=== PATIENT | male | born 1955 | race African-American/Black ===

== ENCOUNTER 2016-10-19 12:26 | Emergency (ER) | payer MEDICARE ==
[2016-10-19] MEDS ORDERED: NORMAL SALINE 1000 ML 1,000 ML IV ONE (12:53)
--- NOTE | 2016-10-19 12:54 | ER Document Report ---
ED Medical Screen (RME) - General Stated Complaint: PASSING OUT Mode of Arrival: Wheelchair Information source: Patient Notes: Patient complains of nausea and vomiting for the past 3 days with abdominal pain. Patient reports black coffee-ground emesis. Patient does report syncopal episode 3 today. Patient does complain of dizziness. hx: Hypertension, diabetes I have greeted and performed a rapid initial assessment of this patient. A comprehensive ED assessment and evaluation of the patient, analysis of test results and completion of the medical decision making process will be conducted by additional ED providers. TRAVEL OUTSIDE OF THE [place] IN LAST 30 DAYS: No - Related Data Allergies/Adverse Reactions: lisinopril [Lisinopril] Allergy (Intermediate, Verified 10/19/16 12:50) Unknown reaction Past Medical History - Past Medical History Cardiac Medical History: Reports: Hx Hypercholesterolemia, Hx Hypertension Pulmonary Medical History: Denies: Hx Tuberculosis Endocrine Medical History: Reports: Hx Diabetes Mellitus Type 2 Musculoskeltal Medical History: Reports Hx Arthritis, Reports Hx Musculoskeletal Deformity, Reports Hx Musculoskeletal Trauma Psychiatric Medical History: Reports: Hx Bipolar Disorder, Hx Depression Past Surgical History: Reports: Hx Orthopedic Surgery - left knee - Immunizations Immunizations up to date: Yes Hx Diphtheria, Pertussis, Tetanus Vaccination: Yes Physical Exam - Abdominal Tenderness: Tender - Right side of abdomen
[2016-10-19 13:49] LABS: ABSOLUTE LYMPHOCYTES (AUTO) 1.6 10^3/uL (0.5-4.7); ABSOLUTE MONOCYTES (AUTO) 0.8 10^3/uL (0.1-1.4); ABSOLUTE NEUT (AUTO) 11.7 10^3/uL (1.7-8.2); BASOPHILS % (AUTO) 0.2 % (0-2); EOSINOPHILS % (AUTO) 0.1 % (0-6); HEMATOCRIT 24.4 % (37.9-51.0); HEMOGLOBIN 8.1 g/dL (13.5-17.0); HGB HCT DIFFERENCE -0.1; LYMPHOCYTES % (AUTO) 11.3 % (13-45); MEAN CORPUSCULAR HEMOGLOBIN 29.1 pg (27.0-33.4); MEAN CORPUSCULAR HGB CONC 33.2 g/dL (32.0-36.0); MEAN CORPUSCULAR VOLUME 88 fl (80-97); MONOCYTES % (AUTO) 5.3 % (3-13); RED BLOOD COUNT 2.78 10^6/uL (4.35-5.55); RED CELL DISTRIBUTION WIDTH 12.8 % (11.5-14.0); SEGMENTED NEUTROPHILS % (AUTO) 83.1 % (42-78); WHITE BLOOD COUNT 14.1 10^3/uL (4.0-10.5)
[2016-10-19] MEDS ORDERED: NORMAL SALINE 250 ML IV PRN (14:01)
[2016-10-19] MEDS ORDERED: PANTOPRAZOLE SODIUM 40 MG VIAL IV ONE ×2 (14:03→15:31)
[2016-10-19 14:08] LABS: ALANINE AMINOTRANSFERASE 25 U/L (21-72); ALBUMIN 3.7 g/dL (3.5-5.0); ALKALINE PHOSPHATASE 53 U/L (38-126); ANION GAP 18 (5-19); ASPARTATE AMINO TRANSFERASE 25 U/L (17-59); BILIRUBIN,TOTAL 0.5 mg/dL (0.2-1.3); BLOOD UREA NITROGEN 76 mg/dL (7-20); CALCIUM 8.3 mg/dL (8.4-10.2); CARBON DIOXIDE 24 mmol/L (22-30); CHLORIDE 93 mmol/L (98-107); CREATINE KINASE 670 U/L (55-170); CREATININE RESULT 5.28 mg/dL (0.52-1.25); LIPASE 291.3 U/L (23-300); POTASSIUM 4.6 mmol/L (3.6-5.0); SODIUM 135.3 mmol/L (137-145); TOTAL PROTEIN 6.7 g/dL (6.3-8.2)
--- NOTE | 2016-10-19 14:10 | ER Document Report ---
ED General - General Chief Complaint: Syncope Stated Complaint: PASSING OUT Mode of Arrival: Wheelchair Information source: Patient Notes: This is a very pleasant 60-year-old woman who presents to the ER with symptoms of passing out. He states that he has passed out 5-6 times since which was 4 days ago. He also states that for each of those 4 days he has had several episodes of coffee-ground emesis. He also endorses upper abdominal discomfort for the past month. He has a prior history of alcohol abuse but states he has been sober for 9 months and just picked up his nine-month chip. He has no known history of alcoholic liver disease or esophageal varices. He has never had GI bleeding in the past however he does state that he takes occasional Goody[employer] powders most recently earlier today. He denies any gross blood in his stool or melena. His syncopal episodes appear to be orthostatic in nature. He denies any chest pain at this time or recently. TRAVEL OUTSIDE OF THE [place] IN LAST 30 DAYS: No - Related Data Allergies/Adverse Reactions: lisinopril [Lisinopril] Allergy (Intermediate, Verified 10/19/16 12:50) Unknown reaction Past Medical History - General Information source: Patient - Social History Smoking Status: Unknown if Ever Smoked Chew tobacco use (# tins/day): No Frequency of alcohol use: sober 9 months Drug Abuse: None Family History: Reviewed & Not Pertinent, Arthritis, DM, Hypertension Patient has suicidal ideation: No Patient has homicidal ideation: No - Past Medical History Cardiac Medical History: Reports: Hx Hypercholesterolemia, Hx Hypertension Pulmonary Medical History: Denies: Hx Tuberculosis Endocrine Medical History: Reports: Hx Diabetes Mellitus Type 2 Renal/ Medical History: Denies: Hx Peritoneal Dialysis Musculoskeltal Medical History: Reports Hx Arthritis, Reports Hx Musculoskeletal Deformity, Reports Hx Musculoskeletal Trauma Psychiatric Medical History: Reports: Hx Bipolar Disorder, Hx Depression Past Surgical History: Reports: Hx Orthopedic Surgery - left knee - Immunizations Immunizations up to date: Yes Hx Diphtheria, Pertussis, Tetanus Vaccination: Yes Hx Pneumococcal Vaccination: 11/13/11 Review of Systems - Review of Systems Notes: REVIEW OF SYSTEMS: CONSTITUTIONAL : Denies fever, chills, or sweats. Denies recent illness. EENT: Denies eye, ear, throat, or mouth pain or symptoms. Denies nasal or sinus congestion. CARDIOVASCULAR: Denies chest pain. RESPIRATORY: Denies cough, cold, or chest congestion. Denies shortness of breath, difficulty breathing, or wheezing. GASTROINTESTINAL: As per history of present illness GENITOURINARY: Denies difficulty urinating, painful urination, burning, frequency, or blood in urine. MUSCULOSKELETAL: Denies neck or back pain or joint pain or swelling. SKIN: Denies rash or skin lesions. HEMATOLOGIC : Denies easy bruising or bleeding. LYMPHATIC: Denies swollen, enlarged glands. NEUROLOGICAL: Denies altered mental status. Denies headache. Denies weakness or paralysis or loss of use of either side. Denies problems with gait or speech. Denies sensory or motor loss. Syncope as per history of present illness PSYCHIATRIC: Denies anxiety or stress or depression. ALL OTHER SYSTEMS REVIEWED AND NEGATIVE. Physical Exam - Vital signs Vitals: Temp Pulse BP Pulse Ox 98.9 F 105 H 86/59 L 94 10/19/16 12:48 10/19/16 12:48 10/19/16 12:48 10/19/16 12:48 PHYSICAL EXAMINATION: GENERAL: Well-appearing, well-nourished and in no acute distress. BP during my exam 113/74. He is smiling, alert, conversant and pleasant HEAD: Atraumatic, normocephalic. EYES: Pupils equal round and reactive to light, extraocular movements intact, sclera anicteric, conjunctiva are pale ENT: nares patent, oropharynx clear without exudates. Moist mucous membranes. NECK: Normal range of motion, supple without lymphadenopathy LUNGS: Breath sounds clear to auscultation bilaterally and equal. No wheezes rales or rhonchi. HEART: Regular rhythm, tachycardic rate at 110, without murmurs ABDOMEN: Soft, mild epigastric TTP, normoactive bowel sounds. No guarding, no rebound. No masses appreciated. EXTREMITIES: Normal range of motion, no pitting or edema. NEUROLOGICAL: Cranial nerves grossly intact. Normal speech Normal sensory, motor, and reflex exams. PSYCH: Normal mood, normal affect. SKIN: Warm, Dry, normal turgor, no rashes or lesions noted. Course - Re-evaluation Re-evalutation: 10/19/16 14:46 Patient was reassessed. He is still alert and conversant and pleasant. We discussed his laboratory evaluation including his new anemia as well of his as well as his acute renal failure. He has been typed and crossed for 2 units of packed red blood cells. At this time because we do not have gastroenterology coverage, [facility] will [facility]. He will need EGD. He denies any known history of GI bleed, gastric ulcers or peptic ulcer disease, or esophageal varices. 10/19/16 15:42 Discussed with GI at [facility] Dr. Saeed at 1520. She is agreeable with the consult in transfer. She does recommend a bolus of 80 mg Protonix followed by drip. She is also agreeable with the transfusion of packed RBCs. The accepting physician at [facility] will be . Patient and his family are agreeable with the transfer and they are understanding of the plan. All questions were answered. - Vital Signs Vital signs: Temp Pulse Resp BP Pulse Ox 98.9 F 105 H 14 113/75 100 10/19/16 12:48 10/19/16 12:48 10/19/16 13:44 10/19/16 13:44 10/19/16 13:44 - Laboratory Result Diagrams: 10/19/16 13:21 10/19/16 13:21 Laboratory results interpreted by me: 10/19/16 10/19/16 10/19/16 13:14 13:21 13:21 WBC 14.1 H RBC 2.78 L Hgb 8.1 L Hct 24.4 L Seg Neutrophils % 83.1 H Lymphocytes % 11.3 L Absolute Neutrophils 11.7 H Sodium 135.3 L Chloride 93 L BUN 76 H Creatinine 5.28 H Est GFR ( Amer) 13 L Est GFR (Non-Af Amer) 11 L Glucose 403 H* POC Glucose 396 H Calcium 8.3 L Creatine Kinase 670 H CK-MB (CK-2) Crossmatch 10/19/16 10/19/16 13:21 14:12 WBC RBC Hgb Hct Seg Neutrophils % Lymphocytes % Absolute Neutrophils Sodium Chloride BUN Creatinine Est GFR ( Amer) Est GFR (Non-Af Amer) Glucose POC Glucose Calcium Creatine Kinase CK-MB (CK-2) 4.65 H Crossmatch See Detail - EKG Interpretation by Me Additional EKG results interpreted by me: 10/19/16 14:47 EKG at 1351 demonstrates normal sinus rhythm with a rate of 97 he does demonstrate some mild T-wave abnormalities including flattening inferiorly. There is no ST elevation or depression. Critical Care Note - Critical Care Note Total time excluding time spent on procedures (mins): 35 Comments: Critical care time spent obtaining history from patient or surrogate, discussions with consultants, development of treatment plan with patient or surrogate, evaluation of patient's response to treatment, examination of patient , ordering and performing treatments and interventions, ordering and review of laboratory studies, re-evaluation of patient's condition, ordering and review of radiographic studies and review of old charts Discharge - Discharge Clinical Impression: Upper GI bleed, Symptomatic anemia Hyperglycemia due to type 2 diabetes mellitus Qualifiers: Diabetes mellitus termite renewal inspector insulin use: without detention use Qualified Code(s ): E11.65 - Type 2 diabetes mellitus with hyperglycemia Acute renal failure (ARF) Qualifiers: Acute renal failure type: unspecified Qualified Code(s): N17.9 - Acute kidney failure, unspecified Condition: Stable Disposition: [facility], [facility]
[2016-10-19 14:15] LABS: GLUCOSE 403 mg/dL (75-110)
[2016-10-19 14:20] LABS: CREATINE KINASE MB 4.65 ng/mL (<4.55); TROPONIN I < 0.012 ng/mL
[2016-10-19] MEDS ORDERED: INSULIN REG, HUMAN 100 UNIT/ML 3 ML VIAL (PYX) SUBCUT ONE (14:32)
[2016-10-19] MEDS ORDERED: ONDANSETRON HCL INJ/PF 4 MG/2 ML SDV IV ONE (14:45)
[2016-10-19] MEDS ORDERED: MORPHINE SULFATE 10 MG/ML INJ IV ONE (14:45)
[2016-10-19 15:09] LABS: PROTHROMBIN TIME 15.2 SEC (11.4-15.4)
[2016-10-19 15:10] LABS: PARTIAL THROMBOPLASTIN TIME 30.8 SEC (23.5-35.8)
[2016-10-19] MEDS ORDERED: PANTOPRAZOLE SODIUM 40 MG VIAL IV PRN (15:35)
[2016-10-19 17:08] VITALS: BP 136/81
--- NOTE | 2016-10-19 17:09 | ER Document Report ---
Doctor's Note Notes: 10/19/16 17:08 Patient reevaluation at time of transfer to 5 minutes. He is alert and oriented and has remained hemodynamically stable. He will be transferred to [facility] for gastroenterology consultation and EGD. He and his are comfortable with this plan.
--- NOTE | 2016-10-19 19:24 | EKG REPORT ---
SEVERITY:- BORDERLINE ECG - SINUS RHYTHM BORDERLINE T WAVE ABNORMALITIES : Confirmed by: Andie Peterson 19-Oct-2016 19:23:34
== END 2016-10-19 17:17 | disposition short-term general hospital (02) ==
LOC: ER 12:26
DX: K92.2 Gastrointestinal hemorrhage, unspecified (principal); D50.0 Iron deficiency anemia secondary to blood loss (chronic); E11.65 Type 2 diabetes mellitus with hyperglycemia; N17.9 Acute kidney failure, unspecified; R55 Syncope and collapse; R11.2 Nausea with vomiting, unspecified; E78.00 Pure hypercholesterolemia, unspecified; I10 Essential (primary) hypertension
CPT/HCPCS: 93005; 96376; 99291; 96361; 96374; 96375; 86900; 86901; 36415; 82553; 36430; 86850; 82962; 82550; 83690; 85025; 85610; 85730; 82272; 80053; 84484; 86920; 71010; 93010; P9016; J2270; C9113; A9270; J2405; J7030; J1815; S0164

== ENCOUNTER 2017-01-24 21:45 | Inpatient (IN) | payer MEDICARE ==
[2017-01-24 23:02] LABS: HEMATOCRIT 30.7 % (37.9-51.0); HEMOGLOBIN 10.3 g/dL (13.5-17.0); HGB HCT DIFFERENCE 0.2; MEAN CORPUSCULAR HGB CONC 33.6 g/dL (32.0-36.0); MEAN CORPUSCULAR VOLUME 86 fl (80-97); RED BLOOD COUNT 3.56 10^6/uL (4.35-5.55); RED CELL DISTRIBUTION WIDTH 14.6 % (11.5-14.0); WHITE BLOOD COUNT 14.7 10^3/uL (4.0-10.5)
[2017-01-24] MEDS ORDERED: NALOXONE HCL INJ 2 MG/2 ML DISP.SYRIN ONE ×2 (23:11→23:28)
[2017-01-24 23:12] LABS: ALANINE AMINOTRANSFERASE 20 U/L (21-72); ALBUMIN 4.4 g/dL (3.5-5.0); ALKALINE PHOSPHATASE 68 U/L (38-126); ANION GAP 18 (5-19); ASPARTATE AMINO TRANSFERASE 16 U/L (17-59); BILIRUBIN,DIRECT 0.6 mg/dL (0.0-0.4); BILIRUBIN,TOTAL 0.6 mg/dL (0.2-1.3); BLOOD UREA NITROGEN 47 mg/dL (7-20); CALCIUM 8.4 mg/dL (8.4-10.2); CARBON DIOXIDE 16 mmol/L (22-30); CHLORIDE 105 mmol/L (98-107); CREATININE RESULT 5.08 mg/dL (0.52-1.25); GLUCOSE 187 mg/dL (75-110); POTASSIUM 5.9 mmol/L (3.6-5.0); SODIUM 138.7 mmol/L (137-145); TOTAL PROTEIN 8.1 g/dL (6.3-8.2)
[2017-01-24 23:14] LABS: ALCOHOL < 10 mg/dL (NONE DETECTED)
[2017-01-24] MEDS ORDERED: NORMAL SALINE 500 ML with NALOXONE HCL 2 MG IV PRN ×2 (23:16)
[2017-01-24] MEDS ORDERED: NORMAL SALINE 1000 ML 1,000 ML IV ONE (23:19)
--- NOTE | 2017-01-24 23:21 | ER Document Report ---
ED General - General Stated Complaint: POSSIBLE ACCIDENTAL OVERDOSE Time Seen by Provider: 01/24/17 22:51 Cannot obtain history due to: Intoxicated, Altered mental status Notes: Patient is a 61-year-old male with past mental history of chronic kidney disease , chronic neuropathy for which she apparently takes oxycodone who presents today by EMS after his noticed that increasingly he appeared obtunded, with sonorous respirations. She states when he became unresponsive tonight and appeared totally breathing several times a minute she called EMS. EMS gave patient a total of 2 mg of IV naloxone with normalization of his mental status. At time of my initial assessment, patient is somewhat lethargic but is able to wake up with noxious stimuli. He does not provide additional meaningful history secondary to his intoxicated status. Of note, he picked up a oxycodone 10 mg prescription last night and 13 pills are already missing. TRAVEL OUTSIDE OF THE [place] IN LAST 30 DAYS: No - Related Data Allergies/Adverse Reactions: lisinopril [Lisinopril] Allergy (Intermediate, Verified 10/19/16 12:50) Unknown reaction Past Medical History - General Information source: Relative, Emergency Med Personnel Cannot obtain history due to: Altered mental status - Social History Smoking Status: Unknown if Ever Smoked Frequency of alcohol use: None Drug Abuse: Prescription drugs Lives with: Spouse/Significant other Family History: Reviewed & Not Pertinent, Arthritis, DM, Hypertension - Past Medical History Cardiac Medical History: Reports: Hx Hypercholesterolemia, Hx Hypertension Pulmonary Medical History: Denies: Hx Tuberculosis Endocrine Medical History: Reports: Hx Diabetes Mellitus Type 2 Renal/ Medical History: Denies: Hx Peritoneal Dialysis Musculoskeltal Medical History: Reports Hx Arthritis, Reports Hx Musculoskeletal Deformity, Reports Hx Musculoskeletal Trauma Psychiatric Medical History: Reports: Hx Bipolar Disorder, Hx Depression Past Surgical History: Reports: Hx Orthopedic Surgery - left knee - Immunizations Immunizations up to date: Yes Hx Diphtheria, Pertussis, Tetanus Vaccination: Yes Hx Pneumococcal Vaccination: 11/13/11 Review of Systems - Review of Systems -: Yes ROS unobtainable due to patient's medical condition Physical Exam - Vital signs Vitals: Pulse Ox 98 01/24/17 21:57 Interpretation: Hypotensive Notes: PHYSICAL EXAMINATION: GENERAL: Somewhat lethargic but does respond to noxious stimuli HEAD: Atraumatic, normocephalic. EYES: Pupils are pinpoint, reactive to light extraocular movements intact, sclera anicteric, conjunctiva are normal. ENT: nares patent, oropharynx clear without exudates. Dry mucous membranes. NECK: Normal range of motion, supple without lymphadenopathy LUNGS: Breath sounds clear to auscultation bilaterally and equal. No wheezes rales or rhonchi. HEART: Regular rate and rhythm without murmurs ABDOMEN: Soft, nontender, normoactive bowel sounds. No guarding, no rebound. No masses appreciated. EXTREMITIES: Normal range of motion, no pitting or edema. No cyanosis. NEUROLOGICAL: No focal neurological deficits. Moves all extremities spontaneously and on command. PSYCH: Somewhat confused, slow to respond. Easily response to noxious stimuli. SKIN: Warm, Dry, normal turgor, no rashes or lesions noted. Course - Re-evaluation Re-evalutation: 01/24/17 23:00 Patient presents after receiving 2 mg of IV naloxone for presumed narcotic overdose now more responsive. He was initially with agonal respirations, completely unresponsive. After an IV was established and he received naloxone he did have improvement of his respiratory and mental status. At the time of my initial assessment patient is somewhat somnolent but is maintaining his airway and responsive after noxious stimuli. 2320-patient is now again completely unresponsive. His pupils are again pinpoint and his blood pressure has rapidly deteriorated from low 100s systolic down to 82 systolic. I immediately came to the bedside and pushed 0.2 mg of naloxone over approximately 30 seconds and patient did have improvement of his mental status to the point where he is now speaking in coherent sentences, his respirations normalized and his blood pressure normalized. At this point that is a total of 2.2 mg of naloxone in less than 1.5 hours in order to ensure the patient does not received apnea. Therefore patient will be placed on a naloxone drip. He will require admission to the hospital. 01/24/17 23:34 Patient's laboratories do demonstrate his baseline chronic kidney disease and a mild anemia both of which are simple from the last time he was seen in this emergency department. I discussed this case with Dr. Anthony Jonas who is accepted this patient to the ICU. I have a long conversation with the patient and his about the addictive nature of oxycodone and how he clearly has trouble with narcotic drug abuse. I have informed him as well as the that there is no indication to be on chronic narcotics like this and they should be discontinued immediately. 01/25/17 02:30 Patient has remained alert, oriented without any further episodes of respiratory depression or hypotension on a naloxone drip. - Vital Signs Vital signs: Temp Pulse Resp BP Pulse Ox 81 13 126/75 H 96 01/25/17 00:00 01/25/17 02:14 01/25/17 02:12 01/25/17 02:14 - Laboratory Result Diagrams: 01/24/17 22:50 01/24/17 22:50 Laboratory results interpreted by me: 01/24/17 01/24/17 01/24/17 22:50 22:50 22:50 WBC 14.7 H RBC 3.56 L Hgb 10.3 L Hct 30.7 L RDW 14.6 H Seg Neuts % (Manual) 84 H Band Neutrophils % 2 L Lymphocytes % (Manual) 8 L Abs Neuts (Manual) 12.6 H Potassium 5.9 H Carbon Dioxide 16 L BUN 47 H Creatinine 5.08 H Est GFR ( Amer) 14 L Est GFR (Non-Af Amer) 12 L Glucose 187 H Direct Bilirubin 0.6 H AST 16 L ALT 20 L Creatine Kinase 187 H Salicylates < 1.0 L Acetaminophen < 10 L - EKG Interpretation by Me Additional EKG results interpreted by me: 01/25/17 02:31 Normal sinus rhythm. Rate 83. No ST elevations or depressions. QTC is 423. Critical Care Note - Critical Care Note Total time excluding time spent on procedures (mins): 38 Comments: Critical care time spent obtaining history from patient or surrogate, discussions with consultants, development of treatment plan with patient or surrogate, evaluation of patient's response to treatment, examination of patient , ordering and performing treatments and interventions, ordering and review of laboratory studies, re-evaluation of patient's condition, ordering and review of radiographic studies and review of old charts Discharge - Discharge Clinical Impression: Hypotension due to drugs Narcotic overdose Qualifiers: Encounter type: initial encounter Injury intent: accidental or unintentional Qualified Code(s): T40.601A - Poisoning by unspecified narcotics, accidental ( unintentional), initial encounter Chronic kidney disease Qualifiers: Chronic kidney disease stage: unspecified stage Qualified Code(s): N18.9 - Chronic kidney disease, unspecified Disposition: ADMITTED INPATIENT Admitting Provider: [facility] Unit Admitted: ICU
[2017-01-24 23:25] LABS: ANISOCYTOSIS SLIGHT; BAND NEUTROPHILS % (MANUAL) 2 % (3-5); BASOPHILS % (MANUAL) 0 % (0-2); EOSINOPHILS % (MANUAL) 1 % (0-6); LYMPHOCYTES % (MANUAL) 8 % (13-45); TOTAL CELLS COUNTED 100
[2017-01-24] MEDS ORDERED: SODIUM POLYSTYRENE SULFONATE 15 GM/60 ML PO ONE (23:25)
[2017-01-24] MEDS ORDERED: LACTULOSE SYRUP 20 GM/30 ML UDCUP PO ONE (23:25)
[2017-01-24 23:26] LABS: PLATELET CLUMPS PRESENT
[2017-01-24] MEDS ORDERED: DEXTROSE 50%-WATER 25 GM/50 ML DISP.SYRIN IV PRN ×2 (23:27)
[2017-01-24] MEDS ORDERED: IPRATROPIUM/ALBUTEROL 0.5-2.5 MG/3 ML AMPUL NEB PRN (23:27)
[2017-01-24] MEDS ORDERED: DEXTROSE 40% GEL 15 GM TUBE PO PRN ×2 (23:27)
[2017-01-24] MEDS ORDERED: MAG HYDROX/AL HYDROX/SIMETH SUSP 30 ML UDCUP PO PRN (23:27)
[2017-01-24] MEDS ORDERED: GLUCAGON,HUMAN RECOMB 1 MG INJ IM PRN (23:27)
[2017-01-24] MEDS ORDERED: ACETAMINOPHEN 325 MG TABLET PO PRN (23:27)
[2017-01-24 23:28] LABS: OVALOCYTES SLIGHT; POIKILOCYTOSIS SLIGHT
[2017-01-24] MEDS ORDERED: METOPROLOL TARTRATE 50 MG TABLET PO SCH (23:30)
[2017-01-24] MEDS ORDERED: NORMAL SALINE 1000 ML 1,000 ML IV SCH (23:30)
[2017-01-25 00:07] LABS: CREATINE KINASE MB 2.43 ng/mL (<4.55)
[2017-01-25 00:18] LABS: TROPONIN I < 0.012 ng/mL
[2017-01-25] MEDS: IPRATROPIUM/ALBUTEROL 0.5-2.5 MG/3 ML AMPUL NEB SCH ×3 (00:31→16:03)
[2017-01-25 04:32] LABS: APPEARANCE,URINE SLIGHTLY-CLOUDY; BILIRUBIN,URINE NEGATIVE (NEGATIVE); GLUCOSE, URINE NEGATIVE (NEGATIVE); KETONES,URINE NEGATIVE (NEGATIVE); LEUKOCYTE ESTERASE,URINE NEGATIVE (NEGATIVE); NITRITE,URINE NEGATIVE (NEGATIVE); PROTEIN,URINE NEGATIVE (NEGATIVE); URINE SPECIFIC GRAVITY 1.013; UROBILINOGEN,URINE NEGATIVE mg/dL (<2.0)
[2017-01-25 04:58] LABS: URINE BARBITURATES SCREEN NEGATIVE; URINE METHADONE SCREEN NEGATIVE; URINE PHENCYCLIDINE SCREEN NEGATIVE
[2017-01-25 05:05] LABS: URINE OPIATES LOW UNCONFIRMED POSITIVE
[2017-01-25 05:06] LABS: ABSOLUTE EOSINOPHILS # (AUTO) 0.4 10^3/uL (0.0-0.6); ABSOLUTE LYMPHOCYTES (AUTO) 1.4 10^3/uL (0.5-4.7); ABSOLUTE MONOCYTES (AUTO) 1.2 10^3/uL (0.1-1.4); ABSOLUTE NEUT (AUTO) 10.8 10^3/uL (1.7-8.2); BASOPHILS % (AUTO) 0.3 % (0-2); HEMATOCRIT 28.1 % (37.9-51.0); HEMOGLOBIN 9.1 g/dL (13.5-17.0); HGB HCT DIFFERENCE -0.8; LYMPHOCYTES % (AUTO) 10.3 % (13-45); MEAN CORPUSCULAR HEMOGLOBIN 28.4 pg (27.0-33.4); MEAN CORPUSCULAR HGB CONC 32.5 g/dL (32.0-36.0); MEAN CORPUSCULAR VOLUME 88 fl (80-97); MONOCYTES % (AUTO) 8.4 % (3-13); RED BLOOD COUNT 3.21 10^6/uL (4.35-5.55); RED CELL DISTRIBUTION WIDTH 14.4 % (11.5-14.0); WHITE BLOOD COUNT 13.8 10^3/uL (4.0-10.5)
[2017-01-25] MEDS: HEPARIN SOD (PORCINE) 5,000 UNIT/ML 1 ML SYRINGE SUBCUT SCH ×3 (05:18→21:44)
[2017-01-25 05:23] LABS: ANION GAP 12 (5-19); BLOOD UREA NITROGEN 52 mg/dL (7-20); CALCIUM 8.1 mg/dL (8.4-10.2); CARBON DIOXIDE 18 mmol/L (22-30); CHLORIDE 109 mmol/L (98-107); CREATINE KINASE 202 U/L (55-170); CREATININE RESULT 4.98 mg/dL (0.52-1.25); GLUCOSE 160 mg/dL (75-110); POTASSIUM 5.3 mmol/L (3.6-5.0); SODIUM 139.2 mmol/L (137-145)
[2017-01-25 05:42] LABS: TROPONIN I < 0.012 ng/mL
--- NOTE | 2017-01-25 08:46 | PDOC PROGRESS REPORT ---
Subjective Progress Note for:: 01/18/17 Subjective:: Patient reportedly without any discomfort. Patient is resting comfortably. Admitted for altered mental status, given Narcan and mental status improved. Creatinine is worse than baseline. No reported temperature spikes, shortness of breath, nausea or vomiting. No reported diarrhea. Physical Exam Vital Signs: Temp Pulse Resp BP Pulse Ox 97.2 F 80 11 L 108/68 99 01/25/17 07:54 01/25/17 07:54 01/25/17 07:54 01/25/17 07:54 01/25/17 07:54 Intake & Output 01/24/17 01/25/17 01/26/17 06:59 06:59 06:59 Intake Total 0 Output Total 700 35 Balance -700 -35 Weight 94 kg General appearance: PRESENT: no acute distress, other - Resting comfortably Head exam: PRESENT: normocephalic Eye exam: PRESENT: conjunctiva pink Mouth exam: PRESENT: dry mucosa, neck supple Neck exam: ABSENT: carotid bruit, JVD Respiratory exam: PRESENT: clear to auscultation dimitrios. ABSENT: rhonchi, wheezes Cardiovascular exam: PRESENT: RRR. ABSENT: gallop GI/Abdominal exam: PRESENT: hypoactive bowel sounds, soft. ABSENT: distended, tenderness Extremities exam: ABSENT: pedal edema Neurological exam: PRESENT: altered Skin exam: PRESENT: dry, warm. ABSENT: cyanosis Results Laboratory Results: 01/25/17 04:55 01/25/17 04:55 01/25/17 01/25/17 01/25/17 04:15 04:55 04:55 WBC 13.8 H RBC 3.21 L Hgb 9.1 L Hct 28.1 L MCV 88 MCH 28.4 MCHC 32.5 RDW 14.4 H Plt Count 234 Seg Neutrophils % 78.0 Lymphocytes % 10.3 L Monocytes % 8.4 Eosinophils % 3.0 Basophils % 0.3 Absolute Neutrophils 10.8 H Absolute Lymphocytes 1.4 Absolute Monocytes 1.2 Absolute Eosinophils 0.4 Absolute Basophils 0.0 Sodium 139.2 Potassium 5.3 H Chloride 109 H Carbon Dioxide 18 L Anion Gap 12 BUN 52 H Creatinine 4.98 H Est GFR ( Amer) 14 L Est GFR (Non-Af Amer) 12 L Glucose 160 H Calcium 8.1 L Urine Color YELLOW Urine Appearance SLIGHTLY-CLOUDY Urine pH 5.0 Ur Specific [place] 1.013 Urine Protein NEGATIVE Urine Glucose (UA) NEGATIVE Urine Ketones NEGATIVE Urine Blood SMALL H Urine Nitrite NEGATIVE Ur Leukocyte Esterase NEGATIVE Urine WBC (Auto) 4 Urine RBC (Auto) 0 01/25/17 01/25/17 04:55 04:55 Creatine Kinase 202 H CK-MB (CK-2) 2.60 Troponin I < 0.012 Assessment & Plan - Diagnosis (1) Altered mental status, unspecified Qualifiers: Altered mental status type: unspecified Qualified Code(s): R41.82 - Altered mental status, unspecified Is this a current diagnosis for this admission?: Yes (2) Hypotension due to drugs Is this a current diagnosis for this admission?: Yes (3) Acute renal failure Qualifiers: Acute renal failure type: unspecified Qualified Code(s): N17.9 - Acute kidney failure, unspecified (4) Hyperkalemia Is this a current diagnosis for this admission?: Yes (5) Leukocytosis Qualifiers: Leukocytosis type: unspecified Qualified Code(s): D72.829 - Elevated white blood cell count, unspecified Is this a current diagnosis for this admission?: Yes (6) Anemia Qualifiers: Anemia type: unspecified type Qualified Code(s): D64.9 - Anemia, unspecified Is this a current diagnosis for this admission?: Yes (7) Type II diabetes mellitus Qualifiers: Diabetes mellitus complication status: with unspecified complications Diabetes mellitus computer terminal operator insulin use: unspecified computer terminal operator insulin use status Qualified Code(s): E11.8 - Type 2 diabetes mellitus with unspecified complications Is this a current diagnosis for this admission?: Yes (8) Hyperlipidemia Qualifiers: Hyperlipidemia type: unspecified Qualified Code(s): E78.5 - Hyperlipidemia, unspecified Is this a current diagnosis for this admission?: Yes (9) Peripheral neuropathy Qualifiers: Peripheral neuropathy type: polyneuropathy, unspecified Qualified Code(s): G62.9 - Polyneuropathy, unspecified Is this a current diagnosis for this admission?: Yes (10) Essential hypertension Is this a current diagnosis for this admission?: Yes (11) Bipolar disorder Qualifiers: Active/Remission status: remission status unspecified Qualified Code (s): F31.9 - Bipolar disorder, unspecified Is this a current diagnosis for this admission?: Yes (12) Chronic pain syndrome Is this a current diagnosis for this admission?: Yes - Time Time Spent with patient: 25-34 minutes - Plan Summary Plan Summary: Continue IV hydration. Obtain a renal ultrasound. Give Kayexalate and monitor potassium. Monitor hematocrit and obtain anemia profile as well as occult blood in the stool. Discontinue trazodone, hold metoprolol due to hypotension. We'll obtain a chest x-ray, and a urine culture. Continue supportive care.
[2017-01-25] MEDS ORDERED: SODIUM POLYSTYRENE SULFONATE 15 GM/60 ML PO ONE (09:00)
[2017-01-25] MEDS ORDERED: TRAZODONE HCL 50 MG TABLET PO SCH (10:00)
--- NOTE | 2017-01-25 11:36 | EKG REPORT ---
SEVERITY:- NORMAL ECG - SINUS RHYTHM : Confirmed by: Andie Peterson 25-Jan-2017 11:36:01
--- NOTE | 2017-01-25 11:37 | EKG REPORT ---
SEVERITY:- NORMAL ECG - SINUS RHYTHM : Confirmed by: Andie Peterson 25-Jan-2017 11:36:11
[2017-01-25] MEDS: NORMAL SALINE 1000 ML 1,000 ML IV PRN ×2 (11:38→16:09)
[2017-01-25 12:00] LABS: CREATINE KINASE MB 2.67 ng/mL (<4.55); TROPONIN I < 0.012 ng/mL
[2017-01-25] MEDS: INSULIN LISPRO 100 UNIT/ML 3 ML VIAL SUBCUT PRN ×2 (12:39→23:09)
[2017-01-25 18:20] LABS: ANION GAP 18 (5-19); BLOOD UREA NITROGEN 50 mg/dL (7-20); CALCIUM 8.2 mg/dL (8.4-10.2); CARBON DIOXIDE 17 mmol/L (22-30); CHLORIDE 109 mmol/L (98-107); CREATININE RESULT 5.53 mg/dL (0.52-1.25); GLUCOSE 99 mg/dL (75-110); SODIUM 143.9 mmol/L (137-145)
[2017-01-25 18:41] LABS: POTASSIUM 4.2 mmol/L (3.6-5.0)
--- NOTE | 2017-01-25 20:32 | PDOC H&P ---
History of Present Illness Admission Date/PCP: 01/25/17 00:05 JORGE WILLIAMSON Patient complains of: Altered mental status History of Present Illness: LAKIESHA YATES is a 61 year old male with a past medical history of nonoliguric stage V chronic kidney disease, hypertension, diabetes and chronic pain. Patient been in his usual state of health until approximately 3 days ago noting exceptional right sided arthritic shoulder pain. Subsequently losing track of his oxycodone dosing regiment and as a result taking approximately 13 tablets of oxycodone 10 mg over the last 24 hours. He was noted by his to be altered calling EMS finding him apneic he receives 2 mg of Narcan resulting in baseline mental status brought to the emergency room for evaluation where again he becomes apneic and IV Narcan is started. He is referred to the hospitalist for admission. is at bedside admits to several episodes in the past of running out of narcotic medications prematurely. Patient denies suicide ideation or intent. Past Medical History Cardiac Medical History: Reports: Hyperlipidema, Hypertension Pulmonary Medical History: Reports: Chronic Obstructive Pulmonary Disease (COPD) Denies: Tuberculosis Endocrine Medical History: Reports: Diabetes Mellitus Type 2 Musculoskeltal Medical History: Reports: Arthritis, Other - Chronic pain Psychiatric Medical History: Reports: Bipolar Disorder, Depression Hematology: Denies: Anemia, Hemophilia, Sickle Cell Disease Past Surgical History Past Surgical History: Reports: Orthopedic Surgery - left knee Social History Information Source: Patient, Emergency Med Personnel, [facility] Records Lives with: Spouse/Significant other Smoking Status: Never Smoker Frequency of Alcohol Use: None Hx Recreational Drug Use: No Drugs: None Hx Prescription Drug Abuse: Yes - Advance Directive Resuscitation Status: Full Code Family History Family History: Reviewed & Not Pertinent, Arthritis, DM, Hypertension Parental Family History Reviewed: Yes Children Family History Reviewed: Yes Sibling(s) Family History Reviewed.: Yes Medication/Allergy Home Medications: Amlodipine Besylate [Norvasc 10 mg Tablet] 10 mg PO DAILY 01/25/17 Cyclobenzaprine HCl [Flexeril 10 mg Tablet] 10 mg PO Q8 01/25/17 Ergocalciferol (Vitamin D2) [Vitamin D2] 50,000 unit PO Q7D 01/25/17 Gabapentin [Neurontin] 600 mg PO Q6 01/25/17 Glipizide [Glocotrol 10 Mg Tablet] 10 mg PO DAILY 01/25/17 Hydrochlorothiazide 25 mg PO DAILY 01/25/17 Lurasidone HCl [Latuda] 40 mg PO DAILY 01/25/17 Metformin HCl [Glucophage] 1,000 mg PO BID 01/25/17 Metoprolol Tartrate [Lopressor 100 mg Tablet] 100 mg PO Q12 01/25/17 Naproxen 500 mg PO BID 01/25/17 Oxycodone HCl/Acetaminophen [Percocet 10-325 Mg Tablet] 1 tab PO Q12 01/25/17 Sertraline HCl [Zoloft] 100 mg PO DAILY 01/25/17 Sertraline HCl [Zoloft] 100 mg PO DAILY 01/25/17 Trazodone HCl 150 mg PO QHS 01/25/17 Allergies/Adverse Reactions: lisinopril [Lisinopril] Allergy (Intermediate, Verified 10/19/16 12:50) Unknown reaction Review of Systems Constitutional: ABSENT: chills, fever(s), headache(s), weight gain, weight loss Eyes: ABSENT: visual disturbances Ears: ABSENT: hearing changes Cardiovascular: ABSENT: chest pain, dyspnea on exertion, edema, orthropnea, palpitations Respiratory: ABSENT: cough, hemoptysis Gastrointestinal: ABSENT: abdominal pain, constipation, diarrhea, hematemesis, hematochezia, nausea, vomiting Genitourinary: ABSENT: dysuria, hematuria Musculoskeletal: PRESENT: other - Right-sided arthritic shoulder pain. ABSENT: joint swelling Integumentary: ABSENT: rash, wounds Neurological: ABSENT: abnormal gait, abnormal speech, confusion, dizziness, focal weakness, syncope Psychiatric: ABSENT: anxiety, depression, homidical ideation, suicidal ideation Endocrine: ABSENT: cold intolerance, heat intolerance, polydipsia, polyuria Hematologic/Lymphatic: ABSENT: easy bleeding, easy bruising Physical Exam Vital Signs: Temp Pulse Resp BP Pulse Ox 99.2 F 78 18 132/84 H 98 01/25/17 15:34 01/25/17 16:07 01/25/17 16:07 01/25/17 15:34 01/25/17 16:07 Intake & Output 01/24/17 01/25/17 01/26/17 11:59 11:59 11:59 Intake Total 400 1980 Output Total 835 225 Balance -435 1755 Weight 94 kg General appearance: PRESENT: no acute distress, well-developed, well-nourished Head exam: PRESENT: atraumatic, normocephalic Eye exam: PRESENT: conjunctiva pink, EOMI, PERRLA. ABSENT: scleral icterus Ear exam: PRESENT: normal external ear exam Mouth exam: PRESENT: dry mucosa, tongue midline Neck exam: ABSENT: carotid bruit, JVD, lymphadenopathy, thyromegaly Respiratory exam: PRESENT: clear to auscultation dimitrios. ABSENT: rales, rhonchi, wheezes Cardiovascular exam: PRESENT: RRR. ABSENT: diastolic murmur, rubs, systolic murmur Pulses: PRESENT: normal dorsalis pedis pul Vascular exam: PRESENT: normal capillary refill GI/Abdominal exam: PRESENT: firm, hypoactive bowel sounds, soft. ABSENT: distended, guarding, mass, organolmegaly, rebound, tenderness Rectal exam: PRESENT: deferred Extremities exam: PRESENT: full ROM. ABSENT: calf tenderness, clubbing, pedal edema Neurological exam: PRESENT: alert, awake, oriented to person, oriented to place , oriented to time, oriented to situation, CN II-XII grossly intact. ABSENT: motor sensory deficit Psychiatric exam: PRESENT: appropriate affect, normal mood. ABSENT: homicidal ideation, suicidal ideation Skin exam: PRESENT: dry, intact, warm. ABSENT: cyanosis, rash Results Laboratory Results: 01/25/17 04:55 01/25/17 17:45 01/25/17 01/25/17 01/25/17 04:15 04:55 04:55 WBC 13.8 H RBC 3.21 L Hgb 9.1 L Hct 28.1 L MCV 88 MCH 28.4 MCHC 32.5 RDW 14.4 H Plt Count 234 Seg Neutrophils % 78.0 Lymphocytes % 10.3 L Monocytes % 8.4 Eosinophils % 3.0 Basophils % 0.3 Absolute Neutrophils 10.8 H Absolute Lymphocytes 1.4 Absolute Monocytes 1.2 Absolute Eosinophils 0.4 Absolute Basophils 0.0 Retic Count (auto) Absolute Retic Sodium 139.2 Potassium 5.3 H Chloride 109 H Carbon Dioxide 18 L Anion Gap 12 BUN 52 H Creatinine 4.98 H Est GFR ( Amer) 14 L Est GFR (Non-Af Amer) 12 L Glucose 160 H Calcium 8.1 L Iron TIBC % Saturation Ferritin Vitamin B12 Folate Urine Color YELLOW Urine Appearance SLIGHTLY-CLOUDY Urine pH 5.0 Ur Specific Reading 1.013 Urine Protein NEGATIVE Urine Glucose (UA) NEGATIVE Urine Ketones NEGATIVE Urine Blood SMALL H Urine Nitrite NEGATIVE Ur Leukocyte Esterase NEGATIVE Urine WBC (Auto) 4 Urine RBC (Auto) 0 01/25/17 01/25/17 01/25/17 04:55 04:55 17:45 WBC RBC Hgb Hct MCV MCH MCHC RDW Plt Count Seg Neutrophils % Lymphocytes % Monocytes % Eosinophils % Basophils % Absolute Neutrophils Absolute Lymphocytes Absolute Monocytes Absolute Eosinophils Absolute Basophils Retic Count (auto) 0.87 Absolute Retic 0.028 Sodium 143.9 Potassium 4.2 D Chloride 109 H Carbon Dioxide 17 L Anion Gap 18 BUN 50 H Creatinine 5.53 H Est GFR ( Amer) 13 L Est GFR (Non-Af Amer) 10 L Glucose 99 Calcium 8.2 L Iron 13.7 L TIBC 258 % Saturation 5 Ferritin 171.00 Vitamin B12 934.0 H Folate 16.40 Urine Color Urine Appearance Urine pH Ur Specific Reading Urine Protein Urine Glucose (UA) Urine Ketones Urine Blood Urine Nitrite Ur Leukocyte Esterase Urine WBC (Auto) Urine RBC (Auto) 01/25/17 01/25/17 01/25/17 04:55 04:55 11:08 Creatine Kinase 202 H 217 H CK-MB (CK-2) 2.60 Troponin I < 0.012 01/25/17 11:08 Creatine Kinase CK-MB (CK-2) 2.67 Troponin I < 0.012 Impressions: Chest X-Ray 01/25/17 00:00 IMPRESSION: No acute consolidations or pleural effusions are identified. Other findings as noted above Renal Ultrasound 01/25/17 00:00 IMPRESSION: No significant renal abnormalities are identified. Other findings as noted above Assessment & Plan - Diagnosis (1) Opiate overdose Is this a current diagnosis for this admission?: YesPlan: ICU admission, IV Narcan and supportive measures, consider psych eval (2) Acute on chronic renal failure Is this a current diagnosis for this admission?: YesPlan: Likely Secondary to dehydration however all evaluate a total CK to rule out rhabdomyolysis, the patient is nonoliguric will trial fluid challenge and follow -up chemistry. Avoiding nephrotoxic meds and doses (3) Hyperkalemia Is this a current diagnosis for this admission?: YesPlan: Secondary to opiate-induced constipation. No peak T waves. I will order Kayexalate and lactulose with reevaluation of chemistry - Time Time Spent: 50 to 70 Minutes - Inpatient Certification Medical Necessity: Need Close Monitoring Due to Risk of Patient Decompensation
[2017-01-25] MEDS: METOPROLOL TARTRATE 100 MG TABLET PO SCH (21:43)
[2017-01-25] MEDS: TRAZODONE HCL 50 MG TABLET PO SCH (21:44)
[2017-01-25] MEDS ORDERED: AMLODIPINE BESYLATE 10 MG TABLET PO ONE (22:00)
[2017-01-26] MEDS: IPRATROPIUM/ALBUTEROL 0.5-2.5 MG/3 ML AMPUL NEB SCH ×4 (00:23→23:54)
[2017-01-26] MEDS: NORMAL SALINE 1000 ML 1,000 ML IV PRN ×2 (00:47→06:37)
[2017-01-26] MEDS: HEPARIN SOD (PORCINE) 5,000 UNIT/ML 1 ML SYRINGE SUBCUT SCH ×3 (05:31→21:41)
[2017-01-26 06:23] LABS: HEMATOCRIT 28.3 % (37.9-51.0); HEMOGLOBIN 9.3 g/dL (13.5-17.0); HGB HCT DIFFERENCE -0.4; MEAN CORPUSCULAR HEMOGLOBIN 28.7 pg (27.0-33.4); MEAN CORPUSCULAR HGB CONC 32.8 g/dL (32.0-36.0); MEAN CORPUSCULAR VOLUME 88 fl (80-97); RED BLOOD COUNT 3.22 10^6/uL (4.35-5.55); RED CELL DISTRIBUTION WIDTH 14.4 % (11.5-14.0); WHITE BLOOD COUNT 11.1 10^3/uL (4.0-10.5)
[2017-01-26 06:51] LABS: ANION GAP 14 (5-19); BLOOD UREA NITROGEN 49 mg/dL (7-20); CALCIUM 7.9 mg/dL (8.4-10.2); CARBON DIOXIDE 15 mmol/L (22-30); CHLORIDE 111 mmol/L (98-107); CREATININE RESULT 5.26 mg/dL (0.52-1.25); GLUCOSE 128 mg/dL (75-110); MAGNESIUM 1.4 mg/dL (1.6-2.3); POTASSIUM 4.5 mmol/L (3.6-5.0); SODIUM 140.2 mmol/L (137-145)
--- NOTE | 2017-01-26 10:31 | PDOC PROGRESS REPORT ---
Subjective Progress Note for:: 01/26/17 Subjective:: More awake and alert and responsive. No reported temperature spikes, or respiratory distress. Patient denies any coughing, paroxysmal nocturnal dyspnea , orthopnea. Denies any chest pain or chest congestion. Physical Exam Vital Signs: Temp Pulse Resp BP Pulse Ox 98.5 F 84 18 137/79 H 97 01/26/17 04:11 01/26/17 08:50 01/26/17 08:50 01/26/17 04:11 01/26/17 08:50 Intake & Output 01/25/17 01/26/17 01/27/17 06:59 06:59 06:59 Intake Total 0 4190 Output Total 700 690 Balance -700 3500 Weight 94 kg 95.2 kg General appearance: PRESENT: no acute distress, cooperative, obese Head exam: PRESENT: normocephalic Eye exam: PRESENT: EOMI Mouth exam: PRESENT: moist, neck supple Neck exam: ABSENT: JVD Respiratory exam: PRESENT: clear to auscultation dimitrios. ABSENT: rhonchi, wheezes Cardiovascular exam: PRESENT: RRR. ABSENT: gallop GI/Abdominal exam: PRESENT: soft. ABSENT: distended, tenderness Extremities exam: ABSENT: pedal edema Neurological exam: PRESENT: alert, awake Skin exam: PRESENT: dry, warm. ABSENT: cyanosis Results Laboratory Results: 01/26/17 05:24 01/26/17 05:24 01/25/17 01/25/17 01/26/17 04:55 17:45 05:24 WBC 11.1 H RBC 3.22 L Hgb 9.3 L Hct 28.3 L MCV 88 MCH 28.7 MCHC 32.8 RDW 14.4 H Plt Count 205 Sodium 143.9 Potassium 4.2 D Chloride 109 H Carbon Dioxide 17 L Anion Gap 18 BUN 50 H Creatinine 5.53 H Est GFR ( Amer) 13 L Est GFR (Non-Af Amer) 10 L Glucose 99 Calcium 8.2 L Magnesium Iron 13.7 L TIBC 258 % Saturation 5 Ferritin 171.00 Vitamin B12 934.0 H Folate 16.40 01/26/17 05:24 WBC RBC Hgb Hct MCV MCH MCHC RDW Plt Count Sodium 140.2 Potassium 4.5 Chloride 111 H Carbon Dioxide 15 L Anion Gap 14 BUN 49 H Creatinine 5.26 H Est GFR ( Amer) 13 L Est GFR (Non-Af Amer) 11 L Glucose 128 H Calcium 7.9 L Magnesium 1.4 L Iron TIBC % Saturation Ferritin Vitamin B12 Folate 01/25/17 01/25/17 01/25/17 04:55 04:55 11:08 Creatine Kinase 202 H 217 H CK-MB (CK-2) 2.60 Troponin I < 0.012 01/25/17 11:08 Creatine Kinase CK-MB (CK-2) 2.67 Troponin I < 0.012 Impressions: Chest X-Ray 01/25/17 00:00 IMPRESSION: No acute consolidations or pleural effusions are identified. Other findings as noted above Renal Ultrasound 01/25/17 00:00 IMPRESSION: No significant renal abnormalities are identified. Other findings as noted above Assessment & Plan - Diagnosis (1) Altered mental status, unspecified Qualifiers: Altered mental status type: unspecified Qualified Code(s): R41.82 - Altered mental status, unspecified Is this a current diagnosis for this admission?: Yes (2) Hypotension due to drugs Is this a current diagnosis for this admission?: Yes (3) Acute renal failure Qualifiers: Acute renal failure type: unspecified Qualified Code(s): N17.9 - Acute kidney failure, unspecified (4) Hyperkalemia Is this a current diagnosis for this admission?: Yes (5) Leukocytosis Qualifiers: Leukocytosis type: unspecified Qualified Code(s): D72.829 - Elevated white blood cell count, unspecified Is this a current diagnosis for this admission?: Yes (6) Anemia Qualifiers: Anemia type: unspecified type Qualified Code(s): D64.9 - Anemia, unspecified Is this a current diagnosis for this admission?: Yes (7) Type II diabetes mellitus Qualifiers: Diabetes mellitus complication status: with unspecified complications Diabetes mellitus long-term insulin use: unspecified long-term insulin use status Qualified Code(s): E11.8 - Type 2 diabetes mellitus with unspecified complications; Z79.4 - joint terminal attack controller (current) use of insulin Is this a current diagnosis for this admission?: Yes (8) Hyperlipidemia Qualifiers: Hyperlipidemia type: unspecified Qualified Code(s): E78.5 - Hyperlipidemia, unspecified Is this a current diagnosis for this admission?: Yes (9) Peripheral neuropathy Qualifiers: Peripheral neuropathy type: polyneuropathy, unspecified Qualified Code(s): G62.9 - Polyneuropathy, unspecified Is this a current diagnosis for this admission?: Yes (10) Essential hypertension Is this a current diagnosis for this admission?: Yes (11) Bipolar disorder Qualifiers: Active/Remission status: remission status unspecified Qualified Code (s): F31.9 - Bipolar disorder, unspecified Is this a current diagnosis for this admission?: Yes (12) Chronic pain syndrome Is this a current diagnosis for this admission?: Yes - Time Time Spent with patient: 25-34 minutes - Plan Summary Plan Summary: WBC continues to trend down. Renal ultrasound showed no obstruction. We will continue hydration, monitor creatinine. Avoid nephrotoxic drugs. Begin diet. Continue supportive care. Out of bed. Physical therapy.
[2017-01-26] MEDS: AMLODIPINE BESYLATE 10 MG TABLET PO SCH (10:53)
[2017-01-26] MEDS: METOPROLOL TARTRATE 100 MG TABLET PO SCH ×2 (10:54→21:41)
[2017-01-26] MEDS ORDERED: LORAZEPAM 0.5 MG TABLET PO ONE (20:29)
[2017-01-26] MEDS: TRAZODONE HCL 50 MG TABLET PO SCH (21:41)
[2017-01-26] MEDS: INSULIN LISPRO 100 UNIT/ML 3 ML VIAL SUBCUT PRN (21:52)
[2017-01-27] MEDS ORDERED: LORAZEPAM 0.5 MG TABLET PO ONE (00:16)
[2017-01-27] MEDS ORDERED: LORAZEPAM 1 MG TABLET PO ONE (04:08)
[2017-01-27] MEDS: HEPARIN SOD (PORCINE) 5,000 UNIT/ML 1 ML SYRINGE SUBCUT SCH ×3 (06:00→22:36)
[2017-01-27] MEDS: NORMAL SALINE 1000 ML 1,000 ML IV PRN ×2 (06:07→13:45)
[2017-01-27] MEDS: IPRATROPIUM/ALBUTEROL 0.5-2.5 MG/3 ML AMPUL NEB SCH ×3 (07:42→23:49)
[2017-01-27 08:05] LABS: ANION GAP 13 (5-19); BLOOD UREA NITROGEN 45 mg/dL (7-20); CALCIUM 7.8 mg/dL (8.4-10.2); CARBON DIOXIDE 15 mmol/L (22-30); CHLORIDE 113 mmol/L (98-107); CREATININE RESULT 5.06 mg/dL (0.52-1.25); GLUCOSE 145 mg/dL (75-110); POTASSIUM 4.7 mmol/L (3.6-5.0); SODIUM 140.6 mmol/L (137-145)
[2017-01-27] MEDS: METOPROLOL TARTRATE 100 MG TABLET PO SCH ×2 (10:50→22:37)
[2017-01-27] MEDS: AMLODIPINE BESYLATE 10 MG TABLET PO SCH (10:51)
--- NOTE | 2017-01-27 11:38 | PDOC PROGRESS REPORT ---
Subjective Progress Note for:: 01/27/17 Subjective:: Patient reportedly w/ some agitation last night. There is restlessness, but patient reports she was having pain on his legs. No reported temperature spikes , nausea or vomiting, diarrhea, chills or fever. No respiratory distress reported as well. Patient reports some cough. Patient was trying to pull out Saeed catheter, an IV line last night. Ativan was given. Physical Exam Vital Signs: Temp Pulse Resp BP Pulse Ox 98.0 F 86 16 133/82 H 94 01/27/17 07:38 01/27/17 07:44 01/27/17 07:42 01/27/17 07:38 01/27/17 07:42 Intake & Output 01/26/17 01/27/17 01/28/17 06:59 06:59 06:59 Intake Total 4190 3010 Output Total 690 1900 Balance 3500 1110 Weight 95.2 kg 95.2 kg General appearance: PRESENT: no acute distress, cooperative, obese, other - Lethargic but arousable Head exam: PRESENT: normocephalic Eye exam: PRESENT: conjunctiva pale, EOMI Mouth exam: PRESENT: moist, neck supple Neck exam: ABSENT: JVD Respiratory exam: PRESENT: clear to auscultation dimitrios. ABSENT: rhonchi, wheezes Cardiovascular exam: PRESENT: RRR. ABSENT: gallop GI/Abdominal exam: PRESENT: hypoactive bowel sounds, soft. ABSENT: distended, tenderness Extremities exam: PRESENT: other - Trace pretibial edema Neurological exam: PRESENT: alert, awake, oriented to situation Skin exam: PRESENT: dry, warm. ABSENT: cyanosis Results Laboratory Results: 01/26/17 05:24 01/27/17 07:32 01/27/17 07:32 Sodium 140.6 Potassium 4.7 Chloride 113 H Carbon Dioxide 15 L Anion Gap 13 BUN 45 H Creatinine 5.06 H Est GFR ( Amer) 14 L Est GFR (Non-Af Amer) 12 L Glucose 145 H Calcium 7.8 L 01/25/17 04:15 Catheterized Urine Urine Culture - Final NO GROWTH 2 DAYS 01/25/17 01/25/17 01/25/17 04:55 04:55 11:08 Creatine Kinase 202 H 217 H CK-MB (CK-2) 2.60 Troponin I < 0.012 01/25/17 11:08 Creatine Kinase CK-MB (CK-2) 2.67 Troponin I < 0.012 Impressions: Chest X-Ray 01/25/17 00:00 IMPRESSION: No acute consolidations or pleural effusions are identified. Other findings as noted above Renal Ultrasound 01/25/17 00:00 IMPRESSION: No significant renal abnormalities are identified. Other findings as noted above Assessment & Plan - Diagnosis (1) Altered mental status, unspecified Qualifiers: Altered mental status type: unspecified Qualified Code(s): R41.82 - Altered mental status, unspecified Is this a current diagnosis for this admission?: Yes (2) Hypotension due to drugs Is this a current diagnosis for this admission?: Yes (3) Acute renal failure Qualifiers: Acute renal failure type: unspecified Qualified Code(s): N17.9 - Acute kidney failure, unspecified (4) Hyperkalemia Is this a current diagnosis for this admission?: Yes (5) Leukocytosis Qualifiers: Leukocytosis type: unspecified Qualified Code(s): D72.829 - Elevated white blood cell count, unspecified Is this a current diagnosis for this admission?: Yes (6) Anemia Qualifiers: Anemia type: unspecified type Qualified Code(s): D64.9 - Anemia, unspecified Is this a current diagnosis for this admission?: Yes (7) Type II diabetes mellitus Qualifiers: Diabetes mellitus complication status: with unspecified complications Diabetes mellitus senior care insulin use: unspecified him specialist insulin use status Qualified Code(s): E11.8 - Type 2 diabetes mellitus with unspecified complications; Z79.4 - inspector toys (current) use of insulin Is this a current diagnosis for this admission?: Yes (8) Hyperlipidemia Qualifiers: Hyperlipidemia type: unspecified Qualified Code(s): E78.5 - Hyperlipidemia, unspecified Is this a current diagnosis for this admission?: Yes (9) Peripheral neuropathy Qualifiers: Peripheral neuropathy type: polyneuropathy, unspecified Qualified Code(s): G62.9 - Polyneuropathy, unspecified Is this a current diagnosis for this admission?: Yes (10) Essential hypertension Is this a current diagnosis for this admission?: Yes (11) Bipolar disorder Qualifiers: Active/Remission status: remission status unspecified Qualified Code (s): F31.9 - Bipolar disorder, unspecified Is this a current diagnosis for this admission?: Yes (12) Chronic pain syndrome Is this a current diagnosis for this admission?: Yes - Time Time Spent with patient: 25-34 minutes - Plan Summary Plan Summary: We will decrease trazodone dose. Continue IV hydration, recheck creatinine. Seems to be trending down but slowly. We will consult nephrology for further evaluation. Obtain a follow-up chest x-ray for the coughing make sure there is no congestive changes.
[2017-01-27] MEDS ORDERED: DEXTROSE 5%-WATER 1000 ML 1,000 ML with SODIUM BICARBONATE 150 MEQ IV PRN ×2 (16:45)
[2017-01-27] MEDS: INSULIN LISPRO 100 UNIT/ML 3 ML VIAL SUBCUT PRN (16:55)
--- NOTE | 2017-01-27 17:13 | PDOC CONSULTATION ---
Consultation Consult Date: 01/27/17 Attending physician:: JESSICA KELSEY Consult reason:: I was asked by Dr. Ponce to do this patient because of acute renal failure. History of Present Illness Admission Date/PCP: 01/25/17 00:05 JORGE WILLIAMSON History of Present Illness: The patient is a 61-year-old -[place] gentleman with history of previous episode of acute kidney injury in October 2016 also with history of diabetes mellitus type II, hypertension, COPD, chronic pain with peripheral neuropathy who was admitted on 01/25/2017 because of altered mental status. The patient is started to have right shoulder pain and started to be taking some pain medications including [id number] Aleve and oxycodone. Reports stated that the patient lost track of homing oxycodone has been taking and from the pill count he approximately is taken 13 tablets of oxycodone 10 mg each over the last 24 hours prior to admission. The noted that the patient's mentation has been altered and called the EMS. Patient received Narcan given by the EMS and another dose when he was in the emergency room. Patient was then subsequently admitted. Patient was also hypotensive when he came in with blood pressure as low as 87/54. His initial K function shows a BUN of 47 creatinine of 5.08 with estimated GFR of 14. Back in October 2016 he had an episode of acute kidney injury where he presented with coffee-ground emesis, nausea and vomiting with BUN of 76 creatinine of 5.28. He was transferred to [facility]. According to the patient allegedly improve in terms of his kidney function and has never required dialysis. said that the patient saw the contracts director in [facility] and was told that his kidney function is improved. No records available at this time. Since admission the patient is being hydrated with normal saline. His blood pressure is improved. He is intake and output balance is positive at least 3.4 L as of this point. He is making some urine. Today his kidney function include a BUN of 45 and creatinine of 5.06 with estimated GFR of 14. He has been acidotic with his CO2 of 15. He initially came in with hyperkalemia with potassium of 5.9 which is improved to 4.7 at this point. Patient does not have any proteinuria and has some minimal hematuria on his urinalysis. He denies any other history of kidney disease. During this interview the patient is very lethargic although he does wake up and answers one question at time in between dozing off. He said he just feels tired. at bedside confirms that his mental state does not seem to have changed since admission. He denies any shortness of breath and complains of feeling sore over. He said he has some cough with some clear phlegm he denies any chest pains or abdominal pain. He denies any nausea or vomiting. Past Medical History Cardiac Medical History: Reports: Hyperlipidemia, Hypertension-primary Pulmonary Medical History: Reports: Chronic Obstructive Pulmonary Disease (COPD) Endocrine Medical History: Reports: Diabetes Mellitus Type 2 Complications of Diabetes: Reports: Autonomic Neuropathy Renal/ Medical History: Reports: Other - Episode of acute kidney injury in October 2016 Musculoskeltal Medical History: Reports: Arthritis, Other - Chronic pain Psychiatric Medical History: Reports: Bipolar Disorder, Depression Past Surgical History Past Surgical History: Reports: Orthopedic Surgery - left knee Social History Information Source: Patient, Relative Lives with: Spouse/Significant other Smoking Status: Never Smoker Frequency of Alcohol Use: None Hx Recreational Drug Use: No Drugs: None Hx Prescription Drug Abuse: Yes - Advance Directive Resuscitation Status: Full Code Family History Family History: Arthritis, DM, Hypertension Parental Family History Reviewed: Yes Children Family History Reviewed: Yes Sibling(s) Family History Reviewed.: Yes Medication/Allergy Home Medications: Amlodipine Besylate [Norvasc 10 mg Tablet] 10 mg PO DAILY 01/25/17 Cyclobenzaprine HCl [Flexeril 10 mg Tablet] 10 mg PO Q8 01/25/17 Ergocalciferol (Vitamin D2) [Vitamin D2] 50,000 unit PO Q7D 01/25/17 Gabapentin [Neurontin] 600 mg PO Q6 01/25/17 Glipizide [Glocotrol 10 Mg Tablet] 10 mg PO DAILY 01/25/17 Hydrochlorothiazide 25 mg PO DAILY 01/25/17 Lurasidone HCl [Latuda] 40 mg PO DAILY 01/25/17 Metformin HCl [Glucophage] 1,000 mg PO BID 01/25/17 Metoprolol Tartrate [Lopressor 100 mg Tablet] 100 mg PO Q12 01/25/17 Naproxen 500 mg PO BID 01/25/17 Oxycodone HCl/Acetaminophen [Percocet 10-325 Mg Tablet] 1 tab PO Q12 01/25/17 Sertraline HCl [Zoloft] 100 mg PO DAILY 01/25/17 Sertraline HCl [Zoloft] 100 mg PO DAILY 01/25/17 Trazodone HCl 150 mg PO QHS 01/25/17 Allergies/Adverse Reactions: lisinopril [Lisinopril] Allergy (Intermediate, Verified 10/19/16 12:50) Unknown reaction Review of Systems All systems: reviewed and no additional remarkable complaints except as stated Review of Systems: Constitutional: ABSENT: chills, fever(s), headache(s), weight gain, weight loss , feels tired Eyes: ABSENT: visual disturbances Ears: ABSENT: hearing changes Cardiovascular: ABSENT: chest pain, edema, orthropnea, palpitations, dyspnea on exertion Respiratory: ABSENT: dyspnea, hemoptysis, admits some cough with clear phlegm Gastrointestinal: ABSENT: abdominal pain, constipation, diarrhea, hematemesis, hematochezia, nausea, vomiting Genitourinary: ABSENT: dysuria, hematuria Musculoskeletal: ABSENT: joint swelling Integumentary: ABSENT: rash, wounds Neurological: ABSENT: abnormal gait, abnormal speech, confusion, dizziness, focal weakness, numbness, syncope, admits neuropathic pain in his legs Psychiatric: ABSENT: anxiety, depression Endocrine: ABSENT: cold intolerance, heat intolerance, polydipsia, polyuria Hematologic/Lymphatic: ABSENT: easy bleeding, easy bruising, lymphadenopathy Physical Exam Vital Signs: Temp Pulse Resp BP Pulse Ox 97.4 F 77 16 122/77 98 01/27/17 15:23 01/27/17 16:21 01/27/17 16:21 01/27/17 15:23 01/27/17 16:21 Intake & Output 01/26/17 01/27/17 01/28/17 06:59 06:59 06:59 Intake Total 4190 3010 480 Output Total 690 1900 500 Balance 3500 1110 -20 Weight 95.2 kg 95.2 kg Exam: General appearance: no acute distress, cooperative, well-developed, well- nourished, very somnolent, patient barely wakes up once or one question and then sleeps again Head exam: PRESENT: atraumatic, normocephalic Eye exam: PRESENT: Conjunctiva [place], EOMI, PERRLA. ABSENT: conjunctival injection, scleral icterus Mouth exam: PRESENT: moist, neck supple, tongue midline Neck exam: PRESENT: full ROM. ABSENT: carotid bruit, JVD, lymphadenopathy, thyromegaly Respiratory exam: PRESENT: clear to auscultation bilaterally. ABSENT: rales, rhonchi, stridor, wheezes Cardiovascular exam: PRESENT: RRR, +S1, +S2. ABSENT: systolic murmur Pulses: PRESENT: normal radial pulses, normal dorsalis pedis pulses GI/Abdominal exam: PRESENT: normal bowel sounds, soft. ABSENT: guarding, mass, tenderness Rectal exam: deferred Extremities exam: PRESENT: full ROM. ABSENT: calf tenderness, pedal edema Musculoskeletal: PRESENT: full ROM. ABSENT: deformity Neurological exam: PRESENT: alert, Awake, Oriented to person, Oriented to place , Oriented to time, reflexes normal, CN II-XII grossly intact. ABSENT: motor sensory deficit Psychiatric exam: PRESENT: appropriate affect, normal mood. ABSENT: homicidal ideation, suicidal ideation Skin exam: PRESENT: intact, dry, warm. ABSENT: rash Results Laboratory Results: 01/26/17 05:24 01/27/17 07:32 01/27/17 07:32 Sodium 140.6 Potassium 4.7 Chloride 113 H Carbon Dioxide 15 L Anion Gap 13 BUN 45 H Creatinine 5.06 H Est GFR ( Amer) 14 L Est GFR (Non-Af Amer) 12 L Glucose 145 H Calcium 7.8 L 01/25/17 04:15 Catheterized Urine Urine Culture - Final NO GROWTH 2 DAYS 01/25/17 01/25/17 01/25/17 04:55 04:55 11:08 Creatine Kinase 202 H 217 H CK-MB (CK-2) 2.60 Troponin I < 0.012 01/25/17 11:08 Creatine Kinase CK-MB (CK-2) 2.67 Troponin I < 0.012 Impressions: Chest X-Ray 01/25/17 00:00 IMPRESSION: No acute consolidations or pleural effusions are identified. Other findings as noted above Renal Ultrasound 01/25/17 00:00 IMPRESSION: No significant renal abnormalities are identified. Other findings as noted above Assessment & Plan - Diagnosis (1) Acute on chronic renal failure Qualifiers: Acute renal failure type: with acute tubular necrosis Is this a current diagnosis for this admission?: YesPlan: Patient is baseline kidney function is not really known. 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 His kidney function seems to be within normal limits about a year ago in 2016. So whether the patient has acute and chronic or just merely acute kidney injury is something to be determined remained in time. For his acute kidney injury this is most likely secondary to a combination of hypotension causing acute tubular necrosis and possibly with contribution of use of nonsteroidal anti-inflammatory agents. Patient is currently nonoliguric. He presented with hyperkalemia and severe and persistent metabolic acidosis. This could also be contributing to the patient's altered mental status apart from opiate intoxication. The patient did not really improve with just IV fluid hydration for the last 3 days. His mentation is only mildly improved according to the . I think the patient will benefit from acute renal replacement therapy in the form of acute hemodialysis due to this persistence acidosis, unimproved kidney function , and persistent altered mental status. I discussed the process of hemodialysis and the patient and his at bedside. Discussed with them the benefits of filtering his blood and probably helping his electrolytes and mental status. Also discussed risks including but not limited to bleeding, infection, hemodynamic instability including cardiac arrest on hemodialysis. Patient agreed to proceed. I have spoken to Dr. Kelsey regarding the plan and he agreed. I also spoke to Dr. Morales, vascular surgeon for placement of a trialysis catheter. Dr. Morales agreed to place the trialysis catheter tomorrow morning before noon. We will plan for the patient's for his hemodialysis tomorrow after trialysis catheter placement. We will need to continue to monitor the patient for the next few days or a week to see if the patient would only need an acute temporary dialysis versus chronic dialysis treatment. Complete plan discussed with patient and and they both agreed. I will order hepatitis panel and PPD just in case the patient needs chronic dialysis outpatient treatment. We will continue monitor the patient. (2) Acute tubular necrosis Is this a current diagnosis for this admission?: YesPlan: Due to hypotension. (3) Metabolic acidosis Is this a current diagnosis for this admission?: YesPlan: Dialysis would help this. Meanwhile I'm going to change his IV fluid to a bicarbonate drip with 150 mEq of sodium bicarbonate to run at 100 mL an hour. (4) Hypocalcemia Is this a current diagnosis for this admission?: YesPlan: Replace as necessary. (5) Altered mental status, unspecified Qualifiers: Altered mental status type: unspecified Qualified Code(s): R41.82 - Altered mental status, unspecified Is this a current diagnosis for this admission?: YesPlan: Due to opiate intoxication with contribution of acute kidney injury. (6) Anemia Qualifiers: Anemia type: unspecified type Qualified Code(s): D64.9 - Anemia, unspecified Is this a current diagnosis for this admission?: Yes (7) Chronic pain syndrome Is this a current diagnosis for this admission?: YesPlan: Due to his shoulder pain and peripheral neuropathy. (8) Essential hypertension Is this a current diagnosis for this admission?: YesPlan: Currently within acceptable limits. (9) Peripheral neuropathy Qualifiers: Peripheral neuropathy type: polyneuropathy, unspecified Qualified Code(s): G62.9 - Polyneuropathy, unspecified Is this a current diagnosis for this admission?: Yes (10) Type II diabetes mellitus Qualifiers: Diabetes mellitus complication status: with unspecified complications Diabetes mellitus long-term insulin use: unspecified long-term insulin use status Qualified Code(s): E11.8 - Type 2 diabetes mellitus with unspecified complications; Z79.4 - superintendent marine oil terminal (current) use of insulin Is this a current diagnosis for this admission?: Yes - Notes Notes: Thank you very much for this consultation. Plan discussed with Dr. Kelsey, the patient and his , and the nurse taking care of the patient. - Time Time Spent: Greater than 70 Minutes
[2017-01-27] MEDS ORDERED: CALCIUM GLUCONATE 1,000 MG in DEXTROSE 5%-WATER 50 ML IV ONE (17:14)
[2017-01-27] MEDS ORDERED: HEPARIN SOD (PORCINE) 1,000 UNIT/ML 10 ML VIAL IV PRN (17:35)
[2017-01-27] MEDS ORDERED: TUBERCULIN,PURIF.PROT.DERIV. 5 TU/0.1 ML TEST 1 ML VIAL ID ONE (18:00)
[2017-01-27] MEDS ORDERED: CALCIUM GLUCONATE 1000 MG/10 ML INJ IV ONE (18:30)
[2017-01-27] MEDS: TRAZODONE HCL 50 MG TABLET PO SCH (22:36)
[2017-01-28] MEDS: INSULIN LISPRO 100 UNIT/ML 3 ML VIAL SUBCUT PRN ×2 (00:06→23:04)
[2017-01-28] MEDS: HEPARIN SOD (PORCINE) 5,000 UNIT/ML 1 ML SYRINGE SUBCUT SCH ×3 (06:00→21:43)
[2017-01-28] MEDS: IPRATROPIUM/ALBUTEROL 0.5-2.5 MG/3 ML AMPUL NEB SCH ×3 (08:00→23:10)
[2017-01-28] MEDS: AMLODIPINE BESYLATE 10 MG TABLET PO SCH (10:00)
[2017-01-28] MEDS: METOPROLOL TARTRATE 100 MG TABLET PO SCH ×2 (10:00→21:42)
[2017-01-28] MEDS ORDERED: HEPARIN SOD (PORCINE) 1,000 UNIT/ML 10 ML VIAL ONE (16:38)
--- NOTE | 2017-01-28 16:41 | PROGRESS NOTE E ---
Progress Note NAME: LAKEISHA YATES : 1955 AGE: 61Y DATE: 01/28/2017 ROOM: 434 SUBJECTIVE: The patient denies any chest congestion. Still with some coughing, but not worse. No shortness of breath noted. Denies any chills or fever, although staff reports some low grade fever earlier. Patient tolerating oral intake well. Denies any diarrhea. He has a Saeed catheter. OBJECTIVE: VITAL SIGNS: Blood pressure 145/75, pulse 86, respirations 19, temperature 98.4 degrees Fahrenheit, room air oxygen saturation 93%. GENERAL: Patient is awake. He is not in acute distress. NECK: There is no jugular venous distention. LUNGS: Lung sounds are clear to auscultation anteriorly bilateral. HEART: Regular with no gallops. ABDOMEN: Soft, nontender. Bowel sounds were hypoactive. LOWER EXTREMITIES: Trace edema. SKIN: Mucosa and nail beds with no cyanosis. LABORATORY: Creatinine is 5.11. BUN of 42. Potassium of 3.9, sodium of 142. Hemoglobin 8.5, hematocrit 25.6. ASSESSMENT: 1. ALTERED MENTAL STATUS. 2. HYPOTENSION SECONDARY TO MEDICATIONS. 3. ACUTE RENAL FAILURE ON CHRONIC KIDNEY DISEASE. 4. HYPERKALEMIA. 5. LEUKOCYTOSIS. 6. ANEMIA OF CHRONIC DISEASE. 7. TYPE 2 DIABETES MELLITUS. 8. HYPERLIPIDEMIA. 9. PERIPHERAL NEUROPATHY. 10. ESSENTIAL HYPERTENSION. 11. BIPOLAR DISORDER. 12. CHRONIC PAIN SYNDROME. PLAN: We are going to decrease intravenous fluid. Send urine for culture. Nephrology was consulted and a dialysis catheter will be placed. Patient is going to undergo hemodialysis today. Likely patient has chronic renal failure. We will, therefore, put the IV fluid to KVO and stop hydration. We will continue to monitor hematocrit. Likely this is delusional. DICTATING PHYSICIAN: JESSICA SMITH M.D. [id number] PHY#: [id number] ID: [id number] JOB#: [id number] ACCT: [id number] cc: >
[2017-01-28] MEDS: TRAZODONE HCL 50 MG TABLET PO SCH (21:41)
[2017-01-28] MEDS: OXYCODONE-ACETAMINOPHEN 5-325 MG TABLET PO PRN (21:42)
[2017-01-28] MEDS ORDERED: DEXTROSE 5%-WATER 1000 ML 1,000 ML with SODIUM BICARBONATE 150 MEQ IV PRN ×2 (22:00)
[2017-01-28] MEDS: OXYCODONE HCL IR 5 MG TABLET PO PRN (23:00)
--- NOTE | 2017-01-28 23:49 | PROGRESS NOTE E ---
Progress Note NAME: LAKEISHA YATES : 1955 AGE: 61Y DATE: 01/28/2017 ROOM: 434 SUBJECTIVE: I am seeing the patient on his first dialysis treatment this afternoon. He looks more awake. He is actually clinically appearing to be better. He continues to make some urine output. He is able to communicate a little bit more coherently and appropriately today compared to yesterday. When I ask him about what happened prior to emergency room presentation, he told me that he has been taking Aleve. He said he has taken about 10 tablets in 3 days. When I asked him about oxycodone, he said he could have taken 4 tablets, but admits that he is not really sure about it. I also asked him if he remembered what happened when he had an episode of acute kidney failure in October 2016. He remembered that he did have kidney failure and was seeing a highway maintenance technician and was told that it improved but cannot tell me if his kidney function improved to normal. Currently, he is doing well on dialysis. He is tolerating procedure well. He is comfortable and currently not having any complaints. OBJECTIVE: VITAL SIGNS: At this time during dialysis blood pressure 136/84, heart rate of 78. Blood flow rate on dialysis of 250 mL per minute, dialysate flow rate of 500 mL per minute. His right femoral dialysis catheter is functioning well. HEENT: He has pale conjunctivae, anicteric sclerae. NECK: Supple. LUNGS: Clear with minimal occasional crackles but no wheezes, no rhonchi. HEART: Regular rate/rhythm. Positive S1, S2. No S3, S4. No murmurs. ABDOMEN: Obese, positive bowel sounds, soft, nontender. No rebound or guarding. No hepatosplenomegaly. EXTREMITIES: No edema. SKIN: No jaundice, cyanosis. LABORATORIES: BMP: Glucose 220, albumin 2.8, chloride of 109.75, potassium 3.91, sodium 142.22, CO2 of 18.88, creatinine 5.11, BUN 42.5, calcium 8.4, anion gap of 13.59. CBC: WBC of 8.7, hemoglobin of 8.5, hematocrit of 25.6, platelet count of 275,000. ASSESSMENT: 1. ACUTE KIDNEY INJURY WITHOUT KNOWN UNDERLYING CHRONIC KIDNEY DISEASE, LIKELY SECONDARY TO ACUTE TUBULAR NECROSIS SECONDARY TO INITIAL HYPOTENSION WITH A SIGNIFICANT CONTRIBUTION OF INTAKE OF NSAIDS IN THE FORM OF ALEVE. THE PATIENT DO NOT HAVE ANY PROTEINURIA WITH ONLY SMALL HEMATURIA ON PREVIOUS URINALYSIS. 2. SEVERE METABOLIC ACIDOSIS IS SLIGHTLY IMPROVED WITH SODIUM BICARBONATE DRIP WHICH I STARTED LAST NIGHT. 3. HYPOCALCEMIA, RESOLVED. 4. ANEMIA. 5. ALTERED MENTAL STATUS. MENTAL STATUS CURRENTLY ALMOST BACK TO NORMAL. 6. DIABETES MELLITUS TYPE 2. 7. PERIPHERAL NEUROPATHY. 8. CHRONIC PAIN SYNDROME WITH RIGHT SHOULDER PAIN. PLAN: We will dialyze today for 3-1/2 hours using his newly placed right femoral dialysis catheter. We will use 2 potassium baths, blood flow at 250 mL per minute, and dialysate flow of 500 mL per minute. We will do ultrafiltration for 2 liters only since the patient has had positive fluid balance for the last 3 or 4 days. We will not use any heparin. No Procrit at this point. I will discontinue the sodium bicarbonate drip at this time. Continue to monitor kidney function and urine output. Depending on how his kidney function responds to hemodialysis today will determine if he will need further hemodialysis treatment here while in the hospital or even chronically. I will not be available starting [facility], and Dr. Scott Collazo will be covering me. I will be back on Thursday. DICTATING PHYSICIAN: COSMO LI M.D. [id number] PHY#: [id number] ID: [id number] JOB#: [id number] ACCT: [id number] cc:COSMO LI M.D. > MTDD
[2017-01-29] MEDS: HEPARIN SOD (PORCINE) 5,000 UNIT/ML 1 ML SYRINGE SUBCUT SCH ×3 (05:30→22:17)
[2017-01-29] MEDS: OXYCODONE-ACETAMINOPHEN 5-325 MG TABLET PO PRN ×2 (05:38→19:40)
[2017-01-29 06:04] LABS: HEMATOCRIT 25.8 % (37.9-51.0); HEMOGLOBIN 8.6 g/dL (13.5-17.0); MEAN CORPUSCULAR HEMOGLOBIN 28.5 pg (27.0-33.4); MEAN CORPUSCULAR HGB CONC 33.3 g/dL (32.0-36.0); RED BLOOD COUNT 3.02 10^6/uL (4.35-5.55); RED CELL DISTRIBUTION WIDTH 14.2 % (11.5-14.0); WHITE BLOOD COUNT 8.5 10^3/uL (4.0-10.5)
[2017-01-29 06:10] LABS: MEAN CORPUSCULAR VOLUME 86 fl (80-97)
[2017-01-29 06:19] LABS: ANION GAP 13 (5-19); BLOOD UREA NITROGEN 27 mg/dL (7-20); CALCIUM 8.1 mg/dL (8.4-10.2); CARBON DIOXIDE 26 mmol/L (22-30); CHLORIDE 103 mmol/L (98-107); CREATININE RESULT 3.83 mg/dL (0.52-1.25); GLUCOSE 146 mg/dL (75-110); POTASSIUM 3.5 mmol/L (3.6-5.0); SODIUM 142.1 mmol/L (137-145)
[2017-01-29] MEDS: IPRATROPIUM/ALBUTEROL 0.5-2.5 MG/3 ML AMPUL NEB SCH ×3 (07:35→23:52)
[2017-01-29 08:01] LABS: ABSOLUTE EOSINOPHILS # (AUTO) 0.8 10^3/uL (0.0-0.6); ABSOLUTE LYMPHOCYTES (AUTO) 1.5 10^3/uL (0.5-4.7); ABSOLUTE NEUT (AUTO) 5.3 10^3/uL (1.7-8.2); BASOPHILS % (AUTO) 0.5 % (0-2); EOSINOPHILS % (AUTO) 9.7 % (0-6); HEMATOCRIT 25.6 % (37.9-51.0); HEMOGLOBIN 8.5 g/dL (13.5-17.0); HGB HCT DIFFERENCE -0.1; LYMPHOCYTES % (AUTO) 17.4 % (13-45); MEAN CORPUSCULAR HEMOGLOBIN 28.5 pg (27.0-33.4); MEAN CORPUSCULAR HGB CONC 33.2 g/dL (32.0-36.0); MEAN CORPUSCULAR VOLUME 86 fl (80-97); MONOCYTES % (AUTO) 11.6 % (3-13); RED BLOOD COUNT 2.99 10^6/uL (4.35-5.55); RED CELL DISTRIBUTION WIDTH 14.6 % (11.5-14.0); SEGMENTED NEUTROPHILS % (AUTO) 60.8 % (42-78); WHITE BLOOD COUNT 8.7 10^3/uL (4.0-10.5)
[2017-01-29] MEDS: METOPROLOL TARTRATE 100 MG TABLET PO SCH ×2 (10:14→22:16)
[2017-01-29] MEDS: AMLODIPINE BESYLATE 10 MG TABLET PO SCH (10:15)
[2017-01-29 10:39] LABS: ALBUMIN 2.8 g/dL (3.5-5.0); ANION GAP 13 (5-19); BLOOD UREA NITROGEN 43 mg/dL (7-20); CALCIUM 8.4 mg/dL (8.4-10.2); CARBON DIOXIDE 19 mmol/L (22-30); CHLORIDE 110 mmol/L (98-107); CREATININE RESULT 5.11 mg/dL (0.52-1.25); GLUCOSE 220 mg/dL (75-110); POTASSIUM 3.9 mmol/L (3.6-5.0); SODIUM 142.2 mmol/L (137-145)
[2017-01-29] MEDS: OXYCODONE HCL IR 5 MG TABLET PO PRN ×2 (10:51→22:16)
[2017-01-29] MEDS: INSULIN LISPRO 100 UNIT/ML 3 ML VIAL SUBCUT PRN ×3 (11:39→22:18)
--- NOTE | 2017-01-29 13:44 | PDOC PROGRESS REPORT ---
Subjective Progress Note for:: 01/29/17 Subjective:: Pt reports he is feeling better. Less malaise and fatigue. Able to think clearly. No agitation reported. Denies chills nor fever. Physical Exam Vital Signs: Temp Pulse Resp BP Pulse Ox 97.7 F 83 20 157/79 H 94 01/29/17 08:01 01/29/17 08:01 01/29/17 08:01 01/29/17 08:01 01/29/17 08:01 Intake & Output 01/28/17 01/29/17 01/30/17 06:59 06:59 06:59 Intake Total 2640 300 Output Total 1300 2800 Balance 1340 -2500 Weight 102.2 kg 101 kg General appearance: PRESENT: no acute distress, cooperative Head exam: PRESENT: normocephalic Eye exam: PRESENT: EOMI Mouth exam: PRESENT: moist, neck supple Neck exam: ABSENT: JVD Respiratory exam: PRESENT: clear to auscultation dimitrios Cardiovascular exam: PRESENT: RRR. ABSENT: gallop GI/Abdominal exam: PRESENT: soft. ABSENT: distended, tenderness Extremities exam: PRESENT: other - trace edema Neurological exam: PRESENT: alert, awake, oriented to situation Skin exam: PRESENT: dry, warm. ABSENT: cyanosis Results Laboratory Results: 01/29/17 05:30 01/29/17 05:30 01/28/17 01/28/17 01/29/17 07:35 07:35 05:30 WBC 8.7 RBC 2.99 L Hgb 8.5 L Hct 25.6 L MCV 86 MCH 28.5 MCHC 33.2 RDW 14.6 H Plt Count 275 Seg Neutrophils % 60.8 Lymphocytes % 17.4 Monocytes % 11.6 Eosinophils % 9.7 H Basophils % 0.5 Absolute Neutrophils 5.3 Absolute Lymphocytes 1.5 Absolute Monocytes 1.0 Absolute Eosinophils 0.8 H Absolute Basophils 0.0 Sodium 142.2 142.1 Potassium 3.9 3.5 L Chloride 110 H 103 Carbon Dioxide 19 L 26 Anion Gap 13 13 BUN 43 H 27 H Creatinine 5.11 H 3.83 H Est GFR ( Amer) 14 L 19 L Est GFR (Non-Af Amer) 11 L 16 L Glucose 220 H 146 H Calcium 8.4 8.1 L Albumin 2.8 L 01/29/17 05:30 WBC 8.5 RBC 3.02 L Hgb 8.6 L Hct 25.8 L MCV 86 MCH 28.5 MCHC 33.3 RDW 14.2 H Plt Count 270 Seg Neutrophils % Lymphocytes % Monocytes % Eosinophils % Basophils % Absolute Neutrophils Absolute Lymphocytes Absolute Monocytes Absolute Eosinophils Absolute Basophils Sodium Potassium Chloride Carbon Dioxide Anion Gap BUN Creatinine Est GFR ( Amer) Est GFR (Non-Af Amer) Glucose Calcium Albumin 01/25/17 01/25/17 01/25/17 04:55 04:55 11:08 Creatine Kinase 202 H 217 H CK-MB (CK-2) 2.60 Troponin I < 0.012 01/25/17 11:08 Creatine Kinase CK-MB (CK-2) 2.67 Troponin I < 0.012 Impressions: Chest X-Ray 01/25/17 00:00 IMPRESSION: No acute consolidations or pleural effusions are identified. Other findings as noted above Renal Ultrasound 01/25/17 00:00 IMPRESSION: No significant renal abnormalities are identified. Other findings as noted above Assessment & Plan - Diagnosis (1) Altered mental status, unspecified Qualifiers: Altered mental status type: unspecified Qualified Code(s): R41.82 - Altered mental status, unspecified Is this a current diagnosis for this admission?: Yes (2) Hypotension due to drugs Is this a current diagnosis for this admission?: Yes (3) Acute renal failure Qualifiers: Acute renal failure type: unspecified Qualified Code(s): N17.9 - Acute kidney failure, unspecified (4) Hyperkalemia Is this a current diagnosis for this admission?: Yes (5) Leukocytosis Qualifiers: Leukocytosis type: unspecified Qualified Code(s): D72.829 - Elevated white blood cell count, unspecified Is this a current diagnosis for this admission?: Yes (6) Anemia Qualifiers: Anemia type: unspecified type Qualified Code(s): D64.9 - Anemia, unspecified Is this a current diagnosis for this admission?: Yes (7) Type II diabetes mellitus Qualifiers: Diabetes mellitus complication status: with unspecified complications Diabetes mellitus prison insulin use: unspecified prison insulin use status Qualified Code(s): E11.8 - Type 2 diabetes mellitus with unspecified complications; Z79.4 - assisted (current) use of insulin Is this a current diagnosis for this admission?: Yes (8) Hyperlipidemia Qualifiers: Hyperlipidemia type: unspecified Qualified Code(s): E78.5 - Hyperlipidemia, unspecified Is this a current diagnosis for this admission?: Yes (9) Peripheral neuropathy Qualifiers: Peripheral neuropathy type: polyneuropathy, unspecified Qualified Code(s): G62.9 - Polyneuropathy, unspecified Is this a current diagnosis for this admission?: Yes (10) Essential hypertension Is this a current diagnosis for this admission?: Yes (11) Bipolar disorder Qualifiers: Active/Remission status: remission status unspecified Qualified Code (s): F31.9 - Bipolar disorder, unspecified Is this a current diagnosis for this admission?: Yes (12) Chronic pain syndrome Is this a current diagnosis for this admission?: Yes - Time Time Spent with patient: 15-24 minutes - Plan Summary Plan Summary: [facility] HD per nephrology. Consult D/C business planner for OP HD.
[2017-01-29] MEDS ORDERED: POTASSIUM CHLORIDE 10 MEQ TABLET.SA PO ONE (13:50)
[2017-01-29 14:20] LABS: APPEARANCE,URINE CLEAR; BILIRUBIN,URINE NEGATIVE (NEGATIVE); GLUCOSE, URINE >=500 mg/dL (NEGATIVE); KETONES,URINE NEGATIVE (NEGATIVE); LEUKOCYTE ESTERASE,URINE NEGATIVE (NEGATIVE); NITRITE,URINE NEGATIVE (NEGATIVE); PROTEIN,URINE NEGATIVE (NEGATIVE); URINE SPECIFIC GRAVITY 1.005; UROBILINOGEN,URINE NEGATIVE mg/dL (<2.0)
--- NOTE | 2017-01-29 15:43 | Operative Report ---
Operative Report DATE OF SURGERY: 01/28/17 PREOPERATIVE DIAGNOSIS: Acute renal failure. POSTOPERATIVE DIAGNOSIS: Acute renal failure OPERATION: 1. ultrasound evaluation of the right femoral vein. 2. Real-time access in the right femoral vein. 3. Insertion of temporary hemodialysis cath dialysis catheter via real-time access in the right femoral vein. SURGEON: [place] [place] D[employer]NER CUTTER: None ANESTHESIA: Local TISSUE REMOVED OR ALTERED: Applicable. COMPLICATIONS: None ESTIMATED BLOOD LOSS: 5 mL. INTRAOPERATIVE FINDINGS: Of a satisfactory right femoral vein, adequate to support catheter. Satisfactory and safe axis, good position of catheter. Easy egress of blood and increase of heparinized solution through both ports. PROCEDURE: After obtaining informed consent, the patient was positioned supine at bedside. The right groin and adjacent areas] were prepared with chlorhexidine and draped out with sterile linen. After the universal timeout the procedure commenced. A steriley sheathed ultrasound probe was used to evaluate the right femoral vein. Local anesthesia was infiltrated adjacent to the probe. Access into the left femoral was accomplished using a micropuncture needle followed, by micropuncture wire and then with a micropuncture catheter. This was followed by introduction of a 0.035 guidewire, the skin opening was enlarged slightly, serially larger dilators were now placed followed by introduction of a triaysis catheter. All of these transitions were smooth. Each lumen was aspirated of blood and irrigated with heparinized solution. The catheter was now sutured to the skin using 3-0 nylon. A Bio A patch was now applied, followed by sterile dressings. Caps were placed on the end of the each of the lumens. The procedure concluded. Copies dictated operative report to Dr. Sunny Morales MD.
[2017-01-29] MEDS ORDERED: 1/2 NORMAL SALINE 1,000 ML IV PRN (20:17)
--- NOTE | 2017-01-29 20:20 | PDOC PROGRESS REPORT ---
Subjective Progress Note for:: 01/29/17 Subjective:: I am covering for Dr Thacker. Chart reviewed.Discussions done with treating RN Maryann. Patient feeling better. Denies chest pains, dyspnea. Making good urine. Aware of surroundings. Physical Exam Vital Signs: Temp Pulse Resp BP Pulse Ox 98.0 F 74 20 165/94 H 96 01/29/17 16:04 01/29/17 16:04 01/29/17 16:04 01/29/17 16:04 01/29/17 16:04 Intake & Output 01/28/17 01/29/17 01/30/17 06:59 06:59 06:59 Intake Total 2640 300 570 Output Total 1300 2800 630 Balance 1340 -2500 -60 Weight 102.2 kg 101 kg General appearance: PRESENT: no acute distress Respiratory exam: PRESENT: clear to auscultation dimitrios. ABSENT: crackles, rales, rhonchi Cardiovascular exam: PRESENT: +S1, +S2, systolic murmur Extremities exam: ABSENT: pedal edema Results Laboratory Results: 01/29/17 05:30 01/29/17 05:30 01/28/17 01/28/17 01/28/17 07:35 07:35 13:12 WBC 8.7 RBC 2.99 L Hgb 8.5 L Hct 25.6 L MCV 86 MCH 28.5 MCHC 33.2 RDW 14.6 H Plt Count 275 Seg Neutrophils % 60.8 Lymphocytes % 17.4 Monocytes % 11.6 Eosinophils % 9.7 H Basophils % 0.5 Absolute Neutrophils 5.3 Absolute Lymphocytes 1.5 Absolute Monocytes 1.0 Absolute Eosinophils 0.8 H Absolute Basophils 0.0 Sodium 142.2 Potassium 3.9 Chloride 110 H Carbon Dioxide 19 L Anion Gap 13 BUN 43 H Creatinine 5.11 H Est GFR ( Amer) 14 L Est GFR (Non-Af Amer) 11 L Glucose 220 H Calcium 8.4 Albumin 2.8 L Urine Color STRAW Urine Appearance CLEAR Urine pH 5.0 Ur Specific [place] 1.005 Urine Protein NEGATIVE Urine Glucose (UA) >=500 H Urine Ketones NEGATIVE Urine Blood MODERATE H Urine Nitrite NEGATIVE Ur Leukocyte Esterase NEGATIVE Urine WBC (Auto) 3 Urine RBC (Auto) 14 01/29/17 01/29/17 05:30 05:30 WBC 8.5 RBC 3.02 L Hgb 8.6 L Hct 25.8 L MCV 86 MCH 28.5 MCHC 33.3 RDW 14.2 H Plt Count 270 Seg Neutrophils % Lymphocytes % Monocytes % Eosinophils % Basophils % Absolute Neutrophils Absolute Lymphocytes Absolute Monocytes Absolute Eosinophils Absolute Basophils Sodium 142.1 Potassium 3.5 L Chloride 103 Carbon Dioxide 26 Anion Gap 13 BUN 27 H Creatinine 3.83 H Est GFR ( Amer) 19 L Est GFR (Non-Af Amer) 16 L Glucose 146 H Calcium 8.1 L Albumin Urine Color Urine Appearance Urine pH Ur Specific [place] Urine Protein Urine Glucose (UA) Urine Ketones Urine Blood Urine Nitrite Ur Leukocyte Esterase Urine WBC (Auto) Urine RBC (Auto) 01/25/17 01/25/17 01/25/17 04:55 04:55 11:08 Creatine Kinase 202 H 217 H CK-MB (CK-2) 2.60 Troponin I < 0.012 01/25/17 11:08 Creatine Kinase CK-MB (CK-2) 2.67 Troponin I < 0.012 Impressions: Chest X-Ray 01/25/17 00:00 IMPRESSION: No acute consolidations or pleural effusions are identified. Other findings as noted above Renal Ultrasound 01/25/17 00:00 IMPRESSION: No significant renal abnormalities are identified. Other findings as noted above Assessment & Plan - Diagnosis (1) Acute on chronic renal failure Qualifiers: Acute renal failure type: with acute tubular necrosis Is this a current diagnosis for this admission?: YesPlan: Patient still got active renal failure even though nonoliguric still not get back to baseline. Given the weekend I am going and continue on dialysis until and see how he does over the next few days. He still acute kidney injury on top of CKD and long-term dialysis status is still unsure.Dr. Thacker will be back on Thursday to make a decision whether he needs continuing dialysis altogether or if he can be followed as an outpatient. (2) Altered mental status, unspecified Qualifiers: Altered mental status type: unspecified Qualified Code(s): R41.82 - Altered mental status, unspecified Is this a current diagnosis for this admission?: Yes (3) Anemia Qualifiers: Anemia type: unspecified type Qualified Code(s): D64.9 - Anemia, unspecified Is this a current diagnosis for this admission?: YesPlan: Has iron deficiency. Ordering IV iron. Later will adjust erythropoietin if he continues to be either on hemodialysis or if needed as an outpatient. (4) Metabolic acidosis Is this a current diagnosis for this admission?: Yes
[2017-01-29] MEDS: TRAZODONE HCL 50 MG TABLET PO SCH (22:17)
[2017-01-30] MEDS: OXYCODONE-ACETAMINOPHEN 5-325 MG TABLET PO PRN ×2 (02:46→13:53)
[2017-01-30] MEDS: HEPARIN SOD (PORCINE) 5,000 UNIT/ML 1 ML SYRINGE SUBCUT SCH ×3 (05:57→21:24)
[2017-01-30 06:59] LABS: ANION GAP 11 (5-19); BLOOD UREA NITROGEN 30 mg/dL (7-20); CALCIUM 8.5 mg/dL (8.4-10.2); CARBON DIOXIDE 26 mmol/L (22-30); CHLORIDE 102 mmol/L (98-107); CREATININE RESULT 4.09 mg/dL (0.52-1.25); GLUCOSE 165 mg/dL (75-110); POTASSIUM 3.9 mmol/L (3.6-5.0); SODIUM 138.9 mmol/L (137-145)
[2017-01-30] MEDS: IPRATROPIUM/ALBUTEROL 0.5-2.5 MG/3 ML AMPUL NEB SCH ×3 (08:18→23:58)
--- NOTE | 2017-01-30 08:43 | PDOC PROGRESS REPORT ---
Subjective Progress Note for:: 01/30/17 Subjective:: Pt reports he continue to feel better. Less malaise and fatigue. Able to think clearly. No agitation reported. Denies chills nor fever. No pain or discomfort. Physical Exam Vital Signs: Temp Pulse Resp BP Pulse Ox 97.9 F 74 18 145/77 H 95 01/30/17 05:59 01/30/17 08:25 01/30/17 08:25 01/30/17 05:59 01/30/17 08:25 Intake & Output 01/29/17 01/30/17 01/31/17 06:59 06:59 06:59 Intake Total 300 1700 Output Total 2800 1630 Balance -2500 70 Weight 101 kg 99.6 kg General appearance: PRESENT: no acute distress, cooperative Head exam: PRESENT: normocephalic Eye exam: PRESENT: conjunctiva pale, EOMI Mouth exam: PRESENT: moist, neck supple Neck exam: ABSENT: JVD Respiratory exam: PRESENT: clear to auscultation dimitrios. ABSENT: rhonchi, wheezes Cardiovascular exam: PRESENT: RRR. ABSENT: gallop GI/Abdominal exam: PRESENT: soft. ABSENT: tenderness Extremities exam: PRESENT: other - trace pre-tibial edema Neurological exam: PRESENT: alert, awake, oriented to situation Skin exam: PRESENT: dry, warm. ABSENT: cyanosis Results Laboratory Results: 01/29/17 05:30 01/30/17 06:10 01/28/17 01/28/17 01/28/17 07:35 07:35 13:12 WBC 8.7 RBC 2.99 L Hgb 8.5 L Hct 25.6 L MCV 86 MCH 28.5 MCHC 33.2 RDW 14.6 H Plt Count 275 Seg Neutrophils % 60.8 Lymphocytes % 17.4 Monocytes % 11.6 Eosinophils % 9.7 H Basophils % 0.5 Absolute Neutrophils 5.3 Absolute Lymphocytes 1.5 Absolute Monocytes 1.0 Absolute Eosinophils 0.8 H Absolute Basophils 0.0 Sodium 142.2 Potassium 3.9 Chloride 110 H Carbon Dioxide 19 L Anion Gap 13 BUN 43 H Creatinine 5.11 H Est GFR ( Amer) 14 L Est GFR (Non-Af Amer) 11 L Glucose 220 H Calcium 8.4 Albumin 2.8 L Urine Color STRAW Urine Appearance CLEAR Urine pH 5.0 Ur Specific [place] 1.005 Urine Protein NEGATIVE Urine Glucose (UA) >=500 H Urine Ketones NEGATIVE Urine Blood MODERATE H Urine Nitrite NEGATIVE Ur Leukocyte Esterase NEGATIVE Urine WBC (Auto) 3 Urine RBC (Auto) 01/30/17 06:10 WBC RBC Hgb Hct MCV MCH MCHC RDW Plt Count Seg Neutrophils % Lymphocytes % Monocytes % Eosinophils % Basophils % Absolute Neutrophils Absolute Lymphocytes Absolute Monocytes Absolute Eosinophils Absolute Basophils Sodium 138.9 Potassium 3.9 Chloride 102 Carbon Dioxide 26 Anion Gap 11 BUN 30 H Creatinine 4.09 H Est GFR ( Amer) 18 L Est GFR (Non-Af Amer) 15 L Glucose 165 H Calcium 8.5 Albumin Urine Color Urine Appearance Urine pH Ur Specific [place] Urine Protein Urine Glucose (UA) Urine Ketones Urine Blood Urine Nitrite Ur Leukocyte Esterase Urine WBC (Auto) Urine RBC (Auto) 01/25/17 01/25/17 01/25/17 04:55 04:55 11:08 Creatine Kinase 202 H 217 H CK-MB (CK-2) 2.60 Troponin I < 0.012 01/25/17 11:08 Creatine Kinase CK-MB (CK-2) 2.67 Troponin I < 0.012 Impressions: Chest X-Ray 01/25/17 00:00 IMPRESSION: No acute consolidations or pleural effusions are identified. Other findings as noted above Renal Ultrasound 01/25/17 00:00 IMPRESSION: No significant renal abnormalities are identified. Other findings as noted above Assessment & Plan - Diagnosis (1) Altered mental status, unspecified Qualifiers: Altered mental status type: unspecified Qualified Code(s): R41.82 - Altered mental status, unspecified Is this a current diagnosis for this admission?: Yes (2) Hypotension due to drugs Is this a current diagnosis for this admission?: Yes (3) Acute renal failure Qualifiers: Acute renal failure type: unspecified Qualified Code(s): N17.9 - Acute kidney failure, unspecified (4) Hyperkalemia Is this a current diagnosis for this admission?: Yes (5) Leukocytosis Qualifiers: Leukocytosis type: unspecified Qualified Code(s): D72.829 - Elevated white blood cell count, unspecified Is this a current diagnosis for this admission?: Yes (6) Anemia Qualifiers: Anemia type: unspecified type Qualified Code(s): D64.9 - Anemia, unspecified Is this a current diagnosis for this admission?: Yes (7) Type II diabetes mellitus Qualifiers: Diabetes mellitus complication status: with unspecified complications Diabetes mellitus shelter insulin use: unspecified statistical reporting analyst insulin use status Qualified Code(s): E11.8 - Type 2 diabetes mellitus with unspecified complications; Z79.4 - home aid (current) use of insulin Is this a current diagnosis for this admission?: Yes (8) Hyperlipidemia Qualifiers: Hyperlipidemia type: unspecified Qualified Code(s): E78.5 - Hyperlipidemia, unspecified Is this a current diagnosis for this admission?: Yes (9) Peripheral neuropathy Qualifiers: Peripheral neuropathy type: polyneuropathy, unspecified Qualified Code(s): G62.9 - Polyneuropathy, unspecified Is this a current diagnosis for this admission?: Yes (10) Essential hypertension Is this a current diagnosis for this admission?: Yes (11) Bipolar disorder Qualifiers: Active/Remission status: remission status unspecified Qualified Code (s): F31.9 - Bipolar disorder, unspecified Is this a current diagnosis for this admission?: Yes (12) Chronic pain syndrome Is this a current diagnosis for this admission?: Yes - Time Time Spent with patient: Less than 15 minutes - Plan Summary Plan Summary: Cont. current management and supportive care. D/C kit planner to arrange for out- patient HD.
[2017-01-30 09:06] LABS: HEMATOCRIT 25.8 % (37.9-51.0); HEMOGLOBIN 8.8 g/dL (13.5-17.0); HGB HCT DIFFERENCE 0.6; MEAN CORPUSCULAR HEMOGLOBIN 28.7 pg (27.0-33.4); MEAN CORPUSCULAR HGB CONC 34.1 g/dL (32.0-36.0); MEAN CORPUSCULAR VOLUME 84 fl (80-97); RED BLOOD COUNT 3.07 10^6/uL (4.35-5.55); RED CELL DISTRIBUTION WIDTH 14.2 % (11.5-14.0); WHITE BLOOD COUNT 8.4 10^3/uL (4.0-10.5)
[2017-01-30] MEDS ORDERED: HEPARIN SOD (PORCINE) 1,000 UNIT/ML 10 ML VIAL IV PRN (10:18)
[2017-01-30] MEDS: OXYCODONE HCL IR 5 MG TABLET PO PRN (12:08)
[2017-01-30] MEDS: AMLODIPINE BESYLATE 10 MG TABLET PO SCH (13:52)
[2017-01-30] MEDS: METOPROLOL TARTRATE 100 MG TABLET PO SCH ×2 (13:53→21:25)
[2017-01-30] MEDS ORDERED: FERUMOXYTOL 510 MG in NORMAL SALINE 100 ML IV ONE (14:00)
--- NOTE | 2017-01-30 17:15 | PDOC PROGRESS REPORT ---
Subjective Progress Note for:: 01/30/17 Subjective:: I am covering for Dr. Thacker. Patient was seen on dialysis. Patient is less confused and more oriented 2. He denies any history of headaches no estimate chest pain shortness of breath. Dialysis orders were discussed with the treating nurse. Physical Exam Vital Signs: Temp Pulse Resp BP Pulse Ox 97.7 F 67 18 164/87 H 96 01/30/17 07:38 01/30/17 15:54 01/30/17 15:54 01/30/17 07:38 01/30/17 15:54 Intake & Output 01/29/17 01/30/17 01/31/17 06:59 06:59 06:59 Intake Total 300 1700 Output Total 2800 1630 Balance -2500 70 Weight 101 kg 99.6 kg General appearance: PRESENT: no acute distress Respiratory exam: PRESENT: clear to auscultation dimitrios. ABSENT: crackles, rhonchi Cardiovascular exam: PRESENT: +S1, +S2, systolic murmur GI/Abdominal exam: PRESENT: normal bowel sounds, soft. ABSENT: distended, organomegaly, tenderness Extremities exam: ABSENT: pedal edema Neurological exam: PRESENT: alert, awake, oriented to person, oriented to place Skin exam: ABSENT: erythema, mottled, rash Results Laboratory Results: 01/30/17 08:20 01/30/17 06:10 01/30/17 01/30/17 06:10 08:20 WBC 8.4 RBC 3.07 L Hgb 8.8 L Hct 25.8 L MCV 84 MCH 28.7 MCHC 34.1 RDW 14.2 H Plt Count 281 Sodium 138.9 Potassium 3.9 Chloride 102 Carbon Dioxide 26 Anion Gap 11 BUN 30 H Creatinine 4.09 H Est GFR ( Amer) 18 L Est GFR (Non-Af Amer) 15 L Glucose 165 H Calcium 8.5 01/28/17 13:12 Clean Catch Midstream Urine Culture - Final NO GROWTH 2 DAYS 01/25/17 01/25/17 01/25/17 04:55 04:55 11:08 Creatine Kinase 202 H 217 H CK-MB (CK-2) 2.60 Troponin I < 0.012 01/25/17 11:08 Creatine Kinase CK-MB (CK-2) 2.67 Troponin I < 0.012 Impressions: Chest X-Ray 01/25/17 00:00 IMPRESSION: No acute consolidations or pleural effusions are identified. Other findings as noted above Renal Ultrasound 01/25/17 00:00 IMPRESSION: No significant renal abnormalities are identified. Other findings as noted above Assessment & Plan - Diagnosis (1) Acute on chronic renal failure Qualifiers: Acute renal failure type: with acute tubular necrosis Is this a current diagnosis for this admission?: YesPlan: Patient still got active renal failure even though nonoliguric still not get back to baseline. Given the weekend I am going and continue on dialysis until and see how he does over the next few days. He still acute kidney injury on top of CKD and long-term dialysis status is still unsure.Dr. Thacker will be back on Thursday to make a decision whether he needs continuing dialysis altogether he can be followed as an outpatient. (2) Altered mental status, unspecified Qualifiers: Altered mental status type: unspecified Qualified Code(s): R41.82 - Altered mental status, unspecified Is this a current diagnosis for this admission?: YesPlan: Improving. Continue present management. (3) Anemia Qualifiers: Anemia type: unspecified type Qualified Code(s): D64.9 - Anemia, unspecified Is this a current diagnosis for this admission?: YesPlan: Has iron deficiency. Ordering IV iron. Later will adjust erythropoietin if he continues to be either on hemodialysis or if needed as an outpatient. (4) Metabolic acidosis Is this a current diagnosis for this admission?: YesPlan: Resolved with dialysis.Discontinue bicarb drip.
[2017-01-30] MEDS: TRAZODONE HCL 50 MG TABLET PO SCH (21:25)
[2017-01-30] MEDS: INSULIN LISPRO 100 UNIT/ML 3 ML VIAL SUBCUT PRN (21:28)
[2017-01-31] MEDS: OXYCODONE-ACETAMINOPHEN 5-325 MG TABLET PO PRN ×2 (00:16→10:33)
[2017-01-31] MEDS: OXYCODONE HCL IR 5 MG TABLET PO PRN ×3 (03:33→22:10)
[2017-01-31] MEDS: HEPARIN SOD (PORCINE) 5,000 UNIT/ML 1 ML SYRINGE SUBCUT SCH ×3 (06:07→22:09)
[2017-01-31] MEDS: IPRATROPIUM/ALBUTEROL 0.5-2.5 MG/3 ML AMPUL NEB SCH ×2 (08:04→16:12)
--- NOTE | 2017-01-31 08:32 | PDOC PROGRESS REPORT ---
Subjective Progress Note for:: 01/31/17 Subjective:: Pt reports he continue to feel better but has shoulder pain on L today. No CP or SOB. Has chroic pain on L shoulder joint for a long time. Continues to have less malaise and fatigue. Able to think clearly. No agitation reported. Denies chills nor fever. Physical Exam Vital Signs: Temp Pulse Resp BP Pulse Ox 98.4 F 74 18 170/78 H 95 01/31/17 03:33 01/31/17 07:00 01/31/17 03:33 01/31/17 03:33 01/31/17 03:33 Intake & Output 01/30/17 01/31/17 02/01/17 06:59 06:59 06:59 Intake Total 1700 1196 Output Total 1630 1770 Balance 70 -574 Weight 99.6 kg 100.2 kg General appearance: PRESENT: no acute distress, cooperative Head exam: PRESENT: normocephalic Eye exam: PRESENT: conjunctiva pale, EOMI Mouth exam: PRESENT: moist, neck supple Neck exam: ABSENT: JVD Respiratory exam: PRESENT: clear to auscultation dimitrios. ABSENT: rhonchi, wheezes Cardiovascular exam: PRESENT: RRR. ABSENT: gallop GI/Abdominal exam: PRESENT: hypoactive bowel sounds, soft. ABSENT: distended Extremities exam: PRESENT: other - trace edema. Neurological exam: PRESENT: alert, awake, oriented to person, oriented to place , oriented to time, oriented to situation Skin exam: PRESENT: dry, warm. ABSENT: cyanosis Results Laboratory Results: 01/30/17 08:20 01/30/17 06:10 01/30/17 01/30/17 08:20 20:52 WBC 8.4 RBC 3.07 L Hgb 8.8 L Hct 25.8 L MCV 84 MCH 28.7 MCHC 34.1 RDW 14.2 H Plt Count 281 Stool Occult Blood NEGATIVE 01/28/17 13:12 Clean Catch Midstream Urine Culture - Final NO GROWTH 2 DAYS 01/25/17 01/25/17 01/25/17 04:55 04:55 11:08 Creatine Kinase 202 H 217 H CK-MB (CK-2) 2.60 Troponin I < 0.012 01/25/17 11:08 Creatine Kinase CK-MB (CK-2) 2.67 Troponin I < 0.012 Impressions: Chest X-Ray 01/25/17 00:00 IMPRESSION: No acute consolidations or pleural effusions are identified. Other findings as noted above Renal Ultrasound 01/25/17 00:00 IMPRESSION: No significant renal abnormalities are identified. Other findings as noted above Assessment & Plan - Diagnosis (1) Altered mental status, unspecified Qualifiers: Altered mental status type: unspecified Qualified Code(s): R41.82 - Altered mental status, unspecified Is this a current diagnosis for this admission?: Yes (2) Hypotension due to drugs Is this a current diagnosis for this admission?: Yes (3) Acute renal failure Qualifiers: Acute renal failure type: unspecified Qualified Code(s): N17.9 - Acute kidney failure, unspecified (4) Hyperkalemia Is this a current diagnosis for this admission?: Yes (5) Leukocytosis Qualifiers: Leukocytosis type: unspecified Qualified Code(s): D72.829 - Elevated white blood cell count, unspecified Is this a current diagnosis for this admission?: Yes (6) Anemia Qualifiers: Anemia type: unspecified type Qualified Code(s): D64.9 - Anemia, unspecified Is this a current diagnosis for this admission?: Yes (7) Type II diabetes mellitus Qualifiers: Diabetes mellitus complication status: with unspecified complications Diabetes mellitus superintendent marine oil terminal insulin use: unspecified superintendent marine oil terminal insulin use status Qualified Code(s): E11.8 - Type 2 diabetes mellitus with unspecified complications; Z79.4 - terminal worker (current) use of insulin Is this a current diagnosis for this admission?: Yes (8) Hyperlipidemia Qualifiers: Hyperlipidemia type: unspecified Qualified Code(s): E78.5 - Hyperlipidemia, unspecified Is this a current diagnosis for this admission?: Yes (9) Peripheral neuropathy Qualifiers: Peripheral neuropathy type: polyneuropathy, unspecified Qualified Code(s): G62.9 - Polyneuropathy, unspecified Is this a current diagnosis for this admission?: Yes (10) Essential hypertension Is this a current diagnosis for this admission?: Yes (11) Bipolar disorder Qualifiers: Active/Remission status: remission status unspecified Qualified Code (s): F31.9 - Bipolar disorder, unspecified Is this a current diagnosis for this admission?: Yes (12) Chronic pain syndrome Is this a current diagnosis for this admission?: Yes - Time Time Spent with patient: 25-34 minutes - Plan Summary Plan Summary: Begin hydralazine for BP control. Resume home flexeril and gabapentin at lower dose. Continue dialysis per nephrology service. Continue supportive care.
[2017-01-31] MEDS: AMLODIPINE BESYLATE 10 MG TABLET PO SCH (10:31)
[2017-01-31] MEDS: METOPROLOL TARTRATE 100 MG TABLET PO SCH ×2 (10:32→22:10)
[2017-01-31 11:38] LABS: HEPATITIS C QUANTITATION HCV Not Detected IU/mL (.)
[2017-01-31] MEDS: GABAPENTIN 300 MG CAPSULE PO SCH ×2 (15:36→22:10)
[2017-01-31] MEDS: CYCLOBENZAPRINE HCL 10 MG TABLET PO SCH ×2 (15:37→22:10)
[2017-01-31] MEDS: HYDRALAZINE HCL 25 MG TABLET PO SCH ×2 (15:39→22:10)
[2017-01-31] MEDS: TRAZODONE HCL 50 MG TABLET PO SCH (22:10)
[2017-01-31] MEDS: INSULIN LISPRO 100 UNIT/ML 3 ML VIAL SUBCUT PRN (22:10)
[2017-02-01] MEDS: IPRATROPIUM/ALBUTEROL 0.5-2.5 MG/3 ML AMPUL NEB SCH ×3 (00:01→16:00)
[2017-02-01] MEDS: CYCLOBENZAPRINE HCL 10 MG TABLET PO SCH ×3 (06:24→21:44)
[2017-02-01] MEDS: GABAPENTIN 300 MG CAPSULE PO SCH ×3 (06:24→21:44)
[2017-02-01] MEDS: HYDRALAZINE HCL 25 MG TABLET PO SCH ×3 (06:24→21:44)
[2017-02-01] MEDS: HEPARIN SOD (PORCINE) 5,000 UNIT/ML 1 ML SYRINGE SUBCUT SCH ×3 (06:24→21:44)
[2017-02-01] MEDS: OXYCODONE-ACETAMINOPHEN 5-325 MG TABLET PO PRN ×3 (06:30→21:44)
--- NOTE | 2017-02-01 09:30 | PDOC PROGRESS REPORT ---
Subjective Progress Note for:: 02/01/17 Subjective:: No complaints. Sleeps well. Good urine output. No N/V/SOB/chills/fever/CP. Physical Exam Vital Signs: Temp Pulse Resp BP Pulse Ox 97.4 F 72 16 142/85 H 94 02/01/17 04:36 02/01/17 04:36 02/01/17 04:36 02/01/17 04:36 02/01/17 04:36 Intake & Output 01/31/17 02/01/17 02/02/17 06:59 06:59 06:59 Intake Total 1196 1352 Output Total 1770 2930 Balance -574 -1578 Weight 100.2 kg 98.3 kg General appearance: PRESENT: no acute distress, cooperative, obese Head exam: PRESENT: normocephalic Eye exam: PRESENT: EOMI Mouth exam: PRESENT: moist, neck supple Neck exam: ABSENT: JVD Respiratory exam: PRESENT: clear to auscultation dimitrios. ABSENT: rhonchi, wheezes Cardiovascular exam: PRESENT: RRR. ABSENT: gallop GI/Abdominal exam: PRESENT: soft. ABSENT: distended, tenderness Extremities exam: PRESENT: other - trace LE edema B/L Neurological exam: PRESENT: alert, awake, oriented to situation Skin exam: PRESENT: dry, warm. ABSENT: cyanosis Results Laboratory Results: 01/30/17 08:20 01/30/17 06:10 01/25/17 01/25/17 01/25/17 04:55 04:55 11:08 Creatine Kinase 202 H 217 H CK-MB (CK-2) 2.60 Troponin I < 0.012 01/25/17 11:08 Creatine Kinase CK-MB (CK-2) 2.67 Troponin I < 0.012 Impressions: Chest X-Ray 01/25/17 00:00 IMPRESSION: No acute consolidations or pleural effusions are identified. Other findings as noted above Renal Ultrasound 01/25/17 00:00 IMPRESSION: No significant renal abnormalities are identified. Other findings as noted above Assessment & Plan - Diagnosis (1) Altered mental status, unspecified Qualifiers: Altered mental status type: unspecified Qualified Code(s): R41.82 - Altered mental status, unspecified Is this a current diagnosis for this admission?: Yes (2) Hypotension due to drugs Is this a current diagnosis for this admission?: Yes (3) Acute renal failure Qualifiers: Acute renal failure type: unspecified Qualified Code(s): N17.9 - Acute kidney failure, unspecified (4) Hyperkalemia Is this a current diagnosis for this admission?: Yes (5) Leukocytosis Qualifiers: Leukocytosis type: unspecified Qualified Code(s): D72.829 - Elevated white blood cell count, unspecified Is this a current diagnosis for this admission?: Yes (6) Anemia Qualifiers: Anemia type: unspecified type Qualified Code(s): D64.9 - Anemia, unspecified Is this a current diagnosis for this admission?: Yes (7) Type II diabetes mellitus Qualifiers: Diabetes mellitus complication status: with unspecified complications Diabetes mellitus mcc insulin use: unspecified mcc insulin use status Qualified Code(s): E11.8 - Type 2 diabetes mellitus with unspecified complications; Z79.4 - correction (current) use of insulin Is this a current diagnosis for this admission?: Yes (8) Hyperlipidemia Qualifiers: Hyperlipidemia type: unspecified Qualified Code(s): E78.5 - Hyperlipidemia, unspecified Is this a current diagnosis for this admission?: Yes (9) Peripheral neuropathy Qualifiers: Peripheral neuropathy type: polyneuropathy, unspecified Qualified Code(s): G62.9 - Polyneuropathy, unspecified Is this a current diagnosis for this admission?: Yes (10) Essential hypertension Is this a current diagnosis for this admission?: Yes (11) Bipolar disorder Qualifiers: Active/Remission status: remission status unspecified Qualified Code (s): F31.9 - Bipolar disorder, unspecified Is this a current diagnosis for this admission?: Yes (12) Chronic pain syndrome Is this a current diagnosis for this admission?: Yes - Time Time Spent with patient: Less than 15 minutes - Plan Summary Plan Summary: D/C perez catheter. Continue dialysis per nephrology service. We will ask w/ Dr. Thacker if this will be exterminator helper, then may need PermCath.
[2017-02-01] MEDS: AMLODIPINE BESYLATE 10 MG TABLET PO SCH (09:51)
[2017-02-01] MEDS: METOPROLOL TARTRATE 100 MG TABLET PO SCH ×2 (09:51→21:44)
[2017-02-01] MEDS: INSULIN LISPRO 100 UNIT/ML 3 ML VIAL SUBCUT PRN ×2 (11:58→22:46)
[2017-02-01] MEDS: TRAZODONE HCL 50 MG TABLET PO SCH (21:44)
[2017-02-02] MEDS: GABAPENTIN 300 MG CAPSULE PO SCH (06:14)
[2017-02-02] MEDS: HYDRALAZINE HCL 25 MG TABLET PO SCH ×3 (06:14→21:30)
[2017-02-02] MEDS: HEPARIN SOD (PORCINE) 5,000 UNIT/ML 1 ML SYRINGE SUBCUT SCH ×3 (06:15→21:30)
[2017-02-02] MEDS: OXYCODONE-ACETAMINOPHEN 5-325 MG TABLET PO PRN ×2 (06:15→16:40)
[2017-02-02] MEDS: CYCLOBENZAPRINE HCL 10 MG TABLET PO SCH ×3 (06:15→21:29)
[2017-02-02 06:33] LABS: ANION GAP 14 (5-19); BLOOD UREA NITROGEN 32 mg/dL (7-20); CALCIUM 8.8 mg/dL (8.4-10.2); CARBON DIOXIDE 23 mmol/L (22-30); CHLORIDE 100 mmol/L (98-107); CREATININE RESULT 4.67 mg/dL (0.52-1.25); GLUCOSE 114 mg/dL (75-110); POTASSIUM 4.1 mmol/L (3.6-5.0); SODIUM 137.3 mmol/L (137-145)
[2017-02-02] MEDS: AMLODIPINE BESYLATE 10 MG TABLET PO SCH (09:27)
[2017-02-02] MEDS: METOPROLOL TARTRATE 100 MG TABLET PO SCH ×2 (09:27→21:29)
--- NOTE | 2017-02-02 09:28 | PDOC PROGRESS REPORT ---
Subjective Progress Note for:: 02/02/17 Subjective:: Appetite is good . No complaints. Sleeps well last night. Good urine output. No N/V/SOB/chills/fever/CP. Physical Exam Vital Signs: Temp Pulse Resp BP Pulse Ox 97.9 F 75 20 149/78 H 94 02/02/17 07:40 02/02/17 07:40 02/02/17 07:40 02/02/17 07:40 02/02/17 07:40 Intake & Output 02/01/17 02/02/17 02/03/17 06:59 06:59 06:59 Intake Total 1352 1610 Output Total 2930 Balance -1578 1610 Weight 98.3 kg 98.8 kg General appearance: PRESENT: no acute distress, cooperative, obese Head exam: PRESENT: normocephalic Eye exam: PRESENT: EOMI Mouth exam: PRESENT: moist, neck supple Neck exam: ABSENT: JVD Respiratory exam: PRESENT: clear to auscultation dimitrios - an 1teriorly, rales - Dry rales posteriorly on the lower lung solis. ABSENT: rhonchi, wheezes Cardiovascular exam: PRESENT: RRR. ABSENT: gallop GI/Abdominal exam: PRESENT: soft. ABSENT: distended - Obese, tenderness Rectal exam: PRESENT: other - trace lower extremity edema Neurological exam: PRESENT: alert, awake, oriented to person, oriented to place , oriented to time, oriented to situation Skin exam: PRESENT: dry, warm. ABSENT: cyanosis Results Laboratory Results: 01/30/17 08:20 02/02/17 05:53 02/02/17 05:53 Sodium 137.3 Potassium 4.1 Chloride 100 Carbon Dioxide 23 Anion Gap 14 BUN 32 H Creatinine 4.67 H Est GFR ( Amer) 15 L Est GFR (Non-Af Amer) 13 L Glucose 114 H Calcium 8.8 01/25/17 01/25/17 01/25/17 04:55 04:55 11:08 Creatine Kinase 202 H 217 H CK-MB (CK-2) 2.60 Troponin I < 0.012 01/25/17 11:08 Creatine Kinase CK-MB (CK-2) 2.67 Troponin I < 0.012 Impressions: Chest X-Ray 01/25/17 00:00 IMPRESSION: No acute consolidations or pleural effusions are identified. Other findings as noted above Renal Ultrasound 01/25/17 00:00 IMPRESSION: No significant renal abnormalities are identified. Other findings as noted above Assessment & Plan - Diagnosis (1) Altered mental status, unspecified Qualifiers: Altered mental status type: unspecified Qualified Code(s): R41.82 - Altered mental status, unspecified Is this a current diagnosis for this admission?: Yes (2) Hypotension due to drugs Is this a current diagnosis for this admission?: Yes (3) Acute renal failure Qualifiers: Acute renal failure type: unspecified Qualified Code(s): N17.9 - Acute kidney failure, unspecified (4) Hyperkalemia Is this a current diagnosis for this admission?: Yes (5) Leukocytosis Qualifiers: Leukocytosis type: unspecified Qualified Code(s): D72.829 - Elevated white blood cell count, unspecified Is this a current diagnosis for this admission?: Yes (6) Anemia Qualifiers: Anemia type: unspecified type Qualified Code(s): D64.9 - Anemia, unspecified Is this a current diagnosis for this admission?: Yes (7) Type II diabetes mellitus Qualifiers: Diabetes mellitus complication status: with unspecified complications Diabetes mellitus nursing home insulin use: unspecified director long term care insulin use status Qualified Code(s): E11.8 - Type 2 diabetes mellitus with unspecified complications; Z79.4 - terminal supervisor (current) use of insulin Is this a current diagnosis for this admission?: Yes (8) Hyperlipidemia Qualifiers: Hyperlipidemia type: unspecified Qualified Code(s): E78.5 - Hyperlipidemia, unspecified Is this a current diagnosis for this admission?: Yes (9) Peripheral neuropathy Qualifiers: Peripheral neuropathy type: polyneuropathy, unspecified Qualified Code(s): G62.9 - Polyneuropathy, unspecified Is this a current diagnosis for this admission?: Yes (10) Essential hypertension Is this a current diagnosis for this admission?: Yes (11) Bipolar disorder Qualifiers: Active/Remission status: remission status unspecified Qualified Code (s): F31.9 - Bipolar disorder, unspecified Is this a current diagnosis for this admission?: Yes (12) Chronic pain syndrome Is this a current diagnosis for this admission?: Yes - Time Time Spent with patient: Less than 15 minutes - Plan Summary Plan Summary: Continue hemodialysis plan. Case discussed with nephrology service regarding arrangement for continued chronic dialysis, we will consult vasc. surg for permacath placement and patient to be arranged for out-patient dialysis. Dr. Thacker will follow patient see if his crea will improve.
--- NOTE | 2017-02-02 11:18 | CONSULTATION REPORT E ---
Consultation Report NAME: LAKEISHA YATES : 1955 AGE: 61Y DATE: 02/02/2017 ROOM: 434 A TO: COURTNEY MOTNGOMERY M.D. FROM: ALLIE HANSEN M.D. Requesting Physician REPORT OF CONSULTATION: The patient is a 61-year-old -[place] male with a history of multiple chronic medical problems, including end-stage renal failure, now undergoing dialysis, acutely, through right groin Trialysis catheter. Long-term access is requested. PAST MEDICAL AND SURGICAL HISTORY: Can be found in the history and physical document. PHYSICAL EXAMINATION: GENERAL: The patient is examined at fourth floor [facility]. He is in no acute distress. The patient is awake, alert, and oriented x4. LUNGS: Diminished in the bases bilaterally. RIGHT GROIN: With Trialysis catheter into position. DIAGNOSTICS: Laboratory profile shows a blood sugar of 127. IMPRESSION: ACUTE SUPERIMPOSED ON CHRONIC RENAL FAILURE IN NEED OF PERMANENT DIALYSIS ACCESS. PLAN: We will set the patient up for perm catheter placement, right neck, operating room, LMAC anesthesia. I have reviewed the risks, benefits, and alternatives to the planned procedure with the patient. I believe he understands and agrees to proceed. DICTATING PHYSICIAN: COURTNEY MONTGOMERY M.D. [id number] Y#: [id number] ID: [id number] JOB#: [id number] ACCT: [id number] cc:COURTNEY MONTGOMERY M.D. >
[2017-02-02] MEDS: INSULIN LISPRO 100 UNIT/ML 3 ML VIAL SUBCUT PRN ×3 (11:33→21:30)
[2017-02-02] MEDS: OXYCODONE HCL IR 5 MG TABLET PO PRN ×2 (11:44→21:30)
[2017-02-02] MEDS ORDERED: ACETAMINOPHEN 325 MG TABLET PO PRN (14:21)
[2017-02-02] MEDS ORDERED: HEPARIN SOD (PORCINE) 1,000 UNIT/ML 10 ML VIAL IV PRN (15:00)
--- NOTE | 2017-02-02 15:41 | PDOC PROGRESS REPORT ---
Subjective Progress Note for:: 02/02/17 Subjective:: I am seeing the patient on hemodialysis today. He looks much better. His mentation seems to be almost back to normal. He tells me that he only remembers bits and pieces of what happened last week. He is tolerating dialysis without any problems or concerns. He is hemodynamically stable. He is agreeable in continuing hemodialysis as needed as an outpatient. Physical Exam Vital Signs: Temp Pulse Resp BP Pulse Ox 97.9 F 69 20 149/78 H 94 02/02/17 07:40 02/02/17 14:00 02/02/17 07:40 02/02/17 07:40 02/02/17 07:40 Intake & Output 02/01/17 02/02/17 02/03/17 06:59 06:59 06:59 Intake Total 1352 1610 Output Total 2930 Balance -1578 1610 Weight 98.3 kg 98.8 kg Vitals during dialysis at this time: Blood pressure 132/86, heart rate of 70, blood flow rate 250 mL/min and dialysate flow rate of 500 mL/min. Exam: General appearance: PRESENT: no acute distress, cooperative, well-developed, well-nourished and Head exam: PRESENT: atraumatic, normocephalic Eye exam: PRESENT: conjunctiva pale, PERRLA. ABSENT: scleral icterus Neck exam: ABSENT: JVD Respiratory exam: He PRESENT: Slightly diminished breath sounds. ABSENT: crackles, rales, rhonchi , unlabored, wheezes Cardiovascular exam: PRESENT: Regular rate rhythm -+S1, +S2. ABSENT: diastolic murmur, systolic murmur GI/Abdominal exam: PRESENT: normal bowel sounds, soft. ABSENT: guarding, mass, tenderness Extremities exam: Mild grade 1 bilateral ankle edema Neurological exam: The PRESENT: alert, awake, oriented to person, place and ti me. Skin exam: PRESENT: dry, warm, Cardiovascular exam: PRESENT: +S1, +S2, systolic murmur GI/Abdominal exam: PRESENT: normal bowel sounds, soft. ABSENT: distended, organomegaly, tenderness Results Laboratory Results: 01/30/17 08:20 02/02/17 05:53 02/02/17 05:53 Sodium 137.3 Potassium 4.1 Chloride 100 Carbon Dioxide 23 Anion Gap 14 BUN 32 H Creatinine 4.67 H Est GFR ( Amer) 15 L Est GFR (Non-Af Amer) 13 L Glucose 114 H Calcium 8.8 01/25/17 01/25/17 01/25/17 04:55 04:55 11:08 Creatine Kinase 202 H 217 H CK-MB (CK-2) 2.60 Troponin I < 0.012 01/25/17 11:08 Creatine Kinase CK-MB (CK-2) 2.67 Troponin I < 0.012 Impressions: Chest X-Ray 01/25/17 00:00 IMPRESSION: No acute consolidations or pleural effusions are identified. Other findings as noted above Renal Ultrasound 01/25/17 00:00 IMPRESSION: No significant renal abnormalities are identified. Other findings as noted above Assessment & Plan - Diagnosis (1) Acute on chronic renal failure Qualifiers: Acute renal failure type: with acute tubular necrosis Is this a current diagnosis for this admission?: YesPlan: We will do dialysis today for 3 hours, using the patient's trialysis catheter, with 3 potassium bath, blood flow rate of 250 mL per minute, dialysate flow rate of 500 mL per minute, ultrafiltration 1.5 L, no heparin and Procrit with 10 ,000 units during dialysis intravenously. Patient will be monitored for dialysis treatment. Since the patient's kidney function does not seem to be improving yet he will need to continue hemodialysis treatment as an outpatient. The plan is to put a PermCath tomorrow by Dr. Martin. If the procedure goes well he can go home after her implant placement tomorrow and his next dialysis will be at [facility] on Thursday. He will need to be there at 1:45 PM to sign paperwork and be dialyzed subsequently after that. However if there are some complications of PermCath placement then he can stay here tomorrow and be dialyzed on Thursday and can be discharged after. Patient is aware of the plan and in and is agreeable with it. There have been no new liver facility is also aware and has accepted the patient after discharge. Plan discussed with Dr. Kelsey. (2) Acute tubular necrosis Is this a current diagnosis for this admission?: YesPlan: Due to hypotension. (3) Metabolic acidosis Is this a current diagnosis for this admission?: YesPlan: Resolved with dialysis. (4) Hypocalcemia Is this a current diagnosis for this admission?: YesPlan: Resolved. (5) Altered mental status, unspecified Qualifiers: Altered mental status type: unspecified Qualified Code(s): R41.82 - Altered mental status, unspecified Is this a current diagnosis for this admission?: YesPlan: Resolved. (6) Anemia Qualifiers: Anemia type: unspecified type Qualified Code(s): D64.9 - Anemia, unspecified Is this a current diagnosis for this admission?: YesPlan: Secondary to iron deficiency as well as possible underlying chronic kidney disease. Patient was given IV Feraheme last Thursday. We will give him Procrit today. (7) Chronic pain syndrome Is this a current diagnosis for this admission?: YesPlan: Due to his shoulder pain and peripheral neuropathy. (8) Essential hypertension Is this a current diagnosis for this admission?: YesPlan: Well-controlled. (9) Peripheral neuropathy Qualifiers: Peripheral neuropathy type: polyneuropathy, unspecified Qualified Code(s): G62.9 - Polyneuropathy, unspecified Is this a current diagnosis for this admission?: Yes (10) Type II diabetes mellitus Qualifiers: Diabetes mellitus complication status: with unspecified complications Diabetes mellitus termite control servicer insulin use: unspecified termite control servicer insulin use status Qualified Code(s): E11.8 - Type 2 diabetes mellitus with unspecified complications; Z79.4 - terminal operations manager (current) use of insulin Is this a current diagnosis for this admission?: Yes - Time Time with patient: 15-25 minutes
[2017-02-02] MEDS ORDERED: EPOETIN ALFA 10,000 UNIT in SYRINGE, DISPOSABLE, 1 EACH IV PRN (15:45)
[2017-02-02] MEDS: FOLIC ACID/VITAMIN B COMP W-C CAPSULE PO SCH (16:42)
--- NOTE | 2017-02-02 18:58 | PDOC DISCHARGE SUMMARY ---
General - Admit/Disc Date/PCP Admission Date/Primary Care Provider: 01/25/17 00:05 JORGE WILLIAMSON Discharge Date: 02/03/17 - Discharge Diagnosis (1) Altered mental status, unspecified Is this a current diagnosis for this admission?: Yes (2) Hypotension due to drugs Is this a current diagnosis for this admission?: Yes (4) Hyperkalemia Is this a current diagnosis for this admission?: Yes (5) Leukocytosis Is this a current diagnosis for this admission?: Yes (6) Anemia Is this a current diagnosis for this admission?: Yes (7) Type II diabetes mellitus Is this a current diagnosis for this admission?: Yes (8) Hyperlipidemia Is this a current diagnosis for this admission?: Yes (9) Peripheral neuropathy Is this a current diagnosis for this admission?: Yes (10) Essential hypertension Is this a current diagnosis for this admission?: Yes (11) Bipolar disorder Is this a current diagnosis for this admission?: Yes (12) Chronic pain syndrome Is this a current diagnosis for this admission?: Yes - Additional Information Resuscitation Status: Full Code Discharge Diet: Cardiac - low fat, low salt, Other (Comments) - renal Discharge Activity: Activity As Tolerated, Balance Activity w/Rest, Slowly Increase Activity Home Medications: Amlodipine Besylate [Norvasc 10 mg Tablet] 10 mg PO DAILY 01/25/17 Cyclobenzaprine HCl [Flexeril 10 mg Tablet] 10 mg PO Q8 01/25/17 Ergocalciferol (Vitamin D2) [Vitamin D2] 50,000 unit PO Q7D 01/25/17 Gabapentin [Neurontin] 600 mg PO Q6 01/25/17 Glipizide [Glucotrol 10 mg Tablet] 10 mg PO DAILY 01/25/17 Hydrochlorothiazide 25 mg PO DAILY 01/25/17 Lurasidone HCl [Latuda] 40 mg PO DAILY 01/25/17 Metformin HCl [Glucophage] 1,000 mg PO BID 01/25/17 Metoprolol Tartrate [Lopressor 100 mg Tablet] 100 mg PO Q12 01/25/17 Naproxen 500 mg PO BID 01/25/17 Oxycodone HCl/Acetaminophen [Percocet 10-325 Mg Tablet] 1 tab PO Q12 01/25/17 Sertraline HCl [Zoloft] 100 mg PO DAILY 01/25/17 Sertraline HCl [Zoloft] 100 mg PO DAILY 01/25/17 Trazodone HCl 150 mg PO QHS 01/25/17 Hydralazine HCl [Apresoline 25 mg Tablet] 25 mg PO Q8 #90 tablet 02/02/17 Oxycodone HCl/Acetaminophen [Percocet 10-325 mg Tablet] 1 tab PO Q12 PRN #0 Additional Information: Hemodialysis at [facility] every Thursday and Thursday. History of Present Illness Patient complains of: Altered mental status History of Present Illness: LAKEISHA YATES is a 61 year old male, history of nonoliguric stage V chronic kidney disease hypertension , diabetes, brought to the emergency room because of altered mental status. Patient apparently took oxycodone for his shoulder pain subsequently, noted by family to be confused. The ambulance was called and patient reportedly apneic, was given Narcan and the patient's mental status improved oh which subsequently another dose is necessary because the patient started developing apneic episodes and therefore the patient was brought to the emergency room. There was no suicidal ideation or intent. For details, vianca Arzola refer to history and physical examination performed by the admitting physician. Hospital Course Hospital Course: The patient was admitted to telemetry. The patient was gently hydrated with IV fluids however the patient's creatinine did not improve. The patient's mental status improved mildly but patient still exhibits confusion. Renal ultrasound did not reveal any obstruction. Nephrology was therefore consulted and felt that patient required hemodialysis. In terms of the patient's hyperkalemia the patient was given Kayexalate, D50 and insulin, albuterol and calcium and eventually the hyperkalemia was corrected. There was no reported overdose by the patient when she woke up. Dr. Morales was consulted and eventually placed a dialysis catheter and hemodialysis was begun. Since then the patient's mental status significantly improved. Course was noted for blood pressure elevation and therefore his home blood pressure medications were resumed, and likewise hydralazine was added. In terms of her blood sugar and glucose control he was placed on sliding scale insulin. The patient creatinine showed no significant improvement, nephrology decided to dialyze the patient on an outpatient basis of which vascular surgery was again consulted for permacath placement. Hemodialysis spot was therefore made for the patient at [facility]. Nephrology service will follow the patient and see if there would be improvement in his creatinine but will be done on an outpatient basis. Physical Exam Vital Signs: Temp Pulse Resp BP Pulse Ox 97.9 F 69 20 149/78 H 94 02/02/17 07:40 02/02/17 14:00 02/02/17 07:40 02/02/17 07:40 02/02/17 07:40 Intake & Output 02/01/17 02/02/17 02/03/17 06:59 06:59 06:59 Intake Total 1352 1610 1010 Output Total 2930 4100 Balance -1578 1610 -3090 Weight 98.3 kg 98.8 kg General appearance: PRESENT: no acute distress, cooperative, obese Head exam: PRESENT: normocephalic Eye exam: PRESENT: EOMI Mouth exam: PRESENT: moist, neck supple Neck exam: ABSENT: JVD Respiratory exam: PRESENT: rales - Occasional on the lower lung solis, unlabored. ABSENT: rhonchi, wheezes Cardiovascular exam: PRESENT: RRR. ABSENT: gallop GI/Abdominal exam: PRESENT: normal bowel sounds, soft. ABSENT: distended, tenderness Extremities exam: PRESENT: other - Trace edema Neurological exam: PRESENT: alert, awake, oriented to person, oriented to place , oriented to time, oriented to situation Skin exam: PRESENT: dry, warm. ABSENT: cyanosis Results Laboratory Results: 01/30/17 08:20 02/02/17 05:53 02/02/17 05:53 Sodium 137.3 Potassium 4.1 Chloride 100 Carbon Dioxide 23 Anion Gap 14 BUN 32 H Creatinine 4.67 H Est GFR ( Amer) 15 L Est GFR (Non-Af Amer) 13 L Glucose 114 H Calcium 8.8 01/25/17 01/25/17 01/25/17 04:55 04:55 11:08 Creatine Kinase 202 H 217 H CK-MB (CK-2) 2.60 Troponin I < 0.012 01/25/17 11:08 Creatine Kinase CK-MB (CK-2) 2.67 Troponin I < 0.012 Impressions: Chest X-Ray 01/25/17 00:00 IMPRESSION: No acute consolidations or pleural effusions are identified. Other findings as noted above Renal Ultrasound 01/25/17 00:00 IMPRESSION: No significant renal abnormalities are identified. Other findings as noted above Qualifiers PATEINT BEING DISCHARGED WITH ANY OF THE FOLLOWING DIAGNOSIS?: No Plan Discharge Plan: Follow-up with primary care physician in 1 week, follow-up with Dr. Thacker in 1-2 weeks. Time Spent: Less than 30 Minutes
[2017-02-02] MEDS: TRAZODONE HCL 50 MG TABLET PO SCH (21:29)
[2017-02-03] MEDS: OXYCODONE-ACETAMINOPHEN 5-325 MG TABLET PO PRN (01:18)
[2017-02-03] MEDS: HEPARIN SOD (PORCINE) 5,000 UNIT/ML 1 ML SYRINGE SUBCUT SCH ×2 (05:46→14:58)
[2017-02-03] MEDS ORDERED: GABAPENTIN 300 MG CAPSULE PO SCH (06:00)
[2017-02-03] MEDS: CYCLOBENZAPRINE HCL 10 MG TABLET PO SCH ×2 (06:20→14:57)
[2017-02-03] MEDS: HYDRALAZINE HCL 25 MG TABLET PO SCH ×2 (06:20→14:57)
[2017-02-03] MEDS ORDERED: LIDOCAINE 1%/EPINEPHRINE INJ 20 ML VIAL ONE (06:38)
[2017-02-03 06:39] LABS: ABSOLUTE EOSINOPHILS # (AUTO) 1.5 10^3/uL (0.0-0.6); ABSOLUTE LYMPHOCYTES (AUTO) 3.4 10^3/uL (0.5-4.7); ABSOLUTE MONOCYTES (AUTO) 0.9 10^3/uL (0.1-1.4); BASOPHILS % (AUTO) 0.2 % (0-2); EOSINOPHILS % (AUTO) 11.9 % (0-6); HEMATOCRIT 27.2 % (37.9-51.0); HGB HCT DIFFERENCE -0.2; LYMPHOCYTES % (AUTO) 26.8 % (13-45); MEAN CORPUSCULAR HEMOGLOBIN 27.9 pg (27.0-33.4); MEAN CORPUSCULAR HGB CONC 32.9 g/dL (32.0-36.0); MEAN CORPUSCULAR VOLUME 85 fl (80-97); MONOCYTES % (AUTO) 6.7 % (3-13); RED BLOOD COUNT 3.22 10^6/uL (4.35-5.55); RED CELL DISTRIBUTION WIDTH 14.3 % (11.5-14.0); SEGMENTED NEUTROPHILS % (AUTO) 54.4 % (42-78); WHITE BLOOD COUNT 12.8 10^3/uL (4.0-10.5)
[2017-02-03] MEDS ORDERED: MIDAZOLAM 2 MG/2 ML INJ ONE (07:23)
[2017-02-03] MEDS ORDERED: FENTANYL CITRATE INJ/PF 100 MCG/2 ML AMPUL ONE (07:23)
[2017-02-03] MEDS ORDERED: PROPOFOL INJ 200 MG/20 ML VIAL IV ONE (07:24)
[2017-02-03] MEDS ORDERED: DEXMEDETOMIDINE INJ 80 MCG/20 ML VIAL IV ONE (07:24)
[2017-02-03] MEDS ORDERED: CEFAZOLIN INJ 1 GM VIAL ONE (08:10)
[2017-02-03] MEDS ORDERED: HEPARIN SOD (PORCINE) 5,000 UNIT/ML 1 ML SYRINGE ONE (08:37)
--- NOTE | 2017-02-03 09:26 | RADIOLOGY REPORT (SQ) ---
EXAM DESCRIPTION: CHEST SINGLE VIEW COMPLETED DATE/TIME: 02/03/2017 9:01 am REASON FOR STUDY: post perm catheter placement COMPARISON: 01/25/2017. NUMBER OF VIEWS: One view. TECHNIQUE: Single frontal radiographic view of the chest acquired. LIMITATIONS: None. FINDINGS: LUNGS AND PLEURA: Low lung volumes with resultant vascular crowding. Chronic central vasc ular congestion, less pronounced compared to prior. No large pleural effusion. No pneumothorax. MEDIASTINUM AND HILAR STRUCTURES: Stable contours. HEART AND VASCULAR STRUCTURES: Stable heart size. Mildly enlarged. BONES: No acute findings. HARDWARE: Right IJ dialysis catheter in place, tip to the right atrium. No pneumothorax. OTHER: No other significant finding. IMPRESSION: 1. Dialysis catheter placed. No pneumothorax. Appropriate position. Mild vascular con gestion. TECHNICAL DOCUMENTATION: JOB ID: [id number] [employer]- All Rights Reserved
[2017-02-03] MEDS: AMLODIPINE BESYLATE 10 MG TABLET PO SCH (10:17)
[2017-02-03] MEDS: METOPROLOL TARTRATE 100 MG TABLET PO SCH (10:17)
--- NOTE | 2017-02-03 11:15 | PDOC PROGRESS REPORT ---
Subjective Progress Note for:: 02/03/17 Subjective:: Denies any complaints today. Physical Exam Vital Signs: Temp Pulse Resp BP Pulse Ox 97.6 F 73 18 168/89 H 100 02/03/17 10:47 02/03/17 10:47 02/03/17 10:47 02/03/17 10:47 02/03/17 10:47 Intake & Output 02/02/17 02/03/17 02/04/17 06:59 06:59 06:59 Intake Total 1610 1910 30 Output Total 5300 0 Balance 1610 -3390 30 Weight 98.8 kg 97.8 kg General appearance: PRESENT: no acute distress Eye exam: PRESENT: conjunctiva pink. ABSENT: scleral icterus Mouth exam: PRESENT: moist, tongue midline Neck exam: ABSENT: JVD Respiratory exam: PRESENT: clear to auscultation dimitrios. ABSENT: rales, rhonchi, wheezes Cardiovascular exam: PRESENT: RRR. ABSENT: diastolic murmur, rubs, systolic murmur GI/Abdominal exam: PRESENT: normal bowel sounds, soft. ABSENT: distended, guarding, mass, organolmegaly, rebound, tenderness Extremities exam: PRESENT: full ROM. ABSENT: calf tenderness, clubbing, pedal edema Neurological exam: PRESENT: alert, awake, oriented to person, oriented to place , oriented to time, oriented to situation, CN II-XII grossly intact. ABSENT: motor sensory deficit Psychiatric exam: PRESENT: appropriate affect Skin exam: PRESENT: dry, intact, warm. ABSENT: cyanosis, rash Results Laboratory Results: 02/03/17 06:25 02/02/17 05:53 02/03/17 06:25 WBC 12.8 H RBC 3.22 L Hgb 9.0 L Hct 27.2 L MCV 85 MCH 27.9 MCHC 32.9 RDW 14.3 H Plt Count 341 Seg Neutrophils % 54.4 Lymphocytes % 26.8 Monocytes % 6.7 Eosinophils % 11.9 H Basophils % 0.2 Absolute Neutrophils 7.0 Absolute Lymphocytes 3.4 Absolute Monocytes 0.9 Absolute Eosinophils 1.5 H Absolute Basophils 0.0 01/25/17 01/25/17 01/25/17 04:55 04:55 11:08 Creatine Kinase 202 H 217 H CK-MB (CK-2) 2.60 Troponin I < 0.012 01/25/17 11:08 Creatine Kinase CK-MB (CK-2) 2.67 Troponin I < 0.012 Impressions: Renal Ultrasound 01/25/17 00:00 IMPRESSION: No significant renal abnormalities are identified. Other findings as noted above Chest X-Ray 02/03/17 08:27 IMPRESSION: 1. Dialysis catheter placed. No pneumothorax. Appropriate position. Mild vascular congestion. Assessment & Plan - Diagnosis (1) Chronic kidney disease Qualifiers: Chronic kidney disease stage: unspecified stage Qualified Code(s): N18.9 - Chronic kidney disease, unspecified Is this a current diagnosis for this admission?: YesPlan: Patient had a permacath placed without difficulty. He is therefore discharged home. He will start outpatient dialysis tomorrow. (2) Altered mental status, unspecified Qualifiers: Altered mental status type: unspecified Qualified Code(s): R41.82 - Altered mental status, unspecified Is this a current diagnosis for this admission?: YesPlan: Resolved (3) Anemia Qualifiers: Anemia type: unspecified type Qualified Code(s): D64.9 - Anemia, unspecified Is this a current diagnosis for this admission?: YesPlan: Secondary to chronic renal failure. (4) Chronic pain syndrome Is this a current diagnosis for this admission?: Yes (5) Essential hypertension Is this a current diagnosis for this admission?: YesPlan: Stable (6) Hyperlipidemia Qualifiers: Hyperlipidemia type: unspecified Qualified Code(s): E78.5 - Hyperlipidemia, unspecified Is this a current diagnosis for this admission?: Yes (7) Peripheral neuropathy Qualifiers: Peripheral neuropathy type: polyneuropathy, unspecified Qualified Code(s): G62.9 - Polyneuropathy, unspecified Is this a current diagnosis for this admission?: YesPlan: Continue gabapentin (8) Type II diabetes mellitus Qualifiers: Diabetes mellitus complication status: with unspecified complications Diabetes mellitus intermodal truck driver insulin use: unspecified nursing home insulin use status Qualified Code(s): E11.8 - Type 2 diabetes mellitus with unspecified complications; Z79.4 - joint terminal attack controller (current) use of insulin Is this a current diagnosis for this admission?: Yes - Time Time Spent with patient: 25-34 minutes - Plan Summary Plan Summary: Unwell after dialysis catheter placement. He will be discharged home today. Discharge summary was dictated yesterday. Please see that for full details. There is been no material change since yesterday.
--- NOTE | 2017-02-03 11:18 | RADIOLOGY REPORT (SQ) ---
EXAM DESCRIPTION: CHEST SINGLE VIEW; FLUORO/CV PLACEMENT COMPLETED DATE/TIME: 02/03/2017 9:23 am REASON FOR STUDY: [facility] S[facility] ASSISTED WITH FLUORO IN OR COMPARISON: None. FLUOROSCOPY TIME: 0.1 minutes 4 images saved to PACS. TECHNIQUE: Intra-operative images acquired during surgical procedure to evaluate progress. NUMBER OF IMAGES: 4 LIMITATIONS: None. FINDINGS: Dual lumen dialysis type catheter tip overlies cavoatrial junction. IMPRESSION: IMAGE(S) OBTAINED DURING PROCEDURE. COMMENT: Quality ID [id number]: Final reports for procedures using fluoroscopy that document radiation exp osure indices, or exposure time and number of fluorographic images (if radiation exposure indices are not available) Please consult full operative report of the attending physician for description of the procedure. TECHNICAL DOCUMENTATION: JOB ID: [id number] [employer]- All Rights Reserved
--- NOTE | 2017-02-03 11:18 | RADIOLOGY REPORT (SQ) ---
EXAM DESCRIPTION: CHEST SINGLE VIEW; FLUORO/CV PLACEMENT COMPLETED DATE/TIME: 02/03/2017 9:23 am REASON FOR STUDY: [facility] RT SIDE ASSISTED WITH FLUORO IN OR COMPARISON: None. FLUOROSCOPY TIME: 0.1 minutes 4 images saved to PACS. TECHNIQUE: Intra-operative images acquired during surgical procedure to evaluate progress. NUMBER OF IMAGES: 4 LIMITATIONS: None. FINDINGS: Dual lumen dialysis type catheter tip overlies cavoatrial junction. IMPRESSION: IMAGE(S) OBTAINED DURING PROCEDURE. COMMENT: Quality ID [id number]: Final reports for procedures using fluoroscopy that document radiation exp osure indices, or exposure time and number of fluorographic images (if radiation exposure indices are not available) Please consult full operative report of the attending physician for description of the procedure. TECHNICAL DOCUMENTATION: JOB ID: [id number] [employer]- All Rights Reserved
--- NOTE | 2017-02-03 12:09 | OPERATIVE REPORT E ---
Operative Report NAME: LAKEISHA YATES : 1955 AGE: 61Y DATE OF SURGERY: 02/03/2017 ROOM: 434 PREOPERATIVE DIAGNOSIS: End stage renal failure. POSTOPERATIVE DIAGNOSIS: End stage renal failure. PROCEDURE: 1. Focused ultrasound of the right neck. 2. Ultrasound directed insertion of AshSplit 23 cm tip to cuff perm catheter. 3. Interpretation of intraoperative fluoroscopy. SURGEON: COURTNEY MONTGOMERY M.D. ANESTHESIA: LMAC. COMPLICATIONS: None. ESTIMATED BLOOD LOSS: 15 mL. DRAINS: None. TISSUE REMOVED OR ALTERED: None. SUMMARY OF PROCEDURE: The patient was brought from the preop holding area to the main operating room where LMAC anesthesia was induced. He was placed in supine position, arms tucked, and head and neck rotated to the left. The anterior chest wall and neck were prepped and draped in the sterile fashion. Surgical plan and surgical time out held. Real time ultrasonography was used to scan the right neck. The right internal jugular vein was felt to be suitable for cannulization. The skin was anesthetized with 1% lidocaine plain. A katharine was made in the skin with the 11 blade and the 18-gauge needle and a 0.035 guidewire was inserted into the right internal jugular vein. A suitable site for placement of the perm catheter was chosen on the right anterior chest wall. Skin was anesthetized with local anesthetic, an incision made with the 15 blade, and a 23 cm perm catheter was tunneled between the two incisions. We then dilated up the tract over the wire under fluoroscopic guidance using the small, medium, and large dilators. We then applied the large dilator with strip away sheath over the wire, removing the wire and dilator, and threading the perm catheter into the right internal jugular vein and removing the strip away sheath. Under fluoroscopic guidance, we checked for any kinking of the catheter and there was none. Tip of the perm catheter was in the right atrium. There was no evidence of ectopy. There was excellent aspiration when flushed with both lumens. Catheter was secured to the skin on two sides with 2-0 Prolene sutures. Biopatch, Benzoin, and Steri-Strips applied. The initial stick site was closed with a 3-0 Vicryl suture, Benzoin, and Steri-Strips. Patient tolerated the procedure well without complications and taken to the recovery room in stable condition. Portable chest x-ray pending at time of dictation. DICTATING PHYSICIAN: COURTNEY MONTGOMERY M.D. [id number] PHY#: [id number] ID: [id number] JOB#: [id number] ACCT: [id number] cc:COURTNEY MONTGOMERY M.D. >
[2017-02-03] MEDS ORDERED: LIDOCAINE 2% INJ-PF (20 MG/ML) 10 ML AMPUL ONE (14:13)
[2017-02-03] MEDS ORDERED: METOCLOPRAMIDE HCL INJ/PF 10 MG/2 ML SDV ONE (14:13)
[2017-02-03] MEDS ORDERED: GLYCOPYRROLATE INJ 0.4 MG/2 ML VIAL ONE (14:13)
[2017-02-03] MEDS ORDERED: ONDANSETRON HCL INJ/PF 4 MG/2 ML SDV ONE (14:13)
[2017-02-03] MEDS: FOLIC ACID/VITAMIN B COMP W-C CAPSULE PO SCH (14:57)
[2017-02-03 17:09] VITALS: BP 147/79
== END 2017-02-03 17:09 | disposition home or self-care (01) | DRG 917 ==
LOC: ER 21:45 → EH 01-25 00:05 → ICU 01-25 02:52 → 4S 01-25 15:14
PROVIDERS: ADMIT Internal Medicine; ATTEND Internal Medicine
PROC: 3E0F73Z Introduction of Anti-inflammatory into Respiratory Tract, Via Natural or Artificial Opening (ICD-10-PCS; 2017-01-24)
PROC: 5A1D60Z (ICD-10-PCS; principal; 2017-01-28)
PROC: 06HM33Z Insertion of Infusion Device into Right Femoral Vein, Percutaneous Approach (ICD-10-PCS; 2017-01-28)
PROC: B54BZZA Ultrasonography of Right Lower Extremity Veins, Guidance (ICD-10-PCS; 2017-01-28)
PROC: 5A09357 Assistance with Respiratory Ventilation, Less than 24 Consecutive Hours, Continuous Positive Airway Pressure (ICD-10-PCS; 2017-01-29)
PROC: B2141ZZ Fluoroscopy of Right Heart using Low Osmolar Contrast (ICD-10-PCS; 2017-02-03)
PROC: 02H633Z Insertion of Infusion Device into Right Atrium, Percutaneous Approach (ICD-10-PCS; 2017-02-03)
PROC: B244ZZZ Ultrasonography of Right Heart (ICD-10-PCS; 2017-02-03)
DX: T40.601A Poisoning by unspecified narcotics, accidental (unintentional), initial encounter (principal); N18.6 End stage renal disease; N17.0 Acute kidney failure with tubular necrosis; I12.0 Hypertensive chronic kidney disease with stage 5 chronic kidney disease or end stage renal disease; E87.2 Acidosis; I95.2 Hypotension due to drugs; R41.82 Altered mental status, unspecified; E87.5 Hyperkalemia; D63.1 Anemia in chronic kidney disease; E11.22 Type 2 diabetes mellitus with diabetic chronic kidney disease; E78.5 Hyperlipidemia, unspecified; E11.42 Type 2 diabetes mellitus with diabetic polyneuropathy; Z99.2 Dependence on renal dialysis; F31.9 Bipolar disorder, unspecified; G89.4 Chronic pain syndrome; J44.9 Chronic obstructive pulmonary disease, unspecified; E83.51 Hypocalcemia; K59.03 Drug induced constipation; E86.0 Dehydration; Z79.899 Other long term (current) drug therapy; Z79.4 Long term (current) use of insulin; Z88.8 Allergy status to other drugs, medicaments and biological substances; Z82.61 Family history of arthritis; Z83.3 Family history of diabetes mellitus; Z82.49 Family history of ischemic heart disease and other diseases of the circulatory system
CPT/HCPCS: 00532; 36415; 36556; 71010; 76775; 76937; 77001; 80048; 80053; 80307; 81001; 82040; 82272; 82550; 82553; 82607; 82728; 82746; 82962; 83540; 83550; 83735; 84484; 85025; 85027; 85045; 86317; 86704; 87086; 87340; 87522; 93005; 93010; 94640; 99291; C1752; G8978-GP; G8979-GP; J0610; J0690; J1642; J1644; J1815; J2250; J2310; J2405; J2704; J2765; J3010; J3490; J7030; J7040; J7060; J7620; Q0139; Q4081

== ENCOUNTER 2017-02-22 14:32 | Emergency (ER) | payer MEDICARE ==
[2017-02-22] MEDS ORDERED: FUROSEMIDE 40 MG TABLET PO ONE (15:14)
--- NOTE | 2017-02-22 15:19 | ER Document Report ---
ED Medical Screen (RME) - General Chief Complaint: Shortness Of Breath Stated Complaint: SHORTNESS OF BREATH Time Seen by Provider: 02/22/17 15:14 Notes: Patient is complaining of difficulty breathing for the past couple of days. It is especially worse when he lays down. Patient just recently started dialysis about 3 weeks ago and is on Thursday, Thursday, and Thursday schedule. He missed dialysis Thursday because they had to cancel his appointment and he went out of town for the weekend. So, he has not had any treatment since Thursday. Says he thinks he needs a breathing treatment. Denies any chest pains. Patient says he still makes a lot of urine with his remaining kidney function. Through the patient's paperwork from when he was discharged from the hospital here, I note that he was on hydrochlorothiazide 25 mg daily, but that was discontinued. He does not appear to be on any other diuretic medication. TRAVEL OUTSIDE OF THE [place] IN LAST 30 DAYS: No - Related Data Allergies/Adverse Reactions: lisinopril [Lisinopril] Allergy (Intermediate, Verified 02/22/17 14:37) Unknown reaction Past Medical History - Past Medical History Cardiac Medical History: Reports: Hx Hypercholesterolemia, Hx Hypertension Pulmonary Medical History: Reports: Hx COPD Denies: Hx Tuberculosis Endocrine Medical History: Reports: Hx Diabetes Mellitus Type 2 Renal/ Medical History: Denies: Hx Peritoneal Dialysis - HEMO Malignancy Medical History: GI Medical History: Musculoskeltal Medical History: Reports Hx Arthritis, Reports Hx Musculoskeletal Deformity, Reports Hx Musculoskeletal Trauma Psychiatric Medical History: Reports: Hx Bipolar Disorder, Hx Depression Traumatic Medical History: Infectious Medical History: Past Surgical History: Reports: Hx Orthopedic Surgery - left knee - Immunizations Immunizations up to date: Yes Hx Diphtheria, Pertussis, Tetanus Vaccination: Yes Physical Exam - Vital signs Vitals: Temp Pulse Resp BP Pulse Ox 98.1 F 79 14 160/86 H 97 02/22/17 14:37 02/22/17 14:37 02/22/17 14:37 02/22/17 14:37 02/22/17 14:37 Course - Vital Signs Vital signs: Temp Pulse Resp BP Pulse Ox 98.1 F 79 14 160/86 H 97 02/22/17 14:37 02/22/17 14:37 02/22/17 14:37 02/22/17 14:37 02/22/17 14:37
--- NOTE | 2017-02-22 16:02 | RADIOLOGY REPORT (SQ) ---
EXAM DESCRIPTION: CHEST PA/LAT COMPLETED DATE/TIME: 02/22/2017 3:55 pm REASON FOR STUDY: short of breath, dialysis patient COMPARISON: 11/08/2011 EXAM PARAMETERS: NUMBER OF VIEWS: two views TECHNIQUE: Digital Frontal and Lateral radiographic views of the chest acquired. RADIATION DOSE: NA LIMITATIONS: none FINDINGS: LUNGS AND PLEURA: No opacities, masses or pneumothorax. No pleural effusion. MEDIASTINUM AND HILAR STRUCTURES: No masses or contour abnormalities. HEART AND VASCULAR STRUCTURES: Heart stable in size. No evidence for failure. BONES: No acute findings. HARDWARE: Right-sided PermCath. OTHER: No other significant finding. IMPRESSION: NO SIGNIFICANT RADIOGRAPHIC FINDING IN THE CHEST. TECHNICAL DOCUMENTATION: JOB ID: [id number] [employer]- All Rights Reserved
[2017-02-22 16:45] VITALS: BP 154/93
--- NOTE | 2017-02-22 16:49 | ER Document Report ---
ED General - General Chief Complaint: Shortness Of Breath Stated Complaint: SHORTNESS OF BREATH Time Seen by Provider: 02/22/17 15:14 Mode of Arrival: Ambulatory Information source: Patient Notes: This is a 61-year-old man that presents to the emergency room with pain from his neuropathy. The patient started dialysis approximately 3 weeks ago and states that he does get short of breath but it is worse because he is having a lot of neuropathy and he is having a difficult time finding a position that is comfortable. Patient did run out of his pain medicine. Patient is due for dialysis tomorrow. He did miss his dialysis on Thursday. TRAVEL OUTSIDE OF THE [place] IN LAST 30 DAYS: No - HPI Onset: Just prior to arrival Onset/Duration: Gradual Quality of pain: Dull Severity: Moderate Pain Level: 2 Associated symptoms: Shortness of breath. denies: Chest pain, Chills, Fever Exacerbated by: Movement Relieved by: Denies Similar symptoms previously: Yes Recently seen / treated by doctor: Yes - Related Data Allergies/Adverse Reactions: lisinopril [Lisinopril] Allergy (Intermediate, Verified 02/22/17 14:37) Unknown reaction Past Medical History - General Information source: Patient - Social History Smoking Status: Never Smoker Cigarette use (# per day): No Chew tobacco use (# tins/day): No Frequency of alcohol use: None Drug Abuse: None Lives with: Family Family History: Reviewed & Not Pertinent, Arthritis, DM, Hypertension Patient has suicidal ideation: No Patient has homicidal ideation: No - Past Medical History Cardiac Medical History: Reports: Hx Hypercholesterolemia, Hx Hypertension Pulmonary Medical History: Reports: Hx COPD Denies: Hx Tuberculosis Endocrine Medical History: Reports: Hx Diabetes Mellitus Type 2 Renal/ Medical History: Denies: Hx Peritoneal Dialysis - HEMO Malignancy Medical History: GI Medical History: Musculoskeltal Medical History: Reports Hx Arthritis, Reports Hx Musculoskeletal Deformity, Reports Hx Musculoskeletal Trauma Psychiatric Medical History: Reports: Hx Bipolar Disorder, Hx Depression Traumatic Medical History: Infectious Medical History: Past Surgical History: Reports: Hx Orthopedic Surgery - left knee - Immunizations Immunizations up to date: Yes Hx Diphtheria, Pertussis, Tetanus Vaccination: Yes Hx Pneumococcal Vaccination: 11/13/11 Review of Systems - Review of Systems Constitutional: denies: Chills, Fever EENT: No symptoms reported Cardiovascular: See HPI Respiratory: No symptoms reported Gastrointestinal: No symptoms reported Genitourinary: No symptoms reported Male Genitourinary: No symptoms reported Musculoskeletal: No symptoms reported Skin: No symptoms reported Hematologic/Lymphatic: No symptoms reported Neurological/Psychological: No symptoms reported Physical Exam - Vital signs Vitals: Temp Pulse Resp BP Pulse Ox 98.1 F 79 14 160/86 H 97 02/22/17 14:37 02/22/17 14:37 02/22/17 14:37 02/22/17 14:37 02/22/17 14:37 Notes: Physical exam: GENERAL:-year-old man, alert and oriented 3, no acute distress HEAD: Atraumatic, normocephalic. EYES: Pupils equal round and reactive to light, extraocular movements intact, sclera anicteric, conjunctiva are normal. ENT: TMs normal, nares patent, oropharynx clear without exudates. Moist mucous membranes. NECK: Normal range of motion, supple without lymphadenopathy or JVD. LUNGS: Breath sounds clear to auscultation bilaterally and equal. No wheezes rales or rhonchi. HEART: Regular rate and rhythm without murmurs, rubs or gallops. ABDOMEN: Soft, normoactive bowel sounds. No tenderness to palpation. No guarding, no rebound. No masses appreciated. EXTREMITIES: Normal range of motion, no pitting or edema. No clubbing or cyanosis. NEUROLOGICAL: Cranial nerves II through XII grossly intact. Normal speech, normal gait. PSYCH: Normal mood, normal affect. SKIN: Warm, Dry, normal turgor, no rashes or lesions noted. Course - Re-evaluation Re-evalutation: 02/22/17 16:45 : The patient's lungs are quite clear. He looks good on exam. After having dialysis, I did stress that we should probably check his electrolytes. They did try to get blood work but they were successful. I did tell him we can send someone else to try and get the blood work to check his electrolytes. He asked me if we could forego the labs and that is having dialysis tomorrow. He stated that he was just uncomfortable when he sleeps because of his neuropathy and would like something for pain. Otherwise, he is going to get dialysis tomorrow morning and he has an appointment with his orthopedic doctor on Thursday. - Vital Signs Vital signs: Temp Pulse Resp BP Pulse Ox 98.1 F 79 14 160/86 H 97 02/22/17 14:37 02/22/17 14:37 02/22/17 14:37 02/22/17 14:37 02/22/17 14:37 - Diagnostic Test Radiology reviewed: Image reviewed, Reports reviewed - X-ray shows no infiltrates or fluid Discharge - Discharge Clinical Impression: Diabetic neuropathy Qualifiers: Diabetes mellitus type: type 1 Diabetes mellitus complication detail: diabetic polyneuropathy Qualified Code(s): E10.42 - Type 1 diabetes mellitus with diabetic polyneuropathy Condition: Stable Disposition: HOME, SELF-CARE Prescriptions: Oxycodone HCl/Acetaminophen [Percocet 10-325 Mg Tablet] 1 each PO [id number] PRN # 30 tablet PRN Reason: Referrals: COSMO LI MD [ACTIVE STAFF] - Follow up as needed
== END 2017-02-22 17:05 | disposition home or self-care (01) ==
LOC: ER 14:32
DX: E10.42 Type 1 diabetes mellitus with diabetic polyneuropathy (principal); J44.9 Chronic obstructive pulmonary disease, unspecified; R06.02 Shortness of breath; I10 Essential (primary) hypertension; Z99.2 Dependence on renal dialysis; Z91.15 Patient's noncompliance with renal dialysis; Z88.8 Allergy status to other drugs, medicaments and biological substances
CPT/HCPCS: 99284; 71020; A9270

== ENCOUNTER 2017-03-02 10:45 | Emergency (ER) | payer MEDICARE ==
[2017-03-02 10:55] VITALS: BP 173/95
--- NOTE | 2017-03-02 12:20 | ER Document Report ---
ED General - General Chief Complaint: Altered Mental Status Stated Complaint: ALTERED MENTAL STATUS Time Seen by Provider: 03/02/17 12:18 Mode of Arrival: Ambulatory Information source: Patient TRAVEL OUTSIDE OF THE [place] IN LAST 30 DAYS: No - HPI Patient complains to provider of: confusion Onset: Other - 3 weeks Onset/Duration: Gradual, Intermittent Quality of pain: No pain Notes: Patient is a 61-year-old male who presents to the emergency room complaining of confusion that he is a been experiencing in the morning for the past 3 weeks, states this morning he woke up and did not know where he was, it took him several hours to feel oriented, he denies any fevers, no nausea, vomiting or diarrhea, no head injury, no pain complaints, he was recently hospitalized proximally 1 month ago, diagnosed with renal failure and started on dialysis, he also had some medication changes around that time, when he was initially hospitalized he was obtunded and determined to have a possible narcotic overdose - Related Data Allergies/Adverse Reactions: lisinopril [Lisinopril] Allergy (Intermediate, Verified 03/02/17 10:52) Unknown reaction Past Medical History - General Information source: Patient - Social History Smoking Status: Never Smoker Chew tobacco use (# tins/day): No Frequency of alcohol use: None Drug Abuse: None Family History: Reviewed & Not Pertinent, Arthritis, DM, Hypertension Patient has suicidal ideation: No Patient has homicidal ideation: No - Past Medical History Cardiac Medical History: Reports: Hx Hypercholesterolemia, Hx Hypertension Pulmonary Medical History: Reports: Hx COPD Denies: Hx Tuberculosis Endocrine Medical History: Reports: Hx Diabetes Mellitus Type 2 Renal/ Medical History: Denies: Hx Peritoneal Dialysis - HEMO Malignancy Medical History: GI Medical History: Musculoskeltal Medical History: Reports Hx Arthritis, Reports Hx Musculoskeletal Deformity, Reports Hx Musculoskeletal Trauma Psychiatric Medical History: Reports: Hx Bipolar Disorder, Hx Depression Traumatic Medical History: Infectious Medical History: Past Surgical History: Reports: Hx Orthopedic Surgery - left knee - Immunizations Immunizations up to date: Yes Hx Diphtheria, Pertussis, Tetanus Vaccination: Yes Hx Pneumococcal Vaccination: 11/13/11 Review of Systems - Review of Systems Constitutional: No symptoms reported EENT: No symptoms reported Cardiovascular: No symptoms reported Respiratory: No symptoms reported Gastrointestinal: No symptoms reported Genitourinary: No symptoms reported Male Genitourinary: No symptoms reported Musculoskeletal: No symptoms reported Skin: No symptoms reported Hematologic/Lymphatic: No symptoms reported Neurological/Psychological: Confusion -: Yes All other systems reviewed and negative Physical Exam - Vital signs Vitals: Temp Pulse Resp BP Pulse Ox 98.4 F 98 20 173/95 H 95 03/02/17 10:52 03/02/17 10:52 03/02/17 10:52 03/02/17 10:52 03/02/17 10:52 Interpretation: Hypertensive - General General appearance: Appears well, Alert - HEENT Head: Normocephalic, Atraumatic Eyes: Normal Pupils: PERRL - Respiratory Respiratory status: No respiratory distress Chest status: Nontender Breath sounds: Normal Chest palpation: Normal - Cardiovascular Rhythm: Regular Heart sounds: Normal auscultation Murmur: No - Abdominal Inspection: Normal Distension: No distension Bowel sounds: Normal Tenderness: Nontender Organomegaly: No organomegaly - Back Back: Normal, Nontender - Extremities General upper extremity: Normal inspection, Nontender, Normal color, Normal ROM , Normal temperature General lower extremity: Normal inspection, Nontender, Normal color, Normal ROM , Normal temperature, Normal weight bearing. No: Radha's sign - Neurological Neuro grossly intact: Yes Cognition: Normal Orientation: AAOx4 [place] Coma Scale Eye Opening: Spontaneous [place] Coma Scale Verbal: Oriented [place] Coma Scale Motor: Obeys Commands Demarcus Coma Scale Total: 15 Speech: Normal Motor strength normal: LUE, RUE, LLE, RLE Sensory: Normal - Psychological Associated symptoms: Normal affect, Normal mood - Skin Skin Temperature: Warm Skin Moisture: Dry Skin Color: Normal Course - Re-evaluation Re-evalutation: 03/02/17 13:17 Patient stating that he needs to leave because he has a dialysis appointment at 130, he is alert and oriented 3 there is been no signs of any confusion since being in the emergency room, however I do not have any laboratory results back at this point in time so patient was permitted to sign out AGAINST MEDICAL ADVICE and that he can go to dialysis and was advised to return to the emergency room after dialysis for further evaluation and care, patient acknowledges understanding and agreement with this plan 03/02/17 14:19 Patient laboratory values are coming back and now after he has signed out AGAINST MEDICAL ADVICE to attend his dialysis treatment, his blood sugar 616 with signs consistent with possible DKA, I attempted to call the [facility] dialysis center in order to have patient come back to the emergency room for appropriate treatment, and message was left for the nurse at the voicemail requesting a return call 03/02/17 14:25 Patient was discussed with Martina nurse at [facility], she stated she will tell patient to return to the emergency room immediately after his dialysis treatment for reevaluation - Vital Signs Vital signs: Temp Pulse Resp BP Pulse Ox 98.4 F 98 20 173/95 H 95 03/02/17 10:52 03/02/17 10:52 03/02/17 10:52 03/02/17 10:52 03/02/17 10:52 - Laboratory Result Diagrams: 03/02/17 12:35 03/02/17 12:35 Laboratory results interpreted by me: 03/02/17 03/02/17 03/02/17 12:35 12:35 12:40 RBC 3.84 L Hgb 10.9 L Hct 34.0 L RDW 15.8 H Sodium 127.6 L Potassium 5.3 H Chloride 90 L Carbon Dioxide 19 L BUN 31 H Creatinine 3.18 H Est GFR ( Amer) 24 L Est GFR (Non-Af Amer) 20 L Glucose 616 H* Calcium 10.4 H Direct Bilirubin 0.5 H Alkaline Phosphatase 133 H Total Protein 9.4 H Urine Glucose (UA) >=500 H
[2017-03-02 13:13] LABS: APPEARANCE,URINE CLEAR; BILIRUBIN,URINE NEGATIVE (NEGATIVE); GLUCOSE, URINE >=500 mg/dL (NEGATIVE); KETONES,URINE NEGATIVE (NEGATIVE); LEUKOCYTE ESTERASE,URINE NEGATIVE (NEGATIVE); NITRITE,URINE NEGATIVE (NEGATIVE); PROTEIN,URINE NEGATIVE (NEGATIVE); UROBILINOGEN,URINE NEGATIVE mg/dL (<2.0)
[2017-03-02 13:14] LABS: ABSOLUTE BASOPHILS # (AUTO) 0.1 10^3/uL (0.0-0.2); ABSOLUTE EOSINOPHILS # (AUTO) 0.1 10^3/uL (0.0-0.6); ABSOLUTE LYMPHOCYTES (AUTO) 1.4 10^3/uL (0.5-4.7); ABSOLUTE MONOCYTES (AUTO) 0.8 10^3/uL (0.1-1.4); ABSOLUTE NEUT (AUTO) 6.5 10^3/uL (1.7-8.2); BASOPHILS % (AUTO) 0.9 % (0-2); EOSINOPHILS % (AUTO) 1.5 % (0-6); HEMOGLOBIN 10.9 g/dL (13.5-17.0); HGB HCT DIFFERENCE -1.3; LYMPHOCYTES % (AUTO) 15.7 % (13-45); MEAN CORPUSCULAR HEMOGLOBIN 28.4 pg (27.0-33.4); MEAN CORPUSCULAR HGB CONC 32.1 g/dL (32.0-36.0); MONOCYTES % (AUTO) 9.3 % (3-13); RED BLOOD COUNT 3.84 10^6/uL (4.35-5.55); RED CELL DISTRIBUTION WIDTH 15.8 % (11.5-14.0); SEGMENTED NEUTROPHILS % (AUTO) 72.6 % (42-78)
[2017-03-02 13:19] LABS: MEAN CORPUSCULAR VOLUME 89 fl (80-97)
[2017-03-02 13:30] LABS: URINE BARBITURATES SCREEN NEGATIVE; URINE METHADONE SCREEN NEGATIVE; URINE OPIATES LOW NEGATIVE; URINE PHENCYCLIDINE SCREEN NEGATIVE
[2017-03-02 13:43] LABS: ALANINE AMINOTRANSFERASE 21 U/L (21-72); ALBUMIN 4.8 g/dL (3.5-5.0); ALKALINE PHOSPHATASE 133 U/L (38-126); ANION GAP 19 (5-19); ASPARTATE AMINO TRANSFERASE 19 U/L (17-59); BILIRUBIN,DIRECT 0.5 mg/dL (0.0-0.4); BILIRUBIN,TOTAL 0.7 mg/dL (0.2-1.3); BLOOD UREA NITROGEN 31 mg/dL (7-20); CALCIUM 10.4 mg/dL (8.4-10.2); CARBON DIOXIDE 19 mmol/L (22-30); CHLORIDE 90 mmol/L (98-107); CREATININE RESULT 3.18 mg/dL (0.52-1.25); POTASSIUM 5.3 mmol/L (3.6-5.0); SODIUM 127.6 mmol/L (137-145); TOTAL PROTEIN 9.4 g/dL (6.3-8.2)
[2017-03-02 13:46] LABS: ALCOHOL < 10 mg/dL (NONE DETECTED)
[2017-03-02 14:15] LABS: GLUCOSE 616 mg/dL (75-110)
== END 2017-03-02 13:17 | disposition left against medical advice (07) ==
LOC: ER 10:45
DX: Z53.9 Procedure and treatment not carried out, unspecified reason (principal); R41.82 Altered mental status, unspecified
CPT/HCPCS: 36415; 80053; 80307; 81001; 82803; 83930; 85025; 87086; 87088; 99284; J1815

== ENCOUNTER 2017-03-02 18:13 | Emergency (ER) | payer MEDICARE ==
--- NOTE | 2017-03-02 18:35 | ER Document Report ---
ED Medical Screen (RME) - General Chief Complaint: High Blood Sugar Stated Complaint: HIGH BLOOD SUGAR Time Seen by Provider: 03/02/17 18:34 Mode of Arrival: Ambulatory Information source: Patient TRAVEL OUTSIDE OF THE [place] IN LAST 30 DAYS: No - HPI Patient complains to provider of: High Blood sugar, confusion Notes: 03/02/17 18:34 Patient is a 61-year-old male who was seen in this emergency room earlier this morning for complaints of confusion is been going on for the past few weeks, he signed out AGAINST MEDICAL ADVICE prior to laboratory studies coming back because he had a dialysis appointment at 130 today, dialysis center was called because his blood sugar came back greater than 600 with other electrolyte abnormalities suggesting possible DKA, patient has come back to the emergency room after his dialysis treatment for reevaluation - Related Data Allergies/Adverse Reactions: lisinopril [Lisinopril] Allergy (Intermediate, Verified 03/02/17 18:20) Unknown reaction Past Medical History - Past Medical History Cardiac Medical History: Reports: Hx Hypercholesterolemia, Hx Hypertension Pulmonary Medical History: Reports: Hx COPD Denies: Hx Tuberculosis Endocrine Medical History: Reports: Hx Diabetes Mellitus Type 2 Renal/ Medical History: Denies: Hx Peritoneal Dialysis - HEMO Malignancy Medical History: GI Medical History: Musculoskeltal Medical History: Reports Hx Arthritis, Reports Hx Musculoskeletal Deformity, Reports Hx Musculoskeletal Trauma Psychiatric Medical History: Reports: Hx Bipolar Disorder, Hx Depression Traumatic Medical History: Infectious Medical History: Past Surgical History: Reports: Hx Orthopedic Surgery - left knee - Immunizations Immunizations up to date: Yes Hx Diphtheria, Pertussis, Tetanus Vaccination: Yes Physical Exam - Vital signs Vitals: Temp Pulse Resp BP Pulse Ox 98.5 F 104 H 16 176/98 H 97 03/02/17 18:20 03/02/17 18:20 03/02/17 18:20 03/02/17 18:20 03/02/17 18:20 Course - Vital Signs Vital signs: Temp Pulse Resp BP Pulse Ox 98.5 F 104 H 16 176/98 H 97 03/02/17 18:20 03/02/17 18:20 03/02/17 18:20 03/02/17 18:20 03/02/17 18:20
[2017-03-02 19:45] LABS: VENOUS BLOOD BASE EXCESS 1.7 mmol/L; VENOUS BLOOD HCO3 27.1 mmol/L (20-32); VENOUS BLOOD PCO2 46.5 mmHg (35-63); VENOUS BLOOD PH 7.38 (7.30-7.42)
[2017-03-02 19:52] LABS: ABSOLUTE BASOPHILS # (AUTO) 0.1 10^3/uL (0.0-0.2); ABSOLUTE EOSINOPHILS # (AUTO) 0.2 10^3/uL (0.0-0.6); ABSOLUTE NEUT (AUTO) 7.1 10^3/uL (1.7-8.2); BASOPHILS % (AUTO) 1.1 % (0-2); EOSINOPHILS % (AUTO) 1.9 % (0-6); HEMATOCRIT 32.2 % (37.9-51.0); HEMOGLOBIN 10.6 g/dL (13.5-17.0); HGB HCT DIFFERENCE -0.4; LYMPHOCYTES % (AUTO) 19.1 % (13-45); MEAN CORPUSCULAR HEMOGLOBIN 28.1 pg (27.0-33.4); MEAN CORPUSCULAR HGB CONC 32.8 g/dL (32.0-36.0); MEAN CORPUSCULAR VOLUME 86 fl (80-97); MONOCYTES % (AUTO) 9.8 % (3-13); RED BLOOD COUNT 3.76 10^6/uL (4.35-5.55); RED CELL DISTRIBUTION WIDTH 15.5 % (11.5-14.0); SEGMENTED NEUTROPHILS % (AUTO) 68.1 % (42-78); WHITE BLOOD COUNT 10.4 10^3/uL (4.0-10.5)
[2017-03-02 20:02] LABS: ALANINE AMINOTRANSFERASE 20 U/L (21-72); ALBUMIN 4.6 g/dL (3.5-5.0); ALKALINE PHOSPHATASE 129 U/L (38-126); ANION GAP 17 (5-19); ASPARTATE AMINO TRANSFERASE 18 U/L (17-59); BILIRUBIN,DIRECT 0.6 mg/dL (0.0-0.4); BILIRUBIN,TOTAL 0.9 mg/dL (0.2-1.3); BLOOD UREA NITROGEN 15 mg/dL (7-20); CALCIUM 9.7 mg/dL (8.4-10.2); CARBON DIOXIDE 25 mmol/L (22-30); CHLORIDE 94 mmol/L (98-107); CREATININE RESULT 1.83 mg/dL (0.52-1.25); GLUCOSE 340 mg/dL (75-110); SODIUM 135.6 mmol/L (137-145); TOTAL PROTEIN 8.8 g/dL (6.3-8.2)
[2017-03-02 20:17] LABS: POTASSIUM 4.2 mmol/L (3.6-5.0)
--- NOTE | 2017-03-02 20:32 | ER Document Report ---
ED General - General Chief Complaint: High Blood Sugar Stated Complaint: HIGH BLOOD SUGAR Time Seen by Provider: 03/02/17 18:34 Mode of Arrival: Ambulatory Notes: Patient is a 61-year-old male with past medical history of chronic kidney disease with dialysis dependence, hypertension, hyperlipidemia, opiate dependence with history of prior overdoses as well as diabetes managed with glipizide who presents after being called back to the emergency department with concerns that his laboratories from earlier today were suggestive of acute diabetic ketoacidosis. Patient did leave to go to dialysis. At time of arrival patient denies any symptoms whatsoever. He states that he has no prior history of diabetic ketoacidosis or severe hypoglycemia in the past. Densities been taking his glipizide as directed although he was on metformin into the last 3 weeks and was pulled off it due to his chronic kidney disease. He denies any associated vomiting, fatigue, headache or passing out. TRAVEL OUTSIDE OF THE [place] IN LAST 30 DAYS: No - HPI Onset: This morning Onset/Duration: Gradual Quality of pain: No pain Severity: None Pain Level: Denies Associated symptoms: None Exacerbated by: Denies Relieved by: Denies - Related Data Allergies/Adverse Reactions: lisinopril [Lisinopril] Allergy (Intermediate, Verified 03/02/17 18:20) Unknown reaction Past Medical History - General Information source: Patient - Social History Smoking Status: Never Smoker Frequency of alcohol use: None Drug Abuse: None Lives with: Spouse/Significant other Family History: Reviewed & Not Pertinent, Arthritis, DM, Hypertension Patient has suicidal ideation: No Patient has homicidal ideation: No - Past Medical History Cardiac Medical History: Reports: Hx Hypercholesterolemia, Hx Hypertension Pulmonary Medical History: Reports: Hx COPD Denies: Hx Tuberculosis Endocrine Medical History: Reports: Hx Diabetes Mellitus Type 2 Renal/ Medical History: Denies: Hx Peritoneal Dialysis - HEMO Malignancy Medical History: GI Medical History: Musculoskeltal Medical History: Reports Hx Arthritis, Reports Hx Musculoskeletal Deformity, Reports Hx Musculoskeletal Trauma Psychiatric Medical History: Reports: Hx Bipolar Disorder, Hx Depression Traumatic Medical History: Infectious Medical History: Past Surgical History: Reports: Hx Orthopedic Surgery - left knee - Immunizations Immunizations up to date: Yes Hx Diphtheria, Pertussis, Tetanus Vaccination: Yes Hx Pneumococcal Vaccination: 11/13/11 Review of Systems - Review of Systems Notes: Constitutional: Negative for fever. HENT: Negative for sore throat. Eyes: Negative for visual changes. Cardiovascular: Negative for chest pain. Respiratory: Negative for shortness of breath. Gastrointestinal: Negative for abdominal pain, vomiting or diarrhea. Genitourinary: Negative for dysuria. Musculoskeletal: Negative for back pain. Skin: Negative for rash. Neurological: Negative for headaches, weakness or numbness. 10 point ROS negative except as marked above and in HPI. Physical Exam - Vital signs Vitals: Temp Pulse Resp BP Pulse Ox 98.5 F 104 H 16 176/98 H 97 03/02/17 18:20 03/02/17 18:20 03/02/17 18:20 03/02/17 18:20 03/02/17 18:20 Interpretation: Tachycardic Notes: PHYSICAL EXAMINATION: GENERAL: Well-appearing, well-nourished and in no acute distress. HEAD: Atraumatic, normocephalic. EYES: Pupils equal round and reactive to light, extraocular movements intact, sclera anicteric, conjunctiva are normal. ENT: nares patent, oropharynx clear without exudates. Moist mucous membranes. NECK: Normal range of motion, supple without lymphadenopathy LUNGS: Breath sounds clear to auscultation bilaterally and equal. No wheezes rales or rhonchi. HEART: Regular rate and rhythm without murmurs ABDOMEN: Soft, nontender, normoactive bowel sounds. No guarding, no rebound. No masses appreciated. EXTREMITIES: Normal range of motion, no pitting or edema. No cyanosis. NEUROLOGICAL: No focal neurological deficits. Moves all extremities spontaneously and on command. PSYCH: Normal mood, normal affect. SKIN: Warm, Dry, normal turgor, no rashes or lesions noted. Course - Re-evaluation Re-evalutation: 03/02/17 20:37 Presentation of asymptomatic hyperglycemia. There is no evidence of HHS or diabetic ketoacidosis on laboratories or based on clinical history. Patient's vitals are within normal limits. They deny any acute focal complaints. Patient was given a small dose of insulin. No focal infectious symptoms to suggest infectious etiology for hypoglycemia. Patient does have primary care follow-up. Patient was instructed to continue taking their glipizide and advised they will likely need to increase dietary modification and may also need medication changes. At this time will discharge with return precautions and follow-up recommendations. Verbal discharge instructions given a the bedside and opportunity for questions given. Medication warnings reviewed. Patient is in agreement with this plan and has verbalized understanding of return precautions and the need for primary care follow-up in the next 24-72 hours. - Vital Signs Vital signs: Temp Pulse Resp BP Pulse Ox 98.1 F 104 H 14 166/93 H 95 03/02/17 21:05 03/02/17 18:20 03/02/17 21:01 03/02/17 21:01 03/02/17 21:01 - Laboratory Result Diagrams: 03/02/17 19:37 03/02/17 19:37 Laboratory results interpreted by me: 03/02/17 03/02/17 19:37 19:37 RBC 3.76 L Hgb 10.6 L Hct 32.2 L RDW 15.5 H Sodium 135.6 L Chloride 94 L Creatinine 1.83 H Est GFR ( Amer) 45 L Est GFR (Non-Af Amer) 38 L Glucose 340 H Direct Bilirubin 0.6 H ALT 20 L Alkaline Phosphatase 129 H Total Protein 8.8 H Discharge - Discharge Clinical Impression: Hyperglycemia Chronic kidney disease Qualifiers: Chronic kidney disease stage: unspecified stage Qualified Code(s): N18.9 - Chronic kidney disease, unspecified Condition: Good Disposition: HOME, SELF-CARE Additional Instructions: You need to followup urgently with your primary care doctor as your blood sugars were dangerously high today. You did not have any evidence of a dangerous condition associated with these blood sugars at this time. However, it is very important that you get your blood sugars under control. Please take all of your medications exactly as directed. You should avoid foods that are high in carbohydrates and sugary foods. Losing weight will also help to better control your blood sugars. Please return to emergency department immediately if you develop weakness, persistent vomiting, confusion, or any other symptoms that are concerning to you. Referrals: DEEDEE RIVERA PA [Primary Care Provider] - Follow up in 3-5 days
[2017-03-02] MEDS ORDERED: INSULIN LISPRO 100 UNIT/ML 3 ML VIAL SUBCUT ONE (20:37)
[2017-03-02 21:16] VITALS: BP 166/93
== END 2017-03-02 21:10 | disposition home or self-care (01) ==
LOC: ER 18:13
DX: E11.22 Type 2 diabetes mellitus with diabetic chronic kidney disease (principal); E11.65 Type 2 diabetes mellitus with hyperglycemia; I12.9 Hypertensive chronic kidney disease with stage 1 through stage 4 chronic kidney disease, or unspecified chronic kidney disease; N18.9 Chronic kidney disease, unspecified
CPT/HCPCS: 99284; 36415; 83930; 85025; 80053; 82803; A9270; J1815

== ENCOUNTER → 2017-03-18 | Outpatient (CLI) | payer MEDICARE ==
[2017-03-18 09:45] LABS: ANION GAP 16 (5-19); BLOOD UREA NITROGEN 35 mg/dL (7-20); CALCIUM 9.7 mg/dL (8.4-10.2); CARBON DIOXIDE 18 mmol/L (22-30); CHLORIDE 106 mmol/L (98-107); CREATININE RESULT 1.98 mg/dL (0.52-1.25); GLUCOSE 259 mg/dL (75-110); POTASSIUM 4.5 mmol/L (3.6-5.0); SODIUM 139.5 mmol/L (137-145)
== END ==
LOC: OD 08:42
PROVIDERS: ATTEND Internal Medicine Nephrology
DX: N18.5 Chronic kidney disease, stage 5 (principal)
CPT/HCPCS: 36415; 80048

== ENCOUNTER → 2017-03-26 | Outpatient (CLI) | payer MEDICARE ==
[2017-03-26 08:28] LABS: APPEARANCE,URINE CLEAR; BILIRUBIN,URINE NEGATIVE (NEGATIVE); GLUCOSE, URINE >=500 mg/dL (NEGATIVE); KETONES,URINE NEGATIVE (NEGATIVE); LEUKOCYTE ESTERASE,URINE NEGATIVE (NEGATIVE); NITRITE,URINE NEGATIVE (NEGATIVE); PROTEIN,URINE NEGATIVE (NEGATIVE); URINE SPECIFIC GRAVITY 1.015; UROBILINOGEN,URINE NEGATIVE mg/dL (<2.0)
[2017-03-26 08:38] LABS: ABSOLUTE BASOPHILS # (AUTO) 0.1 10^3/uL (0.0-0.2); ABSOLUTE EOSINOPHILS # (AUTO) 0.3 10^3/uL (0.0-0.6); ABSOLUTE LYMPHOCYTES (AUTO) 2.4 10^3/uL (0.5-4.7); ABSOLUTE MONOCYTES (AUTO) 0.4 10^3/uL (0.1-1.4); BASOPHILS % (AUTO) 1.1 % (0-2); EOSINOPHILS % (AUTO) 4.7 % (0-6); HEMATOCRIT 32.7 % (37.9-51.0); HEMOGLOBIN 10.6 g/dL (13.5-17.0); HGB HCT DIFFERENCE -0.9; LYMPHOCYTES % (AUTO) 39.7 % (13-45); MEAN CORPUSCULAR HEMOGLOBIN 28.6 pg (27.0-33.4); MEAN CORPUSCULAR HGB CONC 32.5 g/dL (32.0-36.0); MEAN CORPUSCULAR VOLUME 88 fl (80-97); MONOCYTES % (AUTO) 6.5 % (3-13); RED BLOOD COUNT 3.71 10^6/uL (4.35-5.55); RED CELL DISTRIBUTION WIDTH 15.1 % (11.5-14.0); WHITE BLOOD COUNT 6.2 10^3/uL (4.0-10.5)
[2017-03-26 08:52] LABS: BLOOD UREA NITROGEN 33 mg/dL (7-20); CALCIUM 9.5 mg/dL (8.4-10.2); CREATININE RESULT 2.03 mg/dL (0.52-1.25); GLUCOSE 314 mg/dL (75-110)
[2017-03-26 08:53] LABS: ALBUMIN 4.5 g/dL (3.5-5.0); ANION GAP 16 (5-19); CARBON DIOXIDE 22 mmol/L (22-30); CHLORIDE 100 mmol/L (98-107); PHOSPHORUS 5.3 mg/dL (2.5-4.5); POTASSIUM 5.1 mmol/L (3.6-5.0); SODIUM 138.3 mmol/L (137-145)
[2017-03-26 09:03] LABS: URINE CREATININE 95.9 mg/dL (22-328); URINE PROTEIN 10.2 mg/dL (<12)
[2017-03-27 07:19] LABS: VITAMIN D 25-HYDROXY 28.8 ng/mL (30.0-100.0)
== END ==
LOC: OD 07:05
PROVIDERS: ATTEND Internal Medicine Nephrology
DX: N18.3 Chronic kidney disease, stage 3 (moderate) (principal); D63.1 Anemia in chronic kidney disease
CPT/HCPCS: 36415; 80048; 81001; 82040; 82306; 82570; 83970; 84100; 84156; 85025

== ENCOUNTER → 2017-05-25 | Outpatient (CLI) | payer MEDICARE ==
[2017-05-25 09:42] LABS: ABSOLUTE BASOPHILS # (AUTO) 0.1 10^3/uL (0.0-0.2); ABSOLUTE EOSINOPHILS # (AUTO) 0.3 10^3/uL (0.0-0.6); ABSOLUTE LYMPHOCYTES (AUTO) 1.8 10^3/uL (0.5-4.7); ABSOLUTE MONOCYTES (AUTO) 0.6 10^3/uL (0.1-1.4); BASOPHILS % (AUTO) 1.3 % (0-2); EOSINOPHILS % (AUTO) 4.4 % (0-6); HEMATOCRIT 32.7 % (37.9-51.0); HEMOGLOBIN 10.8 g/dL (13.5-17.0); HGB HCT DIFFERENCE -0.3; LYMPHOCYTES % (AUTO) 31.8 % (13-45); MEAN CORPUSCULAR HEMOGLOBIN 29.5 pg (27.0-33.4); MEAN CORPUSCULAR HGB CONC 33.1 g/dL (32.0-36.0); MEAN CORPUSCULAR VOLUME 89 fl (80-97); MONOCYTES % (AUTO) 10.5 % (3-13); RED BLOOD COUNT 3.67 10^6/uL (4.35-5.55); RED CELL DISTRIBUTION WIDTH 13.6 % (11.5-14.0); WHITE BLOOD COUNT 5.7 10^3/uL (4.0-10.5)
[2017-05-25 09:56] LABS: ANION GAP 14 (5-19); BLOOD UREA NITROGEN 27 mg/dL (7-20); CALCIUM 9.4 mg/dL (8.4-10.2); CARBON DIOXIDE 21 mmol/L (22-30); CHLORIDE 105 mmol/L (98-107); CREATININE RESULT 2.14 mg/dL (0.52-1.25); GLUCOSE 213 mg/dL (75-110); PHOSPHORUS 4.1 mg/dL (2.5-4.5); POTASSIUM 4.7 mmol/L (3.6-5.0); SODIUM 140.3 mmol/L (137-145)
== END ==
LOC: OD 08:24
PROVIDERS: ATTEND Internal Medicine Nephrology
DX: N18.3 Chronic kidney disease, stage 3 (moderate) (principal); D63.1 Anemia in chronic kidney disease; E83.39 Other disorders of phosphorus metabolism
CPT/HCPCS: 36415; 80048; 84100; 85025

== ENCOUNTER 2017-06-22 18:41 | Emergency (ER) | payer MEDICARE ==
[2017-06-22 18:58] VITALS: BP 147/71
--- NOTE | 2017-06-22 20:29 | ER Document Report ---
ED Medical Screen (RME) - General Chief Complaint: Leg Swelling Stated Complaint: PAIN SWELLING IN LEG Time Seen by Provider: 06/22/17 20:24 Notes: 61 year old male, chief complaint of right leg swelling and pain for the past 3 days without improving. No hx of DVT/PE, denies injury, denies family history of DVT, denies smoking, recent travel, recent surgery. He also reports dyspnea mainly when lying flat but also on exertion. He denies chest pain, but states he is getting winded more when walking. He denies cough or fever. PMH HTN, DMII. TRAVEL OUTSIDE OF THE [place] IN LAST 30 DAYS: No - Related Data Allergies/Adverse Reactions: lisinopril [Lisinopril] Allergy (Intermediate, Verified 03/02/17 18:20) Unknown reaction Past Medical History - Past Medical History Cardiac Medical History: Reports: Hx Hypercholesterolemia, Hx Hypertension Pulmonary Medical History: Reports: Hx COPD Denies: Hx Tuberculosis Endocrine Medical History: Reports: Hx Diabetes Mellitus Type 2 Renal/ Medical History: Denies: Hx Peritoneal Dialysis Malignancy Medical History: GI Medical History: Musculoskeltal Medical History: Reports Hx Arthritis, Reports Hx Musculoskeletal Deformity, Reports Hx Musculoskeletal Trauma Psychiatric Medical History: Reports: Hx Bipolar Disorder, Hx Depression Traumatic Medical History: Infectious Medical History: Past Surgical History: Reports: Hx Orthopedic Surgery - left knee - Immunizations Immunizations up to date: Yes Hx Diphtheria, Pertussis, Tetanus Vaccination: Yes Physical Exam - Vital signs Vitals: Temp Pulse Resp BP Pulse Ox 97.8 F 79 16 147/71 H 96 06/22/17 18:55 06/22/17 18:55 06/22/17 18:55 06/22/17 18:55 06/22/17 18:55 - Extremities General lower extremity: Other - slight swelling of the right distal leg/ankle/ foot, no noted pain, negative Radha sign Course - Vital Signs Vital signs: Temp Pulse Resp BP Pulse Ox 97.8 F 79 16 147/71 H 96 06/22/17 18:55 06/22/17 18:55 06/22/17 18:55 06/22/17 18:55 06/22/17 18:55
[2017-06-22 21:07] LABS: ABSOLUTE BASOPHILS # (AUTO) 0.1 10^3/uL (0.0-0.2); ABSOLUTE EOSINOPHILS # (AUTO) 0.4 10^3/uL (0.0-0.6); ABSOLUTE LYMPHOCYTES (AUTO) 1.8 10^3/uL (0.5-4.7); ABSOLUTE MONOCYTES (AUTO) 0.9 10^3/uL (0.1-1.4); ABSOLUTE NEUT (AUTO) 5.2 10^3/uL (1.7-8.2); BASOPHILS % (AUTO) 1.1 % (0-2); EOSINOPHILS % (AUTO) 4.8 % (0-6); HEMATOCRIT 33.2 % (37.9-51.0); HEMOGLOBIN 11.3 g/dL (13.5-17.0); HGB HCT DIFFERENCE 0.7; LYMPHOCYTES % (AUTO) 20.9 % (13-45); MEAN CORPUSCULAR HEMOGLOBIN 29.2 pg (27.0-33.4); MEAN CORPUSCULAR VOLUME 86 fl (80-97); MONOCYTES % (AUTO) 11.3 % (3-13); RED BLOOD COUNT 3.87 10^6/uL (4.35-5.55); RED CELL DISTRIBUTION WIDTH 12.8 % (11.5-14.0); SEGMENTED NEUTROPHILS % (AUTO) 61.9 % (42-78); WHITE BLOOD COUNT 8.4 10^3/uL (4.0-10.5)
[2017-06-22 21:30] LABS: ALANINE AMINOTRANSFERASE 34 U/L (21-72); ALBUMIN 4.5 g/dL (3.5-5.0); ALKALINE PHOSPHATASE 89 U/L (38-126); ANION GAP 15 (5-19); ASPARTATE AMINO TRANSFERASE 23 U/L (17-59); BILIRUBIN,DIRECT 0.4 mg/dL (0.0-0.4); BILIRUBIN,TOTAL 0.6 mg/dL (0.2-1.3); BLOOD UREA NITROGEN 29 mg/dL (7-20); CALCIUM 9.6 mg/dL (8.4-10.2); CARBON DIOXIDE 23 mmol/L (22-30); CHLORIDE 100 mmol/L (98-107); CREATINE KINASE 290 U/L (55-170); CREATININE RESULT 2.19 mg/dL (0.52-1.25); GLUCOSE 387 mg/dL (75-110); POTASSIUM 4.9 mmol/L (3.6-5.0); SODIUM 138.4 mmol/L (137-145); TOTAL PROTEIN 8.2 g/dL (6.3-8.2)
--- NOTE | 2017-06-22 21:36 | RADIOLOGY REPORT (SQ) ---
EXAM DESCRIPTION: CHEST PA/LAT COMPLETED DATE/TIME: 06/22/2017 9:18 pm REASON FOR STUDY: orthopnea, dyspnea on exertion COMPARISON: 02/22/2017 EXAM PARAMETERS: NUMBER OF VIEWS: two views TECHNIQUE: Digital Frontal and Lateral radiographic views of the chest acquired. RADIATION DOSE: NA LIMITATIONS: none FINDINGS: LUNGS AND PLEURA: No opacities, masses or pneumothorax. No pleural effusion. MEDIASTINUM AND HILAR STRUCTURES: No masses or contour abnormalities. HEART AND VASCULAR STRUCTURES: Heart normal size. No evidence for failure. BONES: No acute findings. HARDWARE: None in the chest. OTHER: No other significant finding. IMPRESSION: NO SIGNIFICANT RADIOGRAPHIC FINDING IN THE CHEST. TECHNICAL DOCUMENTATION: JOB ID: [id number] [employer]- All Rights Reserved
[2017-06-22 21:42] LABS: CREATINE KINASE MB 1.84 ng/mL (<4.55)
[2017-06-22 21:43] LABS: TROPONIN I < 0.012 ng/mL
--- NOTE | 2017-06-22 21:57 | RADIOLOGY REPORT (SQ) ---
EXAM DESCRIPTION: VENOUS UNILATERAL LOWER COMPLETED DATE/TIME: 06/22/2017 9:43 pm REASON FOR STUDY: right leg swelling and pain COMPARISON: None. TECHNIQUE: Dynamic and static sheikh scale and color images acquired of the right leg venous system. S elected spectral images acquired with additional compression and augmentation maneuvers. The contrala teral common femoral vein and saphenofemoral junction were also imaged. Images stored on PACS. LIMITATIONS: None. FINDINGS: COMMON FEMORAL: Normal phasicity, compression and augmentation. No visualized echogenic ma terial on sheikh scale. No defects on color images. FEMORAL: Normal compression and augmentation. No visualized echogenic material on sheikh scale. No defe cts on color images. POPLITEAL: Normal compression, augmentation. No visualized echogenic material on sheikh scale. No defec ts on color images. CALF VESSELS: Normal compression, augmentation. No visualized echogenic material on sheikh scale. No de fects on color images. GSV and SSV: Normal compression, augmentation. No visualized echogenic material on sheikh scale. No def ects on color images. ANY DEEP VENOUS INSUFFICIENCY: Not evaluated. ANY EVIDENCE OF POPLITEAL CYST: No. OTHER: No other significant finding. CONTRALATERAL COMMON FEMORAL VEIN AND SAPHENOFEMORAL JUNCTION: Normal phasicity, compression and augmentation. No visualized echogenic material on sheikh scale. No de fects on color images. IMPRESSION: NO EVIDENCE DVT OR SVT IN THE RIGHT LEG. TECHNICAL DOCUMENTATION: JOB ID: [id number] [employer]- All Rights Reserved
--- NOTE | 2017-06-23 01:49 | ER Document Report ---
ED General - General Chief Complaint: Leg Swelling Stated Complaint: PAIN SWELLING IN LEG Time Seen by Provider: 06/22/17 20:24 Notes: 61 year old male, chief complaint of right leg swelling and pain for the past 3 days without improving. No hx of DVT/PE, denies injury, denies family history of DVT, denies smoking, recent travel, recent surgery. He also reports dyspnea mainly when lying flat but also on exertion. He denies chest pain, but states he is getting winded more when walking. He denies cough or fever. PMH HTN, DMII. TRAVEL OUTSIDE OF THE [place] IN LAST 30 DAYS: No - Related Data Allergies/Adverse Reactions: lisinopril [Lisinopril] Allergy (Intermediate, Verified 03/02/17 18:20) Unknown reaction Past Medical History - General Information source: Patient - Social History Smoking Status: Never Smoker Frequency of alcohol use: None Drug Abuse: None Lives with: Family Family History: Reviewed & Not Pertinent, Arthritis, DM, Hypertension Patient has suicidal ideation: No Patient has homicidal ideation: No - Past Medical History Cardiac Medical History: Reports: Hx Hypercholesterolemia, Hx Hypertension Pulmonary Medical History: Reports: Hx COPD Denies: Hx Tuberculosis Endocrine Medical History: Reports: Hx Diabetes Mellitus Type 2 Renal/ Medical History: Denies: Hx Peritoneal Dialysis Malignancy Medical History: GI Medical History: Musculoskeltal Medical History: Reports Hx Arthritis, Reports Hx Musculoskeletal Deformity, Reports Hx Musculoskeletal Trauma Psychiatric Medical History: Reports: Hx Bipolar Disorder, Hx Depression Traumatic Medical History: Infectious Medical History: Past Surgical History: Reports: Hx Orthopedic Surgery - left knee - Immunizations Immunizations up to date: Yes Hx Diphtheria, Pertussis, Tetanus Vaccination: Yes Hx Pneumococcal Vaccination: 11/13/11 Review of Systems - Review of Systems Constitutional: No symptoms reported EENT: No symptoms reported Cardiovascular: See HPI Respiratory: See HPI Gastrointestinal: No symptoms reported Genitourinary: No symptoms reported Male Genitourinary: No symptoms reported Musculoskeletal: See HPI Skin: No symptoms reported Hematologic/Lymphatic: No symptoms reported Neurological/Psychological: No symptoms reported Physical Exam - Vital signs Vitals: Temp Pulse Resp BP Pulse Ox 97.8 F 79 16 147/71 H 96 06/22/17 18:55 06/22/17 18:55 06/22/17 18:55 06/22/17 18:55 06/22/17 18:55 Interpretation: Normal - General General appearance: Appears well, Alert In distress: None - HEENT Head: Normocephalic, Atraumatic Eyes: Normal Pupils: PERRL - Respiratory Respiratory status: No respiratory distress Chest status: Nontender Breath sounds: Normal. No: Decreased air movement, Wheezing Chest palpation: Normal - Cardiovascular Rhythm: Regular. No: Tachycardia Heart sounds: Normal auscultation, S1 appreciated, S2 appreciated Murmur: No - Abdominal Inspection: Normal Distension: No distension Bowel sounds: Normal Tenderness: Nontender. No: Tender, Guarding Organomegaly: No organomegaly - Back Back: Normal, Nontender - Extremities General upper extremity: Normal inspection, Nontender, Normal color, Normal ROM , Normal temperature General lower extremity: Other - There is a small amount of swelling of the right lower leg and ankle compared to the left, negative Homans sign, no pitting edema, no erythema, normal range of motion of the ankle, knee, hip. Normal distal neurovascular exam. - Neurological Neuro grossly intact: Yes Cognition: Normal Orientation: AAOx4 Demarcus Coma Scale Eye Opening: Spontaneous Cuney Coma Scale Verbal: Oriented Cuney Coma Scale Motor: Obeys Commands Demarcus Coma Scale Total: 15 Speech: Normal Motor strength normal: LUE, RUE, LLE, RLE Sensory: Normal - Psychological Associated symptoms: Normal affect, Normal mood - Skin Skin Temperature: Warm Skin Moisture: Dry Skin Color: Normal Course - Re-evaluation Re-evalutation: EKG with no significant change from prior. CBC, chemistry at patient's baseline. Cardiac enzyme is not elevated. The venous Doppler of the right lower extremity is negative. Chest x-ray is unremarkable. BNP is not elevated. Patient is still in the waiting room, has not received a room, he approached me and asked if he could leave. Patient was brought back in and reevaluated, he clarifies that his breathing symptoms are intermittent and have been going on for a very long time. He denies that there is any change with his breathing. The only changes his leg. He requests to leave because of his negative Doppler. I asked if you would be willing to stay for further evaluation because I do not know the source of his breathing symptoms but he declined. He does not have tachycardia, hypotension, tachypnea, or evidence of PE. No chest pain or evidence of ACS. Patient states that he wants to follow-up with his primary for additional evaluation for his symptoms, he states that he will return if he worsens in any way, he denies any current symptoms other than mild swelling of the right leg which is minimal on exam. Patient discharged with return precautions. - Vital Signs Vital signs: Temp Pulse Resp BP Pulse Ox 97.8 F 79 16 147/71 H 96 06/22/17 18:55 06/22/17 18:55 06/22/17 18:55 06/22/17 18:55 06/22/17 18:55 - Laboratory Result Diagrams: 06/22/17 20:55 06/22/17 20:55 Laboratory results interpreted by me: 06/22/17 06/22/17 20:55 20:55 RBC 3.87 L Hgb 11.3 L Hct 33.2 L BUN 29 H Creatinine 2.19 H Est GFR ( Amer) 37 L Est GFR (Non-Af Amer) 31 L Glucose 387 H Creatine Kinase 290 H Discharge - Discharge Clinical Impression: Right leg swelling Condition: Stable Disposition: HOME, SELF-CARE Additional Instructions: The ultrasound of your leg does not show a blood clot. Your workup does not show any concerning findings with your chest x-ray, blood, and with your examination. I recommend that he wear a compression stocking from a local drugstore for the swelling in your leg, elevate your leg, follow-up closely with your primary care provider for additional evaluation and management. Return to the emergency department for any concerning or worsening symptoms including increased swelling, redness, fever, chest pain, etc. Referrals: THERESA IQBAL DPM [Primary Care Provider] - Follow up as needed
--- NOTE | 2017-06-23 08:09 | EKG REPORT ---
SEVERITY:- NORMAL ECG - SINUS RHYTHM : Confirmed by: Giacomo Jensen MD 23-Jun-2017 08:08:52
== END 2017-06-23 01:50 | disposition home or self-care (01) ==
LOC: ER 18:41
DX: M79.89 Other specified soft tissue disorders (principal); J44.9 Chronic obstructive pulmonary disease, unspecified; R06.09 Other forms of dyspnea; I10 Essential (primary) hypertension; E11.9 Type 2 diabetes mellitus without complications
CPT/HCPCS: 36415; 71020; 80053; 82550; 82553; 83880; 84484; 85025; 93005; 93010; 93971; 99284

== ENCOUNTER → 2017-08-24 | Outpatient (CLI) | payer MEDICARE ==
[2017-08-24 08:29] LABS: ABSOLUTE BASOPHILS # (AUTO) 0.1 10^3/uL (0.0-0.2); ABSOLUTE EOSINOPHILS # (AUTO) 0.3 10^3/uL (0.0-0.6); ABSOLUTE MONOCYTES (AUTO) 0.6 10^3/uL (0.1-1.4); ABSOLUTE NEUT (AUTO) 2.4 10^3/uL (1.7-8.2); BASOPHILS % (AUTO) 1.2 % (0-2); EOSINOPHILS % (AUTO) 5.9 % (0-6); HEMATOCRIT 34.7 % (37.9-51.0); HEMOGLOBIN 11.4 g/dL (13.5-17.0); HGB HCT DIFFERENCE -0.5; MEAN CORPUSCULAR HEMOGLOBIN 28.3 pg (27.0-33.4); MEAN CORPUSCULAR HGB CONC 32.8 g/dL (32.0-36.0); MEAN CORPUSCULAR VOLUME 86 fl (80-97); RED BLOOD COUNT 4.02 10^6/uL (4.35-5.55); RED CELL DISTRIBUTION WIDTH 13.2 % (11.5-14.0); SEGMENTED NEUTROPHILS % (AUTO) 43.9 % (42-78); WHITE BLOOD COUNT 5.4 10^3/uL (4.0-10.5)
[2017-08-24 08:44] LABS: APPEARANCE,URINE CLEAR; BILIRUBIN,URINE NEGATIVE (NEGATIVE); GLUCOSE, URINE NEGATIVE (NEGATIVE); KETONES,URINE NEGATIVE (NEGATIVE); LEUKOCYTE ESTERASE,URINE NEGATIVE (NEGATIVE); NITRITE,URINE NEGATIVE (NEGATIVE); PROTEIN,URINE NEGATIVE (NEGATIVE); URINE SPECIFIC GRAVITY 1.012; UROBILINOGEN,URINE NEGATIVE mg/dL (<2.0)
[2017-08-24 08:51] LABS: ANION GAP 15 (5-19); BLOOD UREA NITROGEN 16 mg/dL (7-20); CARBON DIOXIDE 24 mmol/L (22-30); CHLORIDE 105 mmol/L (98-107); CREATININE RESULT 2.08 mg/dL (0.52-1.25); GLUCOSE 197 mg/dL (75-110); POTASSIUM 4.8 mmol/L (3.6-5.0)
[2017-08-25 11:40] LABS: MICROALBUMIN URINE 11.7 ug/mL (Not Estab.)
== END ==
LOC: OD 07:18
PROVIDERS: ATTEND Internal Medicine Nephrology
DX: I12.9 Hypertensive chronic kidney disease with stage 1 through stage 4 chronic kidney disease, or unspecified chronic kidney disease (principal); N18.3 Chronic kidney disease, stage 3 (moderate); N18.9 Chronic kidney disease, unspecified
CPT/HCPCS: 36415; 80048; 81001; 82043; 82570; 82728; 83540; 83550; 85025

== ENCOUNTER → 2017-12-23 | Outpatient (CLI) | payer MEDICARE ==
[2017-12-23 09:21] LABS: ABSOLUTE BASOPHILS # (AUTO) 0.1 10^3/uL (0.0-0.2); ABSOLUTE EOSINOPHILS # (AUTO) 0.2 10^3/uL (0.0-0.6); ABSOLUTE LYMPHOCYTES (AUTO) 2.1 10^3/uL (0.5-4.7); ABSOLUTE MONOCYTES (AUTO) 0.8 10^3/uL (0.1-1.4); ABSOLUTE NEUT (AUTO) 5.7 10^3/uL (1.7-8.2); BASOPHILS % (AUTO) 0.7 % (0-2); EOSINOPHILS % (AUTO) 2.3 % (0-6); HEMATOCRIT 34.4 % (37.9-51.0); HEMOGLOBIN 11.6 g/dL (13.5-17.0); LYMPHOCYTES % (AUTO) 24.1 % (13-45); MEAN CORPUSCULAR HEMOGLOBIN 28.2 pg (27.0-33.4); MEAN CORPUSCULAR HGB CONC 33.7 g/dL (32.0-36.0); MEAN CORPUSCULAR VOLUME 84 fl (80-97); MONOCYTES % (AUTO) 8.7 % (3-13); PLATELET COUNT 387 10^3/uL (150-450); RED BLOOD COUNT 4.12 10^6/uL (4.35-5.55); RED CELL DISTRIBUTION WIDTH 13.3 % (11.5-14.0); SEGMENTED NEUTROPHILS % (AUTO) 64.2 % (42-78); TOTAL CELLS COUNTED % (AUTO) 100 %; WHITE BLOOD COUNT 8.9 10^3/uL (4.0-10.5)
[2017-12-23 09:33] LABS: ALBUMIN 4.3 g/dL (3.5-5.0); ANION GAP 19 (5-19); BLOOD UREA NITROGEN 26 mg/dL (7-20); CARBON DIOXIDE 19 mmol/L (22-30); CHLORIDE 93 mmol/L (98-107); GLUCOSE 357 mg/dL (75-110); PHOSPHORUS 4.4 mg/dL (2.5-4.5); POTASSIUM 4.5 mmol/L (3.6-5.0)
[2017-12-23 09:41] LABS: APPEARANCE,URINE CLEAR; BILIRUBIN,URINE NEGATIVE (NEGATIVE); COLOR,URINE YELLOW; GLUCOSE, URINE >=500 mg/dL (NEGATIVE); KETONES,URINE NEGATIVE (NEGATIVE); LEUKOCYTE ESTERASE,URINE NEGATIVE (NEGATIVE); NITRITE,URINE NEGATIVE (NEGATIVE); PROTEIN,URINE NEGATIVE (NEGATIVE); URINE SPECIFIC GRAVITY 1.011; UROBILINOGEN,URINE NEGATIVE mg/dL (<2.0)
[2017-12-24 11:40] LABS: CREATININE URINE 166.9 mg/dL (Not Estab.); MICROALBUMIN URINE 37.1 ug/mL (Not Estab.)
== END ==
LOC: OD 08:23
PROVIDERS: ATTEND Internal Medicine Nephrology
DX: N18.3 Chronic kidney disease, stage 3 (moderate) (principal); D63.1 Anemia in chronic kidney disease; E83.39 Other disorders of phosphorus metabolism; E55.9 Vitamin D deficiency, unspecified
CPT/HCPCS: 36415; 80048; 81001; 82040; 82043; 82306; 82570; 83970; 84100; 85025

== ENCOUNTER 2018-02-11 17:59 | Emergency (ER) | payer MEDICARE ==
[2018-02-11 18:06] VITALS: BP 139/75
--- NOTE | 2018-02-11 18:31 | ER Document Report ---
ED Extremity Problem, Lower - General Chief Complaint: Leg Pain Stated Complaint: LEG PAIN Time Seen by Provider: 02/11/18 18:13 Notes: Chief complaint: Pain over lower extremities History of complain:( obtained from----patient) 62 years old male with a history of advanced diabetes with peripheral neuropathy presents today with pain running from the feet all the way up to the thigh, as well as pain over both hands. Having difficulty in walking, tending to fall, and gastropathy. No fever chills or other constitutional symptoms Onset: Gradual long-standing Duration: Long-standing Severity: Moderate Quality: Like electric shocks Context: Diabetic peripheral neuropathy Exacerbating factor and relieving factors: REVIEW OF SYSTEMS: CONSTITUTIONAL : Denies fever, chills, or sweats. Denies recent illness. EENT: Denies eye, ear, throat, or mouth pain or symptoms. Denies nasal or sinus congestion or discharge. Denies throat, tongue, or mouth swelling or difficulty swallowing. CARDIOVASCULAR: Denies chest pain. Denies palpitations or racing or irregular heart beat. Denies ankle edema. RESPIRATORY: Denies cough, cold, or chest congestion. Denies shortness of breath, difficulty breathing, or wheezing. GASTROINTESTINAL: Denies distention. Denies nausea, vomiting, or diarrhea. Denies blood in vomitus, stools, or per rectum. Denies black, tarry stools. Denies constipation. GENITOURINARY: Denies difficulty urinating, painful urination, burning, frequency, blood in urine, or discharge. FEMALE GENITOURINARY: Denies vaginal bleeding, heavy or abnormal periods, irregular periods. Denies vaginal discharge or odor. MUSCULOSKELETAL: Denies back or neck pain or stiffness. Denies joint pain or swelling. SKIN: Denies rash, lesions or sores. HEMATOLOGIC : Denies easy bruising or bleeding. LYMPHATIC: Denies swollen, enlarged glands. NEUROLOGICAL: Denies confusion or altered mental status. Denies passing out or loss of consciousness. Denies dizziness or lightheadedness. Denies headache. PSYCHIATRIC: Denies anxiety or stress. Denies depression, suicidal ideation, or homicidal ideation. ALL OTHER SYSTEMS REVIEWED AND NEGATIVE. PHYSICAL EXAMINATION: GENERAL: Well-appearing, well-nourished and in no acute distress. HEAD: Atraumatic, normocephalic. EYES: Pupils equal round and reactive to light, extraocular movements intact, conjunctiva are normal. ENT: Nares patent, oropharynx clear without exudates. Moist mucous membranes. NECK: Normal range of motion, supple without lymphadenopathy LUNGS: Breath sounds clear to auscultation bilaterally and equal. No wheezes rales or rhonchi. HEART: Regular rate and rhythm without murmurs ABDOMEN: Soft, nontender, nondistended abdomen. No guarding, no rebound. No masses appreciated. Examination of genitals-deferred Musculoskeletal: Normal range of motion, no pitting or edema. No cyanosis. NEUROLOGICAL: Peripheral neuropathy involving the lower extremity. Wide-based gait, no focal neurological deficit PSYCH: Normal mood, normal affect. SKIN: Warm, Dry, normal turgor, no rashes or lesions noted. Dictation was performed using [employer] voice recognition software TRAVEL OUTSIDE OF THE [place] IN LAST 30 DAYS: No - HPI Notes: Dictated - Related Data Allergies/Adverse Reactions: lisinopril [Lisinopril] Allergy (Intermediate, Verified 02/11/18 18:05) Unknown reaction Past Medical History - Social History Smoking Status: Never Smoker Chew tobacco use (# tins/day): No Frequency of alcohol use: None Drug Abuse: None Family History: Reviewed & Not Pertinent, Arthritis, DM, Hypertension Patient has suicidal ideation: No Patient has homicidal ideation: No - Past Medical History Cardiac Medical History: Reports: Hx Hypercholesterolemia, Hx Hypertension Pulmonary Medical History: Reports: Hx COPD Denies: Hx Tuberculosis Endocrine Medical History: Reports: Hx Diabetes Mellitus Type 2 Renal/ Medical History: Denies: Hx Peritoneal Dialysis Malignancy Medical History: GI Medical History: Denies: Hx Pancreatitis Musculoskeltal Medical History: Reports Hx Arthritis, Reports Hx Musculoskeletal Deformity, Reports Hx Musculoskeletal Trauma Psychiatric Medical History: Reports: Hx Bipolar Disorder, Hx Depression Traumatic Medical History: Infectious Medical History: Past Surgical History: Reports: Hx Orthopedic Surgery - left knee - Immunizations Immunizations up to date: Yes Hx Diphtheria, Pertussis, Tetanus Vaccination: Yes Hx Pneumococcal Vaccination: 11/13/11 Review of Systems - Review of Systems Notes: Dictated Physical Exam - Vital signs Vitals: Temp Pulse Resp BP Pulse Ox 98.7 F 81 18 139/75 H 97 02/11/18 18:05 02/11/18 18:05 02/11/18 18:05 02/11/18 18:05 02/11/18 18:05 - Notes Notes: Dictated Course - Re-evaluation Re-evalutation: 02/11/18 18:30 Diabetic neuropathy was explained in detail. I asked to control the blood sugar very tightly. - Vital Signs Vital signs: Temp Pulse Resp BP Pulse Ox 98.7 F 81 18 139/75 H 97 02/11/18 18:05 02/11/18 18:05 02/11/18 18:05 02/11/18 18:05 02/11/18 18:05 Discharge - Discharge Clinical Impression: Diabetic neuropathy Qualifiers: Diabetes mellitus type: type 2 Diabetes mellitus complication detail: diabetic polyneuropathy Qualified Code(s): E11.42 - Type 2 diabetes mellitus with diabetic polyneuropathy Condition: Fair Disposition: HOME, SELF-CARE Instructions: Neuropathy ([facility]) Prescriptions: Hydrocodone/Acetaminophen [Vicodin 5-300 mg Tablet] 1 tab PO Q4HP PRN #30 tab PRN Reason: Referrals: CSOMO LI MD [ACTIVE STAFF] - Follow up as needed
== END 2018-02-11 18:33 | disposition home or self-care (01) ==
LOC: ER 17:59
DX: E11.42 Type 2 diabetes mellitus with diabetic polyneuropathy (principal); I10 Essential (primary) hypertension; J44.9 Chronic obstructive pulmonary disease, unspecified; Z88.8 Allergy status to other drugs, medicaments and biological substances
CPT/HCPCS: 99283

== ENCOUNTER → 2018-05-13 | Outpatient (CLI) | payer MEDICARE ==
[2018-05-13 10:57] LABS: ABSOLUTE BASOPHILS # (AUTO) 0.1 10^3/uL (0.0-0.2); ABSOLUTE EOSINOPHILS # (AUTO) 0.3 10^3/uL (0.0-0.6); ABSOLUTE LYMPHOCYTES (AUTO) 2.1 10^3/uL (0.5-4.7); ABSOLUTE MONOCYTES (AUTO) 0.6 10^3/uL (0.1-1.4); ABSOLUTE NEUT (AUTO) 3.4 10^3/uL (1.7-8.2); HEMOGLOBIN 11.9 g/dL (13.5-17.0); LYMPHOCYTES % (AUTO) 32.9 % (13-45); MEAN CORPUSCULAR HEMOGLOBIN 28.5 pg (27.0-33.4); MEAN CORPUSCULAR VOLUME 86 fl (80-97); MONOCYTES % (AUTO) 8.9 % (3-13); PLATELET COUNT 330 10^3/uL (150-450); RED BLOOD COUNT 4.18 10^6/uL (4.35-5.55); RED CELL DISTRIBUTION WIDTH 12.6 % (11.5-14.0); SEGMENTED NEUTROPHILS % (AUTO) 52.2 % (42-78); TOTAL CELLS COUNTED % (AUTO) 100 %; WHITE BLOOD COUNT 6.5 10^3/uL (4.0-10.5)
== END ==
LOC: OD 09:42
PROVIDERS: ATTEND Internal Medicine Nephrology
DX: N18.3 Chronic kidney disease, stage 3 (moderate) (principal)
CPT/HCPCS: 36415; 85025

== ENCOUNTER → 2018-05-19 | Outpatient (CLI) | payer MEDICARE ==
[2018-05-19 16:58] LABS: ANION GAP 18 (5-19); BLOOD UREA NITROGEN 29 mg/dL (7-20); CALCIUM 9.3 mg/dL (8.4-10.2); CARBON DIOXIDE 20 mmol/L (22-30); CHLORIDE 86 mmol/L (98-107); POTASSIUM 5.5 mmol/L (3.6-5.0); SODIUM 124.3 mmol/L (137-145)
[2018-05-19 17:29] LABS: GLUCOSE 777 mg/dL (75-110)
== END ==
LOC: OD 15:38
PROVIDERS: ATTEND Internal Medicine Nephrology
DX: N18.3 Chronic kidney disease, stage 3 (moderate) (principal)
CPT/HCPCS: 36415; 80048

== ENCOUNTER 2018-08-09 14:06 | Emergency (ER) | payer MEDICARE ==
[2018-08-09 15:00] VITALS: BP 143/83
--- NOTE | 2018-08-09 16:37 | ER Document Report ---
ED Medical Screen (RME) - General Chief Complaint: Syncope Stated Complaint: SYNCOPE Time Seen by Provider: 08/09/18 16:21 Notes: [age]-year-old diabetic patient who sugars run high reports walking into his kitchen and "blacked out". He states he did not pass out he just blacked out and fell to the floor. He states this sort of thing happens all the time, but is usually preceded by becoming dizzy. He states is been going on for a while and eventually quantitates that is 10 years, was states it has been a couple of months. He states when he fell this time he hurt both his legs and his left side. He is a diabetic, takes Lantus, glipizide, and is on chronic pain management. I have greeted and performed a rapid initial assessment of this patient. A comprehensive ED assessment and evaluation of the patient, analysis of test results and completion of the medical decision making process will be conducted by additional ED providers. TRAVEL OUTSIDE OF THE [place] IN LAST 30 DAYS: No - Related Data Allergies/Adverse Reactions: lisinopril [Lisinopril] Allergy (Intermediate, Verified 02/11/18 18:05) Unknown reaction Past Medical History - Social History Chew tobacco use (# tins/day): No Frequency of alcohol use: None Drug Abuse: None - Past Medical History Cardiac Medical History: Reports: Hx Hypercholesterolemia, Hx Hypertension Pulmonary Medical History: Reports: Hx COPD Denies: Hx Tuberculosis Endocrine Medical History: Reports: Hx Diabetes Mellitus Type 2 Renal/ Medical History: Denies: Hx Peritoneal Dialysis Malignancy Medical History: GI Medical History: Denies: Hx Pancreatitis Musculoskeltal Medical History: Reports Hx Arthritis, Reports Hx Musculoskeletal Deformity, Reports Hx Musculoskeletal Trauma Psychiatric Medical History: Reports: Hx Bipolar Disorder, Hx Depression Traumatic Medical History: Infectious Medical History: Past Surgical History: Reports: Hx Orthopedic Surgery - left knee - Immunizations Immunizations up to date: Yes Hx Diphtheria, Pertussis, Tetanus Vaccination: Yes Physical Exam - Vital signs Vitals: Temp Pulse Resp BP Pulse Ox 97.2 F 69 20 143/83 H 100 08/09/18 14:47 08/09/18 14:47 08/09/18 14:47 08/09/18 14:47 08/09/18 14:47 Course - Vital Signs Vital signs: Temp Pulse Resp BP Pulse Ox 97.2 F 69 20 143/83 H 100 08/09/18 14:47 08/09/18 14:47 08/09/18 14:47 08/09/18 14:47 08/09/18 14:47 Doctor's Discharge - Discharge Referrals: COSMO LI MD [Primary Care Provider] - Follow up as needed
[2018-08-09 17:06] LABS: ABSOLUTE BASOPHILS # (AUTO) 0.1 10^3/uL (0.0-0.2); ABSOLUTE EOSINOPHILS # (AUTO) 0.2 10^3/uL (0.0-0.6); ABSOLUTE LYMPHOCYTES (AUTO) 2.6 10^3/uL (0.5-4.7); ABSOLUTE MONOCYTES (AUTO) 0.5 10^3/uL (0.1-1.4); ABSOLUTE NEUT (AUTO) 5.2 10^3/uL (1.7-8.2); EOSINOPHILS % (AUTO) 2.2 % (0-6); HEMATOCRIT 35.7 % (37.9-51.0); HEMOGLOBIN 12.2 g/dL (13.5-17.0); LYMPHOCYTES % (AUTO) 30.2 % (13-45); MEAN CORPUSCULAR HEMOGLOBIN 29.2 pg (27.0-33.4); MEAN CORPUSCULAR HGB CONC 34.2 g/dL (32.0-36.0); MEAN CORPUSCULAR VOLUME 85 fl (80-97); MONOCYTES % (AUTO) 6.3 % (3-13); PLATELET COUNT 313 10^3/uL (150-450); RED BLOOD COUNT 4.19 10^6/uL (4.35-5.55); RED CELL DISTRIBUTION WIDTH 12.7 % (11.5-14.0); SEGMENTED NEUTROPHILS % (AUTO) 60.3 % (42-78); TOTAL CELLS COUNTED % (AUTO) 100 %; WHITE BLOOD COUNT 8.6 10^3/uL (4.0-10.5)
[2018-08-09 17:20] LABS: ALANINE AMINOTRANSFERASE 9 U/L (21-72); ALBUMIN 4.6 g/dL (3.5-5.0); ALKALINE PHOSPHATASE 115 U/L (38-126); ANION GAP 19 (5-19); ASPARTATE AMINO TRANSFERASE 16 U/L (17-59); BILIRUBIN,DIRECT 0.3 mg/dL (0.0-0.4); BILIRUBIN,TOTAL 0.7 mg/dL (0.2-1.3); BLOOD UREA NITROGEN 32 mg/dL (7-20); CARBON DIOXIDE 21 mmol/L (22-30); CHLORIDE 90 mmol/L (98-107); CREATINE KINASE 115 U/L (55-170); POTASSIUM 4.8 mmol/L (3.6-5.0); SODIUM 129.6 mmol/L (137-145); TOTAL PROTEIN 8.5 g/dL (6.3-8.2)
[2018-08-09 17:28] LABS: GLUCOSE 583 mg/dL (75-110)
[2018-08-09 17:33] LABS: CREATINE KINASE MB 1.72 ng/mL (<4.55)
[2018-08-09 17:34] LABS: TROPONIN I < 0.012 ng/mL
[2018-08-09] MEDS ORDERED: NORMAL SALINE 1000 ML 1,000 ML IV ONE (17:40)
[2018-08-09] MEDS ORDERED: MORPHINE SULFATE 10 MG/ML INJ IV ONE (17:40)
[2018-08-09] MEDS ORDERED: INSULIN REG, HUMAN 100 UNIT/ML 3 ML VIAL (PYX) IV ONE (17:40)
[2018-08-09] MEDS ORDERED: INSULIN REG, HUMAN 100 UNIT/ML 3 ML VIAL (PYX) SUBCUT ONE (18:24)
--- NOTE | 2018-08-09 18:47 | RADIOLOGY REPORT (SQ) ---
EXAM DESCRIPTION: ANKLE BILATERAL AP/LAT COMPLETED DATE/TIME: 08/09/2018 6:17 pm REASON FOR STUDY: fall COMPARISON: None. NUMBER OF VIEWS: Two views. TECHNIQUE: AP and lateral radiographic images acquired of the right and left ankle. LIMITATIONS: None. FINDINGS: MINERALIZATION: Normal. BONES: No acute fracture or dislocation. No worrisome bone lesions. JOINTS: No effusions. SOFT TISSUES: No soft tissue swelling. No foreign body. OTHER: No other significant finding. IMPRESSION: NO RADIOGRAPHIC EVIDENCE OF ACUTE INJURY OF THE RIGHT AND LEFT ANKLES. TECHNICAL DOCUMENTATION: JOB ID: [id number] [employer]- All Rights Reserved Reading location - IP/workstation name: [email or web address]
--- NOTE | 2018-08-09 18:50 | RADIOLOGY REPORT (SQ) ---
EXAM DESCRIPTION: RIBS LEFT W/PA CHEST COMPLETED DATE/TIME: 08/09/2018 6:17 pm REASON FOR STUDY: fall COMPARISON: None. TECHNIQUE: Frontal view of the chest and additional views of the left ribs acquired. NUMBER OF VIEWS: Four view. LIMITATIONS: None. FINDINGS: FRONTAL CXR: No pneumothorax. No pleural effusion. No atelectasis or infiltrates. RIBS: No displaced rib fractures. No lytic or blastic bony lesions. OTHER: No other significant finding. IMPRESSION: NO PNEUMOTHORAX. NO DISPLACED RIB FRACTURES. COMMENT: SITE OF TRAUMA/COMPLAINT MARKED/STAMP COMPLETED: NO. TECHNICAL DOCUMENTATION: JOB ID: [id number] [employer]- All Rights Reserved Reading location - IP/workstation name: [email or web address]
--- NOTE | 2018-08-09 18:50 | RADIOLOGY REPORT (SQ) ---
EXAM DESCRIPTION: KNEE BILATERAL 1-2 VIEWS COMPLETED DATE/TIME: 08/09/2018 6:17 pm REASON FOR STUDY: fall COMPARISON: None. NUMBER OF VIEWS: Two views. TECHNIQUE: AP and lateral radiographic images acquired of the right and left knee. LIMITATIONS: None. FINDINGS: MINERALIZATION: Normal. BONES: Fracture of the proximal left fibula with callus. Degenerative changes in both knees with med ial joint space narrowing and osteophytes. Chondrocalcinosis. Prominent sclerotic lesions in the di stal femur and proximal tibia of both legs. JOINT: Suprapatellar joint effusion in the left knee. SOFT TISSUES: No soft tissue swelling. No radio-opaque foreign body. OTHER: No other significant finding. IMPRESSION: 1. HEALING FRACTURE OF THE PROXIMAL LEFT FIBULA. SUPRAPATELLAR JOINT EFFUSION IN THE LEFT KNEE. 2. DEGENERATIVE CHANGES IN BOTH KNEES. 3. PROMINENT SCLEROTIC LESIONS IN THE DISTAL FEMUR AND PROXIMAL TIBIA OF BOTH LOWER EXTREMITIES. MAY BE DUE TO CHRONIC BONE INFARCTS AND/OR ENCHONDROMAS. 4. NO DEFINITE ACUTE FRACTURES VISUALIZED. TECHNICAL DOCUMENTATION: JOB ID: [id number] 1961 [employer]- All Rights Reserved Reading location - IP/workstation name: [email or web address]
--- NOTE | 2018-08-09 19:16 | ER Document Report ---
ED Syncope and Near Syncope - General Chief Complaint: Syncope Stated Complaint: SYNCOPE Time Seen by Provider: 08/09/18 16:21 Mode of Arrival: Ambulatory Information source: Patient TRAVEL OUTSIDE OF THE [place] IN LAST 30 DAYS: No - HPI Patient complains to provider of: Other - "Blacked out" Episode witnessed (by whom): Yes - Symptoms prior to episode: None Position/Activity at time of episode: Standing Quality of pain: Achy Severity: Moderate Pain Level: 3 Context: Collapsed Injury location: Chest - Left lower ribs, LUE, LLE Current symptoms: None/feels back to normal Similar symptoms previously: Yes Notes: Patient is a 62-year-old male presenting to the emergency room for possible syncopal episode that occurred just prior to arrival, patient states he " blacked out" and fell to the floor, this episode was witnessed by his who is at bedside and reports he was out for just a few seconds, he does report that he frequently has episodes similar as this which has been going on for the past few years, although he usually has dizziness just prior to the syncopal episode, today he did not have any dizziness, he had no other symptoms prior to the episode and denies any symptoms at present except for bilateral knee, bilateral ankle and left lower rib pain - Related Data Allergies/Adverse Reactions: lisinopril [Lisinopril] Allergy (Intermediate, Verified 02/11/18 18:05) Unknown reaction Past Medical History - General Information source: Patient, Relative - Social History Smoking Status: Never Smoker Chew tobacco use (# tins/day): No Frequency of alcohol use: None Drug Abuse: None Family History: Reviewed & Not Pertinent, Arthritis, DM, Hypertension Patient has suicidal ideation: No Patient has homicidal ideation: No - Past Medical History Cardiac Medical History: Reports: Hx Hypercholesterolemia, Hx Hypertension Pulmonary Medical History: Reports: Hx COPD Denies: Hx Tuberculosis Endocrine Medical History: Reports: Hx Diabetes Mellitus Type 2 Renal/ Medical History: Denies: Hx Peritoneal Dialysis Malignancy Medical History: GI Medical History: Denies: Hx Pancreatitis Musculoskeletal Medical History: Reports Hx Arthritis, Reports Hx Musculoskeletal Deformity, Reports Hx Musculoskeletal Trauma Psychiatric Medical History: Reports: Hx Bipolar Disorder, Hx Depression Traumatic Medical History: Infectious Medical History: Past Surgical History: Reports: Hx Orthopedic Surgery - left knee - Immunizations Immunizations up to date: Yes Hx Diphtheria, Pertussis, Tetanus Vaccination: Yes Hx Pneumococcal Vaccination: 11/13/11 Review of Systems - Review of Systems Constitutional: No symptoms reported EENT: No symptoms reported Cardiovascular: Syncope Respiratory: No symptoms reported Gastrointestinal: No symptoms reported Genitourinary: No symptoms reported Male Genitourinary: No symptoms reported Musculoskeletal: See HPI Skin: No symptoms reported Hematologic/Lymphatic: No symptoms reported Neurological/Psychological: No symptoms reported -: Yes All other systems reviewed and negative Physical Exam - Vital signs Vitals: Temp Pulse Resp BP Pulse Ox 97.2 F 69 20 143/83 H 100 08/09/18 14:47 08/09/18 14:47 08/09/18 14:47 08/09/18 14:47 08/09/18 14:47 Interpretation: Normal - General General appearance: Appears well, Alert - HEENT Head: Normocephalic, Atraumatic Eyes: Normal Pupils: PERRL - Respiratory Respiratory status: No respiratory distress Chest status: Nontender Breath sounds: Normal Chest palpation: Normal - Cardiovascular Rhythm: Regular Heart sounds: Normal auscultation Murmur: No - Abdominal Inspection: Normal Distension: No distension Bowel sounds: Normal Tenderness: Nontender Organomegaly: No organomegaly - Back Back: Normal, Nontender - Extremities General upper extremity: Normal inspection, Nontender, Normal color, Normal ROM , Normal temperature General lower extremity: Normal color, Normal temperature. No: Radha's sign Knee: Tender - Tenderness to palpate bilateral knees, bilateral ankles, mild swelling to the left knee, full range of motion, distal sensation and motor is intact with 2+ DP pulses - Neurological Neuro grossly intact: Yes Cognition: Normal Orientation: AAOx4 [place] Coma Scale Eye Opening: Spontaneous [place] Coma Scale Verbal: Oriented [place] Coma Scale Motor: Obeys Commands [place] Coma Scale Total: 15 Speech: Normal Motor strength normal: LUE, RUE, LLE, RLE Sensory: Normal - Psychological Associated symptoms: Normal affect, Normal mood - Skin Skin Temperature: Warm Skin Moisture: Dry Skin Color: Normal Course - Re-evaluation Re-evalutation: 08/10/18 00:34 Evaluation in the emergency room consistent with hyperglycemia, no signs of DKA , patient does report his blood sugars usually run in the 4-500 range, this is secondary to poor diet which patient admits to, blood sugar came down with IV fluids and insulin, otherwise patient states she has been having these syncopal episodes for years, states she has not been seen by a client service executive for them, therefore was given an instructions to follow-up with cardiology and primary care or return if symptoms worsen, patient acknowledges understanding and agreement with this plan - Vital Signs Vital signs: Temp Pulse Resp BP Pulse Ox 97.2 F 69 18 143/83 H 95 08/09/18 14:47 08/09/18 14:47 08/09/18 19:00 08/09/18 14:47 08/09/18 19:00 - Laboratory Result Diagrams: 08/09/18 16:44 08/09/18 16:44 Laboratory results interpreted by me: 08/09/18 08/09/18 08/09/18 16:44 16:44 16:44 RBC 4.19 L Hgb 12.2 L Hct 35.7 L Sodium 129.6 L Chloride 90 L Carbon Dioxide 21 L BUN 32 H Creatinine 2.13 H Est GFR ( Amer) 38 L Est GFR (Non-Af Amer) 31 L Glucose 583 H* POC Glucose Hemoglobin A1c % > 14.0 H AST 16 L ALT 9 L Total Protein 8.5 H Urine Glucose (UA) 08/09/18 08/09/18 08/09/18 18:40 19:07 19:23 RBC Hgb Hct Sodium Chloride Carbon Dioxide BUN Creatinine Est GFR ( Amer) Est GFR (Non-Af Amer) Glucose POC Glucose 465 H* 403 H* Hemoglobin A1c % AST ALT Total Protein Urine Glucose (UA) >=500 H - Diagnostic Test Radiology reviewed: Image reviewed, Reports reviewed - EKG Interpretation by Me EKG shows normal: Sinus rhythm Rate: Normal Rhythm: NSR Discharge - Discharge Clinical Impression: Hyperglycemia Syncope Qualifiers: Syncope type: unspecified Qualified Code(s): R55 - Syncope and collapse Knee contusion Qualifiers: Encounter type: initial encounter Laterality: left Qualified Code(s): S80.02XA - Contusion of left knee, initial encounter Rib contusion Qualifiers: Encounter type: initial encounter Laterality: unspecified laterality Qualified Code(s): S20.219A - Contusion of unspecified front wall of thorax, initial encounter Condition: Stable Disposition: HOME, SELF-CARE Instructions: Hyperglycemia ([facility]), Suspected Internal Knee Injury ([facility]), Knee Effusion ([facility]), Rib Contusion ([facility]), Syncopal Episode ([facility]) Additional Instructions: Follow up with your primary care provider and a client service executive in one to 2 days. Return to the emergency room immediately if symptoms worsen or any additional concerns. Referrals: COSMO LI MD [Primary Care Provider] - Follow up as needed DEVON MCGEE MD [ACTIVE STAFF] - Follow up as needed
--- NOTE | 2018-08-09 19:37 | EKG REPORT ---
SEVERITY:- NORMAL ECG - SINUS RHYTHM : Confirmed by: Giacomo Jensen MD 09-Aug-2018 19:35:53
[2018-08-09 20:35] LABS: APPEARANCE,URINE CLEAR; BILIRUBIN,URINE NEGATIVE (NEGATIVE); COLOR,URINE STRAW; GLUCOSE, URINE >=500 mg/dL (NEGATIVE); KETONES,URINE NEGATIVE (NEGATIVE); LEUKOCYTE ESTERASE,URINE NEGATIVE (NEGATIVE); NITRITE,URINE NEGATIVE (NEGATIVE); PROTEIN,URINE NEGATIVE (NEGATIVE); URINE SPECIFIC GRAVITY 1.017; UROBILINOGEN,URINE NEGATIVE mg/dL (<2.0)
== END 2018-08-09 19:52 | disposition home or self-care (01) ==
LOC: ER 14:06
DX: E11.65 Type 2 diabetes mellitus with hyperglycemia (principal); R55 Syncope and collapse; S80.02XA Contusion of left knee, initial encounter; S20.219A Contusion of unspecified front wall of thorax, initial encounter; M25.561 Pain in right knee; M25.562 Pain in left knee; M25.462 Effusion, left knee; M25.571 Pain in right ankle and joints of right foot; M25.572 Pain in left ankle and joints of left foot; R07.81 Pleurodynia; W19.XXXA Unspecified fall, initial encounter; Y93.89 Activity, other specified; I10 Essential (primary) hypertension; J44.9 Chronic obstructive pulmonary disease, unspecified; Z88.8 Allergy status to other drugs, medicaments and biological substances
CPT/HCPCS: 93005; 99284; 96361; 96374; 36415; 82553; 82962; 82550; 83735; 85025; 80053; 81001; 84484; 83036; 71101; 73560; 73600; 93010; J2270; A9270; J7030; J1815

== ENCOUNTER → 2018-09-06 | Outpatient (CLI) | payer MEDICARE ==
[2018-09-06 09:47] LABS: ABSOLUTE BASOPHILS # (AUTO) 0.1 10^3/uL (0.0-0.2); ABSOLUTE EOSINOPHILS # (AUTO) 0.4 10^3/uL (0.0-0.6); ABSOLUTE LYMPHOCYTES (AUTO) 2.5 10^3/uL (0.5-4.7); ABSOLUTE MONOCYTES (AUTO) 0.5 10^3/uL (0.1-1.4); ABSOLUTE NEUT (AUTO) 2.7 10^3/uL (1.7-8.2); BASOPHILS % (AUTO) 1.2 % (0-2); EOSINOPHILS % (AUTO) 6.7 % (0-6); HEMATOCRIT 33.8 % (37.9-51.0); HEMOGLOBIN 11.4 g/dL (13.5-17.0); LYMPHOCYTES % (AUTO) 39.8 % (13-45); MEAN CORPUSCULAR HEMOGLOBIN 29.4 pg (27.0-33.4); MEAN CORPUSCULAR HGB CONC 33.6 g/dL (32.0-36.0); MEAN CORPUSCULAR VOLUME 87 fl (80-97); MONOCYTES % (AUTO) 8.3 % (3-13); PLATELET COUNT 318 10^3/uL (150-450); RED BLOOD COUNT 3.87 10^6/uL (4.35-5.55); RED CELL DISTRIBUTION WIDTH 13.9 % (11.5-14.0); TOTAL CELLS COUNTED % (AUTO) 100 %; WHITE BLOOD COUNT 6.2 10^3/uL (4.0-10.5)
[2018-09-06 10:15] LABS: ANION GAP 10 (5-19); BLOOD UREA NITROGEN 24 mg/dL (7-20); CALCIUM 9.3 mg/dL (8.4-10.2); CARBON DIOXIDE 20 mmol/L (22-30); CHLORIDE 109 mmol/L (98-107); GLUCOSE 187 mg/dL (75-110); PHOSPHORUS 3.9 mg/dL (2.5-4.5); POTASSIUM 4.8 mmol/L (3.6-5.0); SODIUM 139.3 mmol/L (137-145)
[2018-09-06 11:27] LABS: APPEARANCE,URINE SLIGHTLY-CLOUDY; BILIRUBIN,URINE NEGATIVE (NEGATIVE); COLOR,URINE YELLOW; GLUCOSE, URINE NEGATIVE (NEGATIVE); KETONES,URINE NEGATIVE (NEGATIVE); LEUKOCYTE ESTERASE,URINE NEGATIVE (NEGATIVE); NITRITE,URINE NEGATIVE (NEGATIVE); PROTEIN,URINE NEGATIVE (NEGATIVE); URIC ACID CRYSTALS,URINE FEW /HPF; URINE SPECIFIC GRAVITY 1.018
[2018-09-06 12:47] LABS: APPEARANCE,URINE SLIGHTLY-CLOUDY; BILIRUBIN,URINE NEGATIVE (NEGATIVE); COLOR,URINE YELLOW; GLUCOSE, URINE NEGATIVE (NEGATIVE); KETONES,URINE NEGATIVE (NEGATIVE); LEUKOCYTE ESTERASE,URINE NEGATIVE (NEGATIVE); NITRITE,URINE NEGATIVE (NEGATIVE); PROTEIN,URINE NEGATIVE (NEGATIVE); URINE SPECIFIC GRAVITY 1.013; UROBILINOGEN,URINE NEGATIVE mg/dL (<2.0)
[2018-09-07 06:37] LABS: CREATININE URINE 140.6 mg/dL (Not Estab.); MICROALBUMIN URINE 15.9 ug/mL (Not Estab.)
== END ==
LOC: OD 09:13
PROVIDERS: ATTEND Internal Medicine Nephrology
DX: E11.22 Type 2 diabetes mellitus with diabetic chronic kidney disease (principal); N18.3 Chronic kidney disease, stage 3 (moderate); N18.9 Chronic kidney disease, unspecified; E55.9 Vitamin D deficiency, unspecified
CPT/HCPCS: 36415; 80048; 81001; 82040; 82043; 82306; 82570; 83970; 84100; 85025

== ENCOUNTER 2018-12-06 08:26 | Day surgery (SDC) | payer MEDICARE ==
[~2018-12-06 08:26] MED LIST: PROPOFOL INJ 200 MG/20 ML VIAL IV ONE
[2018-12-06 10:35] VITALS: BP 151/89
--- NOTE | 2018-12-06 13:34 | Operative Report ---
Operative Report DATE OF SURGERY: 12/06/18 Operative Report: The risks, benefits and alternatives of the procedure including the risk of bleeding, perforation requiring surgery have been explained to the patient in detail and informed consent has been obtained. Patient is brought back to the endoscopy suite and placed in the left, lateral decubital position. Timeout was called. Propofol medication is administered. Rectal examination is done which did not reveal any masses, tears or fissures. An Olympus videoscope was introduced into the patient's rectum. The scope was then carefully advanced all the way to the cecum. Cecum was identified by the usual anatomical landmarks including the ileocecal valve as well as the appendiceal office. Photodocumentation is obtained. Scope was then sequentially pulled back via the various segments of the colon including the ascending colon, hepatic flexure, descending colon, splenic flexure, descending colon and finally into the rectosigmoid portion of the colon. Retroflexion maneuver was performed. PREOPERATIVE DIAGNOSIS: Personal history of polyp POSTOPERATIVE DIAGNOSIS: Inflammation noted on the right side of the colon status post biopsy. Internal hemorrhoids OPERATION: Colonoscopy with biopsy SURGEON: ARAVIND MIRANDA ANESTHESIA: LMAC TISSUE REMOVED OR ALTERED: As noted above. COMPLICATIONS: None. ESTIMATED BLOOD LOSS: None. INTRAOPERATIVE FINDINGS: As noted above. PROCEDURE: Patient tolerated the procedure well. No immediate postprocedure complications are noted. Patient discharged in good condition. Discharge date 12/06/2018. Discharge diet: Regular. Discharge activity: Regular. 2-3-week follow-up to discuss findings. Patient is instructed call the office or proceed to the emergency room should there be any further proximal questions. Wait on the pathology. If no family history of colon cancer patient can proceed 10 years for the next surveillance.
== END 2018-12-06 10:27 | disposition home or self-care (01) ==
LOC: END 08:26
PROVIDERS: ATTEND Internal Medicine Gastroenterology
DX: Z12.11 Encounter for screening for malignant neoplasm of colon (principal); K52.9 Noninfective gastroenteritis and colitis, unspecified; K64.8 Other hemorrhoids; Z86.010 Personal history of colon polyps; I12.9 Hypertensive chronic kidney disease with stage 1 through stage 4 chronic kidney disease, or unspecified chronic kidney disease; E11.22 Type 2 diabetes mellitus with diabetic chronic kidney disease; N18.3 Chronic kidney disease, stage 3 (moderate); E11.42 Type 2 diabetes mellitus with diabetic polyneuropathy; E78.5 Hyperlipidemia, unspecified; Z79.899 Other long term (current) drug therapy; Z79.1 Long term (current) use of non-steroidal anti-inflammatories (NSAID); Z79.84 Long term (current) use of oral hypoglycemic drugs
CPT/HCPCS: 45380; 82962; 88305 ×2; J2704; 811

== ENCOUNTER → 2019-01-26 | Outpatient (CLI) | payer MEDICARE ==
[2019-01-26 09:06] LABS: ABSOLUTE BASOPHILS # (AUTO) 0.1 10^3/uL (0.0-0.2); ABSOLUTE EOSINOPHILS # (AUTO) 0.3 10^3/uL (0.0-0.6); ABSOLUTE LYMPHOCYTES (AUTO) 2.1 10^3/uL (0.5-4.7); ABSOLUTE MONOCYTES (AUTO) 0.4 10^3/uL (0.1-1.4); BASOPHILS % (AUTO) 1.2 % (0-2); EOSINOPHILS % (AUTO) 6.8 % (0-6); HEMATOCRIT 37.2 % (37.9-51.0); HEMOGLOBIN 12.4 g/dL (13.5-17.0); LYMPHOCYTES % (AUTO) 43.6 % (13-45); MEAN CORPUSCULAR HEMOGLOBIN 28.6 pg (27.0-33.4); MEAN CORPUSCULAR HGB CONC 33.3 g/dL (32.0-36.0); MEAN CORPUSCULAR VOLUME 86 fl (80-97); MONOCYTES % (AUTO) 7.6 % (3-13); PLATELET COUNT 278 10^3/uL (150-450); RED BLOOD COUNT 4.32 10^6/uL (4.35-5.55); RED CELL DISTRIBUTION WIDTH 13.1 % (11.5-14.0); SEGMENTED NEUTROPHILS % (AUTO) 40.8 % (42-78); TOTAL CELLS COUNTED % (AUTO) 100 %; WHITE BLOOD COUNT 4.9 10^3/uL (4.0-10.5)
[2019-01-26 09:29] LABS: ANION GAP 12 (5-19); BLOOD UREA NITROGEN 27 mg/dL (7-20); CALCIUM 9.8 mg/dL (8.4-10.2); CARBON DIOXIDE 24 mmol/L (22-30); CHLORIDE 98 mmol/L (98-107); POTASSIUM 5.2 mmol/L (3.6-5.0); SODIUM 134.2 mmol/L (137-145)
[2019-01-26 09:48] LABS: GLUCOSE 439 mg/dL (75-110)
== END ==
LOC: OD 08:40
PROVIDERS: ATTEND Internal Medicine Nephrology
DX: E11.22 Type 2 diabetes mellitus with diabetic chronic kidney disease (principal); I12.9 Hypertensive chronic kidney disease with stage 1 through stage 4 chronic kidney disease, or unspecified chronic kidney disease; N18.3 Chronic kidney disease, stage 3 (moderate); D64.9 Anemia, unspecified
CPT/HCPCS: 36415; 80048; 83970; 85025

== ENCOUNTER → 2019-04-27 | Outpatient (CLI) | payer MEDICARE ==
[2019-04-27 09:27] LABS: ABSOLUTE EOSINOPHILS # (AUTO) 0.3 10^3/uL (0.0-0.6); ABSOLUTE LYMPHOCYTES (AUTO) 2.6 10^3/uL (0.5-4.7); ABSOLUTE MONOCYTES (AUTO) 0.4 10^3/uL (0.1-1.4); ABSOLUTE NEUT (AUTO) 2.5 10^3/uL (1.7-8.2); BASOPHILS % (AUTO) 0.8 % (0-2); EOSINOPHILS % (AUTO) 4.7 % (0-6); HEMATOCRIT 36.5 % (37.9-51.0); HEMOGLOBIN 12.1 g/dL (13.5-17.0); LYMPHOCYTES % (AUTO) 44.4 % (13-45); MEAN CORPUSCULAR HGB CONC 33.3 g/dL (32.0-36.0); MEAN CORPUSCULAR VOLUME 87 fl (80-97); MONOCYTES % (AUTO) 7.4 % (3-13); PLATELET COUNT 230 10^3/uL (150-450); RED BLOOD COUNT 4.18 10^6/uL (4.35-5.55); RED CELL DISTRIBUTION WIDTH 13.4 % (11.5-14.0); SEGMENTED NEUTROPHILS % (AUTO) 42.7 % (42-78); TOTAL CELLS COUNTED % (AUTO) 100 %; WHITE BLOOD COUNT 5.8 10^3/uL (4.0-10.5)
[2019-04-27 09:51] LABS: ALBUMIN 4.3 g/dL (3.5-5.0); ANION GAP 12 (5-19); BLOOD UREA NITROGEN 31 mg/dL (7-20); CALCIUM 9.1 mg/dL (8.4-10.2); CARBON DIOXIDE 21 mmol/L (22-30); CHLORIDE 100 mmol/L (98-107); GLUCOSE 319 mg/dL (75-110); PHOSPHORUS 3.7 mg/dL (2.5-4.5); POTASSIUM 4.4 mmol/L (3.6-5.0)
[2019-04-27 10:05] LABS: APPEARANCE,URINE CLEAR; BILIRUBIN,URINE NEGATIVE (NEGATIVE); COLOR,URINE YELLOW; GLUCOSE, URINE >=500 mg/dL (NEGATIVE); KETONES,URINE NEGATIVE (NEGATIVE); LEUKOCYTE ESTERASE,URINE NEGATIVE (NEGATIVE); NITRITE,URINE NEGATIVE (NEGATIVE); PROTEIN,URINE 30 mg/dL (NEGATIVE); URINE SPECIFIC GRAVITY 1.018; UROBILINOGEN,URINE NEGATIVE mg/dL (<2.0)
[2019-04-28 12:36] LABS: CREATININE URINE 128.5 mg/dL (Not Estab.); MICROALBUMIN URINE 102.3 ug/mL (Not Estab.)
== END ==
LOC: OD 08:39
PROVIDERS: ATTEND Internal Medicine Nephrology
DX: I12.9 Hypertensive chronic kidney disease with stage 1 through stage 4 chronic kidney disease, or unspecified chronic kidney disease (principal); N18.3 Chronic kidney disease, stage 3 (moderate); E11.40 Type 2 diabetes mellitus with diabetic neuropathy, unspecified; D63.1 Anemia in chronic kidney disease; N25.81 Secondary hyperparathyroidism of renal origin
CPT/HCPCS: 36415; 80069; 81001; 82043; 82306; 82570; 83970; 85025

== ENCOUNTER → 2019-08-24 | Outpatient (CLI) | payer MEDICARE ==
[2019-08-24 09:14] LABS: ABSOLUTE BASOPHILS # (AUTO) 0.1 10^3/uL (0.0-0.2); ABSOLUTE EOSINOPHILS # (AUTO) 0.1 10^3/uL (0.0-0.6); ABSOLUTE LYMPHOCYTES (AUTO) 1.8 10^3/uL (0.5-4.7); ABSOLUTE MONOCYTES (AUTO) 0.4 10^3/uL (0.1-1.4); ABSOLUTE NEUT (AUTO) 2.2 10^3/uL (1.7-8.2); BASOPHILS % (AUTO) 1.2 % (0-2); EOSINOPHILS % (AUTO) 2.2 % (0-6); HEMATOCRIT 39.1 % (37.9-51.0); LYMPHOCYTES % (AUTO) 39.2 % (13-45); MEAN CORPUSCULAR HEMOGLOBIN 29.1 pg (27.0-33.4); MEAN CORPUSCULAR HGB CONC 33.3 g/dL (32.0-36.0); MEAN CORPUSCULAR VOLUME 87 fl (80-97); PLATELET COUNT 274 10^3/uL (150-450); RED BLOOD COUNT 4.48 10^6/uL (4.35-5.55); RED CELL DISTRIBUTION WIDTH 12.6 % (11.5-14.0); SEGMENTED NEUTROPHILS % (AUTO) 48.4 % (42-78); TOTAL CELLS COUNTED % (AUTO) 100 %; WHITE BLOOD COUNT 4.6 10^3/uL (4.0-10.5)
[2019-08-24 09:43] LABS: ANION GAP 16 (5-19); BLOOD UREA NITROGEN 18 mg/dL (7-20); CALCIUM 9.7 mg/dL (8.4-10.2); CARBON DIOXIDE 22 mmol/L (22-30); CHLORIDE 103 mmol/L (98-107); GLUCOSE 87 mg/dL (75-110)
[2019-08-25 12:36] LABS: CREATININE URINE 84.5 mg/dL (Not Estab.); MICROALBUMIN URINE 51.4 ug/mL (Not Estab.)
== END ==
LOC: OD 08:39
PROVIDERS: ATTEND Internal Medicine Nephrology
DX: I12.9 Hypertensive chronic kidney disease with stage 1 through stage 4 chronic kidney disease, or unspecified chronic kidney disease (principal); N18.3 Chronic kidney disease, stage 3 (moderate); E11.22 Type 2 diabetes mellitus with diabetic chronic kidney disease; N25.81 Secondary hyperparathyroidism of renal origin; R80.9 Proteinuria, unspecified
CPT/HCPCS: 36415; 80048; 82043; 82570; 85025

== ENCOUNTER 2019-09-22 12:58 | Emergency (ER) | payer MEDICARE ==
[2019-09-22] MEDS ORDERED: IPRATROPIUM/ALBUTEROL 0.5-2.5 MG/3 ML AMPUL NEB ONE (14:28)
--- NOTE | 2019-09-22 14:28 | ER Document Report ---
ED Medical Screen (RME) - General Chief Complaint: Dizziness Stated Complaint: COUGH Time Seen by Provider: 09/22/19 14:20 Primary Care Provider: COSMO LI MD [Primary Care Provider] - Follow up as needed Notes: 63-year-old male with a history of hypertension chronic kidney disease presents the emergency room for complaints of dizziness, shortness of breath, lightheadedness that is become progressively worse over the last weeks. Reports body aches, productive cough and nasal congestion that is intermittently bloody. Has not tried any [id number] medications. Denies any chest pain, nausea vomiting diarrhea. Has not been seen by her primary care provider for this issue. I have greeted and performed a rapid initial assessment of this patient. A comprehensive ED assessment and evaluation of the patient, analysis of test results and completion of the medical decision making process will be conducted by additional ED providers. PHYSICAL EXAMINATION: GENERAL: Acutely ill, well-nourished and in mild distress. HEAD: Atraumatic, normocephalic. CV: s1, s2 regular LUNGS: Diminished breath sounds in bilateral upper lobes Musculoskeletal: Normal range of motion NEUROLOGICAL: Normal speech, normal gait. SKIN: Warm, Dry, normal turgor, no rashes or lesions noted. TRAVEL OUTSIDE OF THE [place] IN LAST 30 DAYS: No - Related Data Allergies/Adverse Reactions: lisinopril [Lisinopril] Allergy (Intermediate, Verified 12/06/18 08:35) Cough Past Medical History - Social History Frequency of alcohol use: None Drug Abuse: None - Past Medical History Cardiac Medical History: Reports: Hx Hypercholesterolemia, Hx Hypertension Denies: Hx Coronary Artery Disease, Hx Heart Attack Pulmonary Medical History: Reports: Hx COPD - Patient denies 12/06/18 Denies: Hx Asthma, Hx Bronchitis, Hx Pneumonia, Hx Tuberculosis Neurological Medical History: Denies: Hx Cerebrovascular Accident, Hx Seizures Endocrine Medical History: Reports: Hx Diabetes Mellitus Type 2 Renal/ Medical History: Denies: Hx Peritoneal Dialysis Malignancy Medical History: GI Medical History: Denies: Hx Pancreatitis Musculoskeltal Medical History: Reports Hx Arthritis - Hands , Reports Hx Musculoskeletal Deformity, Reports Hx Musculoskeletal Trauma, Denies Hx Systemic Lupus Erythematosus Psychiatric Medical History: Reports: Hx Bipolar Disorder, Hx Depression Traumatic Medical History: Infectious Medical History: Past Surgical History: Reports: Hx Orthopedic Surgery - left knee - Immunizations Immunizations up to date: Yes Hx Diphtheria, Pertussis, Tetanus Vaccination: Yes Physical Exam - Vital signs Vitals: Temp Pulse Resp BP Pulse Ox 98.8 F 69 18 119/74 97 09/22/19 13:55 09/22/19 13:55 09/22/19 13:55 09/22/19 13:55 09/22/19 13:55 Course - Vital Signs Vital signs: Temp Pulse Resp BP Pulse Ox 98.8 F 69 18 119/74 97 09/22/19 13:55 09/22/19 13:55 09/22/19 13:55 09/22/19 13:55 09/22/19 13:55 Doctor's Discharge - Discharge Referrals: COSMO LI MD [Primary Care Provider] - Follow up as needed
--- NOTE | 2019-09-22 14:58 | RADIOLOGY REPORT (SQ) ---
EXAM DESCRIPTION: CHEST 2 VIEWS COMPLETED DATE/TIME: 09/22/2019 2:47 pm REASON FOR STUDY: sob, coughing COMPARISON: 06/22/2017 EXAM PARAMETERS: NUMBER OF VIEWS: two views TECHNIQUE: Digital Frontal and Lateral radiographic views of the chest acquired. RADIATION DOSE: NA LIMITATIONS: none FINDINGS: LUNGS AND PLEURA: No opacities, masses or pneumothorax. No pleural effusion. MEDIASTINUM AND HILAR STRUCTURES: No masses or contour abnormalities. HEART AND VASCULAR STRUCTURES: Heart normal size. No evidence for failure. BONES: No acute findings. HARDWARE: None in the chest. OTHER: No other significant finding. IMPRESSION: NO ACUTE RADIOGRAPHIC FINDING IN THE CHEST. TECHNICAL DOCUMENTATION: JOB ID: [id number] [employer]- All Rights Reserved Reading location - IP/workstation name: [email or web address]
[2019-09-22 15:43] LABS: A TYPE INFLUENZA AG NEGATIVE (NEGATIVE); B INFLUENZA AG NEGATIVE (NEGATIVE)
[2019-09-22 15:46] LABS: ABSOLUTE MONOCYTES (AUTO) 0.7 10^3/uL (0.1-1.4); TOTAL CELLS COUNTED % (AUTO) 100 %
[2019-09-22 16:03] LABS: ABSOLUTE EOSINOPHILS # (AUTO) 0.2 10^3/uL (0.0-0.6); ABSOLUTE LYMPHOCYTES (AUTO) 2.8 10^3/uL (0.5-4.7); ABSOLUTE NEUT (AUTO) 4.1 10^3/uL (1.7-8.2); BASOPHILS % (AUTO) 0.2 % (0-2); EOSINOPHILS % (AUTO) 3.1 % (0-6); HEMATOCRIT 39.4 % (37.9-51.0); HEMOGLOBIN 13.3 g/dL (13.5-17.0); MEAN CORPUSCULAR HEMOGLOBIN 29.2 pg (27.0-33.4); MEAN CORPUSCULAR HGB CONC 33.7 g/dL (32.0-36.0); MEAN CORPUSCULAR VOLUME 87 fl (80-97); MONOCYTES % (AUTO) 8.4 % (3-13); PLATELET COUNT 312 10^3/uL (150-450); RED BLOOD COUNT 4.55 10^6/uL (4.35-5.55); RED CELL DISTRIBUTION WIDTH 12.9 % (11.5-14.0); SEGMENTED NEUTROPHILS % (AUTO) 52.3 % (42-78); WHITE BLOOD COUNT 7.9 10^3/uL (4.0-10.5)
[2019-09-22 16:06] LABS: ALBUMIN 4.3 g/dL (3.5-5.0); ALKALINE PHOSPHATASE 64 U/L (38-126); ANION GAP 11 (5-19); ASPARTATE AMINO TRANSFERASE 19 U/L (17-59); BILIRUBIN,DIRECT 0.2 mg/dL (0.0-0.4); BILIRUBIN,TOTAL 0.5 mg/dL (0.2-1.3); BLOOD UREA NITROGEN 16 mg/dL (7-20); CALCIUM 9.7 mg/dL (8.4-10.2); CARBON DIOXIDE 29 mmol/L (22-30); CHLORIDE 98 mmol/L (98-107); GLUCOSE 91 mg/dL (75-110); POTASSIUM 4.8 mmol/L (3.6-5.0); TOTAL PROTEIN 8.2 g/dL (6.3-8.2)
--- NOTE | 2019-09-22 20:10 | ER Document Report ---
ED General - General Chief Complaint: Dizziness Stated Complaint: COUGH Time Seen by Provider: 09/22/19 14:20 Primary Care Provider: COSMO LI MD [ACTIVE STAFF] - Follow up as needed Information source: Patient TRAVEL OUTSIDE OF THE [place] IN LAST 30 DAYS: No - HPI Onset: Other - 2 weeks ago but worse x1 week with associated nasal congestion and bloody phlegm when he blows his nose. Other family members are sick - Related Data Allergies/Adverse Reactions: lisinopril [Lisinopril] Allergy (Intermediate, Verified 09/22/19 18:22) Cough Past Medical History - General Information source: Patient - Social History Smoking Status: Never Smoker Cigarette use (# per day): No Chew tobacco use (# tins/day): No Smoking Education Provided: No Frequency of alcohol use: None Drug Abuse: None Family History: Reviewed & Not Pertinent, Arthritis, DM, Hypertension Patient has suicidal ideation: No Patient has homicidal ideation: No - Medical History Medical History: Other - Patient with CKD hypertension ethanol abuse ARF and narcotic overdose and dental abscesses in the past. - Past Medical History Cardiac Medical History: Reports: Hx Hypercholesterolemia, Hx Hypertension Denies: Hx Coronary Artery Disease, Hx Heart Attack Pulmonary Medical History: Reports: Hx COPD Denies: Hx Asthma, Hx Bronchitis, Hx Pneumonia, Hx Tuberculosis Neurological Medical History: Denies: Hx Cerebrovascular Accident, Hx Seizures Endocrine Medical History: Reports: Hx Diabetes Mellitus Type 2 Renal/ Medical History: Denies: Hx Peritoneal Dialysis Malignancy Medical History: GI Medical History: Denies: Hx Pancreatitis Musculoskeletal Medical History: Reports Hx Arthritis - Hands , Reports Hx Musculoskeletal Deformity, Reports Hx Musculoskeletal Trauma, Denies Hx Systemic Lupus Erythematosus Psychiatric Medical History: Reports: Hx Bipolar Disorder, Hx Depression Traumatic Medical History: Infectious Medical History: Past Surgical History: Reports: Hx Orthopedic Surgery - left knee - Immunizations Immunizations up to date: Yes Hx Diphtheria, Pertussis, Tetanus Vaccination: Yes Hx Pneumococcal Vaccination: 11/13/11 Review of Systems - Review of Systems Constitutional: Fever EENT: Nose congestion, Nose discharge, Sinus pressure Respiratory: Cough, Other - Productive Neurological/Psychological: Other - Take Physical Exam - Vital signs Vitals: Temp Pulse Resp BP Pulse Ox 98.8 F 69 18 119/74 97 09/22/19 13:55 09/22/19 13:55 09/22/19 13:55 09/22/19 13:55 09/22/19 13:55 - HEENT Head: Normocephalic Eyes: Normal Conjunctiva: Normal Extraocular movements intact: Yes Lids everted for exam: bilateral: Normal Sinus: Abnormal, Maxillary Nasal: Bloody discharge, Purulent discharge Course - Vital Signs Vital signs: Temp Pulse Resp BP Pulse Ox 97.7 F 68 28 H 158/93 H 100 09/22/19 18:36 09/22/19 18:37 09/22/19 19:01 09/22/19 19:01 09/22/19 19:01 - Laboratory Result Diagrams: 09/22/19 15:33 09/22/19 15:33 Laboratory results interpreted by me: 09/22/19 09/22/19 15:33 15:33 Hgb 13.3 L Creatinine 2.10 H Est GFR ( Amer) 39 L Est GFR (MDRD) Non-Af 32 L - Diagnostic Test Radiology reviewed: Reports reviewed Critical Care Note - Critical Care Note Total time excluding time spent on procedures (mins): 30 Discharge - Discharge Clinical Impression: Viral syndrome, Sinusitis Condition: Good Disposition: HOME, SELF-CARE Instructions: Viral Syndrome ([facility]) Prescriptions: Hydrocodone Bit/Homatropine [Hycodan Syrup 5-1.5 mg/5 ml Ud Cup] 5 ml PO Q4HP PRN #120 ml PRN Reason: Mupirocin [Bactroban 2% Ointment 22 gm] 1 applic NASL HSP PRN #1 tube PRN Reason: Mupirocin [Bactroban 2% Ointment 22 gm] 1 applic NASL TID #1 tube Forms: Return to Work Referrals: COSMO LI MD [ACTIVE STAFF] - Follow up as needed
[2019-09-22 20:26] VITALS: BP 169/92
--- NOTE | 2019-09-22 21:55 | EKG REPORT ---
SEVERITY:- ABNORMAL ECG - SINUS RHYTHM : Confirmed by: Andie Peterson 22-Sep-2019 21:55:12
== END 2019-09-22 20:37 | disposition home or self-care (01) ==
LOC: ER 12:58
DX: B34.9 Viral infection, unspecified (principal); J32.9 Chronic sinusitis, unspecified; R42 Dizziness and giddiness; R05 Cough; R09.81 Nasal congestion; E78.00 Pure hypercholesterolemia, unspecified; I10 Essential (primary) hypertension; E11.9 Type 2 diabetes mellitus without complications
CPT/HCPCS: 36415; 71046; 80053; 85025; 87070; 87804; 87880; 93005; 93010; 99285

== ENCOUNTER → 2019-12-22 | Outpatient (CLI) | payer MEDICARE ==
[2019-12-22 08:40] LABS: ABSOLUTE EOSINOPHILS # (AUTO) 0.2 10^3/uL (0.0-0.6); ABSOLUTE LYMPHOCYTES (AUTO) 1.8 10^3/uL (0.5-4.7); ABSOLUTE MONOCYTES (AUTO) 0.4 10^3/uL (0.1-1.4); ABSOLUTE NEUT (AUTO) 2.2 10^3/uL (1.7-8.2); BASOPHILS % (AUTO) 0.9 % (0-2); EOSINOPHILS % (AUTO) 3.3 % (0-6); HEMATOCRIT 35.8 % (37.9-51.0); HEMOGLOBIN 12.1 g/dL (13.5-17.0); LYMPHOCYTES % (AUTO) 39.6 % (13-45); MEAN CORPUSCULAR HEMOGLOBIN 29.8 pg (27.0-33.4); MEAN CORPUSCULAR HGB CONC 33.9 g/dL (32.0-36.0); MEAN CORPUSCULAR VOLUME 88 fl (80-97); MONOCYTES % (AUTO) 9.1 % (3-13); PLATELET COUNT 279 10^3/uL (150-450); RED BLOOD COUNT 4.07 10^6/uL (4.35-5.55); RED CELL DISTRIBUTION WIDTH 13.4 % (11.5-14.0); SEGMENTED NEUTROPHILS % (AUTO) 47.1 % (42-78); TOTAL CELLS COUNTED % (AUTO) 100 %; WHITE BLOOD COUNT 4.6 10^3/uL (4.0-10.5)
[2019-12-22 08:57] LABS: ALBUMIN 3.9 g/dL (3.5-5.0); ANION GAP 10 (5-19); BLOOD UREA NITROGEN 20 mg/dL (7-20); CALCIUM 7.3 mg/dL (8.4-10.2); CARBON DIOXIDE 16 mmol/L (22-30); CHLORIDE 109 mmol/L (98-107); GLUCOSE 185 mg/dL (75-110); PHOSPHORUS 3.4 mg/dL (2.5-4.5); POTASSIUM 4.3 mmol/L (3.6-5.0)
[2019-12-22 09:04] LABS: APPEARANCE,URINE CLEAR; BILIRUBIN,URINE NEGATIVE (NEGATIVE); COLOR,URINE YELLOW; GLUCOSE, URINE 50 mg/dL (NEGATIVE); KETONES,URINE NEGATIVE (NEGATIVE); LEUKOCYTE ESTERASE,URINE NEGATIVE (NEGATIVE); NITRITE,URINE NEGATIVE (NEGATIVE); PROTEIN,URINE 100 mg/dL (NEGATIVE); URINE SPECIFIC GRAVITY 1.019
[2019-12-23 07:37] LABS: CREATININE URINE 170.6 mg/dL (Not Estab.); MICROALBUMIN URINE 375.7 ug/mL (Not Estab.)
== END ==
LOC: OD 08:08
PROVIDERS: ATTEND Internal Medicine Nephrology
DX: I12.9 Hypertensive chronic kidney disease with stage 1 through stage 4 chronic kidney disease, or unspecified chronic kidney disease (principal); N18.3 Chronic kidney disease, stage 3 (moderate); E11.22 Type 2 diabetes mellitus with diabetic chronic kidney disease
CPT/HCPCS: 36415; 80069; 81001; 82043; 82306; 82570; 83970; 85025

== ENCOUNTER → 2019-12-26 | Outpatient (CLI) | payer MEDICARE ==
[2019-12-26 09:17] LABS: ANION GAP 5 (5-19); BLOOD UREA NITROGEN 29 mg/dL (7-20); CALCIUM 8.7 mg/dL (8.4-10.2); CARBON DIOXIDE 21 mmol/L (22-30); CHLORIDE 111 mmol/L (98-107); GLUCOSE 92 mg/dL (75-110); POTASSIUM 4.4 mmol/L (3.6-5.0)
== END ==
LOC: OD 08:03
PROVIDERS: ATTEND Internal Medicine Nephrology
DX: N18.3 Chronic kidney disease, stage 3 (moderate) (principal)
CPT/HCPCS: 36415; 80048

== ENCOUNTER 2020-03-21 09:18 | Observation (INO) | payer MEDICARE ==
[2020-03-21 10:32] LABS: ABSOLUTE EOSINOPHILS # (AUTO) 0.3 10^3/uL (0.0-0.6); ABSOLUTE LYMPHOCYTES (AUTO) 0.9 10^3/uL (0.5-4.7); ABSOLUTE MONOCYTES (AUTO) 0.8 10^3/uL (0.1-1.4); ABSOLUTE NEUT (AUTO) 6.8 10^3/uL (1.7-8.2); BASOPHILS % (AUTO) 0.2 % (0-2); EOSINOPHILS % (AUTO) 3.2 % (0-6); HEMATOCRIT 34.4 % (37.9-51.0); HEMOGLOBIN 11.4 g/dL (13.5-17.0); MEAN CORPUSCULAR HEMOGLOBIN 28.9 pg (27.0-33.4); MEAN CORPUSCULAR HGB CONC 33.1 g/dL (32.0-36.0); MEAN CORPUSCULAR VOLUME 87 fl (80-97); MONOCYTES % (AUTO) 9.3 % (3-13); PLATELET COUNT 250 10^3/uL (150-450); RED BLOOD COUNT 3.94 10^6/uL (4.35-5.55); RED CELL DISTRIBUTION WIDTH 12.8 % (11.5-14.0); SEGMENTED NEUTROPHILS % (AUTO) 77.3 % (42-78); TOTAL CELLS COUNTED % (AUTO) 100 %; WHITE BLOOD COUNT 8.8 10^3/uL (4.0-10.5)
--- NOTE | 2020-03-21 10:59 | RADIOLOGY REPORT (SQ) ---
EXAM DESCRIPTION: KNEE LEFT 4 VIEW IMAGES COMPLETED DATE/TIME: 03/21/2020 10:45 am REASON FOR STUDY: Fell on knee, swelling and pain COMPARISON: 08/09/2018. NUMBER OF VIEWS: Four views. TECHNIQUE: AP, lateral, and both oblique radiographic images acquired of the left knee. LIMITATIONS: None. FINDINGS: MINERALIZATION: Decreased. BONES: No acute fracture or dislocation. Chronic appearing proximal fibula fracture. Tricompartment osteophytosis with moderate to severe medial joint space loss. Serpiginous sclerotic foci throughou t the distal femur and proximal tibia, stable. JOINT: Small effusion. SOFT TISSUES: No soft tissue swelling. No radio-opaque foreign body. OTHER: No other significant finding. IMPRESSION: 1. Small effusion without evidence of acute bony abnormality. 2. 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 3. Serpiginous sclerotic areas throughout the distal femur and proximal tibia suggestive of prior [place] infarcts. TECHNICAL DOCUMENTATION: JOB ID: [id number] [employer]- All Rights Reserved Reading location - IP/workstation name: [email or web address]
[2020-03-21 11:03] LABS: ALBUMIN 4.1 g/dL (3.5-5.0); ALKALINE PHOSPHATASE 116 U/L (38-126); ANION GAP 9 (5-19); ASPARTATE AMINO TRANSFERASE 23 U/L (17-59); BILIRUBIN,DIRECT 0.2 mg/dL (0.0-0.4); BLOOD UREA NITROGEN 22 mg/dL (7-20); CALCIUM 9.1 mg/dL (8.4-10.2); CARBON DIOXIDE 24 mmol/L (22-30); CHLORIDE 103 mmol/L (98-107); CREATINE KINASE 194 U/L (55-170); GLUCOSE 280 mg/dL (75-110); POTASSIUM 5.2 mmol/L (3.6-5.0); TOTAL PROTEIN 7.9 g/dL (6.3-8.2)
--- NOTE | 2020-03-21 11:08 | ER Document Report ---
Entered by SUZANNE GIANG SCRIBE 03/21/20 0954 Acting as scribe for:ULISSES BROWNE MD ED Fall - General Chief Complaint: Fall Injury Stated Complaint: FALL/KNEE PAIN Time Seen by Provider: 03/21/20 09:41 Primary Care Provider: COSMO LI MD [Primary Care Provider] - Follow up as needed Mode of Arrival: Ambulatory Information source: Patient Notes: This 64 year old male patient presents to the emergency department today with complaints of falling out of bed twice prior to arrival. Patient mentions that he was trying to slide out of bed but mentions that he has "peripheral neuropathy and his legs feel heavy and he just collapses". Patient states that he has been having this problem for at least 5 years and his mentions that his falls have been increasing the past few months. states that his friend tried to give him a walker but he refused to use it and gave it back. Patient complains of bilateral knee pain where he has scraped his knees from the fall. Patient complains of left sided knee swelling and pain as well. TRAVEL OUTSIDE OF THE [place] IN LAST 30 DAYS: No - Related data Allergies/Adverse Reactions: lisinopril [Lisinopril] Allergy (Intermediate, Verified 09/22/19 18:22) Cough Past Medical History - General Information source: Patient - Social History Smoking Status: Never Smoker Cigarette use (# per day): No Frequency of alcohol use: None Drug Abuse: None Lives with: Family Family History: Reviewed & Not Pertinent, Arthritis, DM, Hypertension - Past Medical History Cardiac Medical History: Reports: Hx Hypercholesterolemia, Hx Hypertension Pulmonary Medical History: Reports: Hx COPD Endocrine Medical History: Reports: Hx Diabetes Mellitus Type 2 Malignancy Medical History: GI Medical History: Musculoskeletal Medical History: Reports Hx Arthritis - Hands , Reports Hx Musculoskeletal Deformity, Reports Hx Musculoskeletal Trauma Psychiatric Medical History: Reports: Hx Bipolar Disorder, Hx Depression Traumatic Medical History: Infectious Medical History: Past Surgical History: Reports: Hx Orthopedic Surgery - left knee - Immunizations Immunizations up to date: Yes Hx Diphtheria, Pertussis, Tetanus Vaccination: Yes Hx Pneumococcal Vaccination: 11/13/11 Review of Systems - Review of Systems Constitutional: No symptoms reported EENT: No symptoms reported Cardiovascular: No symptoms reported Respiratory: No symptoms reported Gastrointestinal: No symptoms reported Genitourinary: No symptoms reported Male Genitourinary: No symptoms reported Musculoskeletal: See HPI, Joint pain Skin: See HPI, Change in color, Lesions Hematologic/Lymphatic: No symptoms reported Neurological/Psychological: No symptoms reported -: Yes All other systems reviewed and negative Physical Exam - Vital signs Vitals: Temp Pulse Resp BP Pulse Ox 98.3 F 99 18 184/84 H 94 03/21/20 09:31 03/21/20 09:31 03/21/20 09:03/21/20 09:03/21/20 09:31 - Notes Notes: Physical Exam: General: Alert, appears well. HEENT: Normocephalic. Atraumatic. PERRL. Extraocular movements intact. Oropharynx clear. Neck: Supple. Non-tender. Respiratory: No respiratory distress. Clear and equal breath sounds bilaterally. Cardiovascular: Regular rate and rhythm. Abdominal: Normal Inspection. Non-tender. No distension. Normal Bowel Sounds. Back: No gross abnormalities. Extremities: Moves all four extremities. Upper extremities: Normal inspection. Normal ROM. Lower extremities: No peripheral edema. Entire lower extremities are tender with palpation, patient is a chronic pain patient. Left knee is swollen. Neurological: Normal cognition. AAOx4. Normal speech. Psychological: Normal affect. Normal Mood. Skin: Anterior left knee just distal to the patella there is a 7cm x 2.5cm abrasion, right knee just distal to the patella there is a smaller 3cm x 1cm abrasion. Course - Vital Signs Vital signs: Temp Pulse Resp BP Pulse Ox 98.3 F 99 18 184/84 H 94 03/21/20 09:31 03/21/20 09:31 03/21/20 09:31 03/21/20 09:03/21/20 09:31 - Laboratory Result Diagrams: 03/21/20 10:20 03/21/20 10:20 Laboratory results interpreted by me: 03/21/20 03/21/20 10:20 10:20 RBC 3.94 L Hgb 11.4 L Hct 34.4 L Lymph % (Auto) 10.0 L Sodium 135.6 L Potassium 5.2 H BUN 22 H Creatinine 2.04 H Est GFR ( Amer) 40 L Est GFR (MDRD) Non-Af 33 L Glucose 280 H Creatine Kinase 194 H - Diagnostic Test Radiology reviewed: Image reviewed, Reports reviewed - Right knee x-ray shows small effusion without acute bony abnormality. There is tricompartmental osteoarthritis with moderate to severe medial joint space loss. There are sclerotic areas throughout the distal femur proximal tibia suggesting prior bone infarcts. - EKG Interpretation by Me EKG shows normal: Sinus rhythm, [place], Intervals, QRS Complexes, ST-T Waves Rate: Normal - 90 Rhythm: NSR - Consults Dr. Shepherd Time consulted: 11:45 Consulted provider: will come to ER Discharge - Discharge Clinical Impression: Hyperkalemia, Friction burn of skin, Pain and swelling of left knee, Frequent falls Acute on chronic renal failure Qualifiers: Acute renal failure type: unspecified Chronic kidney disease stage: stage 3 (moderate) Qualified Code(s): N17.9 - Acute kidney failure, unspecified Type II diabetes mellitus Qualifiers: Diabetes mellitus care home insulin use: without care home use Diabetes mellitus complication status: with neurologic complications Diabetes mellitus complication detail: with unspecified neuropathy Qualified Code(s): E11.40 - Type 2 diabetes mellitus with diabetic neuropathy, unspecified Condition: Stable Disposition: ADMITTED INPATIENT Admitting Provider: Cora (Hospitalist) Unit Admitted: Medical Floor Referrals: COSMO LI MD [Primary Care Provider] - Follow up as needed I personally performed the services described in the documentation, reviewed and edited the documentation which was dictated to the scribe in my presence, and it accurately records my words and actions.
[2020-03-21] MEDS ORDERED: SILVER SULFADIAZINE 1% CREAM 25 GM TP ONE (11:34)
[2020-03-21] MEDS ORDERED: RINGERS SOLUTION,LACTATED 1,000 ML IV ONE (11:43)
[2020-03-21] MEDS ORDERED: OXYCODONE-ACETAMINOPHEN 5-325 MG TABLET PO ONE (13:00)
[2020-03-21] MEDS ORDERED: ACETAMINOPHEN 325 MG TABLET PO PRN (14:05)
--- NOTE | 2020-03-21 14:05 | PDOC H&P ---
History of Present Illness Admission Date/PCP: 03/21/20 12:22 COSMO LI MD Patient complains of: Multiple falls. Knee pain. Uncontrolled diabetes. Acute on chronic kidney injury History of Present Illness: LAKEISHA YATES is a 64 year old male with a history of chronic kidney disease requiring several months of hemodialysis last year. He also has diabetes mellitus type 2 with bed peripheral neuropathy, peripheral arterial disease and hypertension. He fell twice yesterday. He was unable to easily get up the second time and sustained rug leach on both knees. He began to have swelling and increased pain in both knees. He has had a poor appetite lately. His reports that he has been keeping up with fluids however. He denies any diarrhea or vomiting. It seems that his neuropathy is worsening. He reports that he cannot feel his feet and this makes for an unsteady gait. In addition he has osteoarthritis of the knees and hips. He does have a history of alcoholism but has not taken any alcohol over the last 5 years. The patient will be admitted to the hospital service. He will receive IV fluids. We will monitor his renal function. He will be on Lantus and sliding scale with Accu-Cheks at mealtime and bedtime. I will likely expand treatment of his diabetic neuropathy as well. I have also asked physical therapy to assess the patient. Past Medical History Cardiac Medical History: Reports: Hyperlipidema, Hypertension Denies: Coronary Artery Disease, Myocardial Infarction Pulmonary Medical History: Reports: Chronic Obstructive Pulmonary Disease (COPD) Denies: Asthma, Bronchitis, Pneumonia, Tuberculosis Neurological Medical History: Reports: Other - Severe diabetic neuropathy Denies: Seizures Endocrine Medical History: Reports: Diabetes Mellitus Type 2 Renal/ Medical History: Reports: Chronic Kidney Disease Malignancy Medical History: Reports: None GI Medical History: Musculoskeltal Medical History: Reports: Arthritis - Hands Psychiatric Medical History: Reports: Bipolar Disorder, Depression Traumatic Medical History: Reports: None Hematology: Denies: Anemia, Hemophilia, Sickle Cell Disease Infectious Medical History: Past Surgical History Past Surgical History: Reports: Orthopedic Surgery - left knee Social History Information Source: Patient, Relative - Abscess Lives with: Spouse/Significant other Smoking Status: Never Smoker Electronic Cigarette use?: No Frequency of Alcohol Use: None - History of alcoholism. Stopped drinking 5 years ago. Hx Recreational Drug Use: No Drugs: None Hx Prescription Drug Abuse: Yes - Advance Directive Resuscitation Status: Full Code Surrogate healthcare decision maker:: The patient's would be the designated decision maker Family History Family History: Arthritis, DM, Hypertension Parental Family History Reviewed: Yes Children Family History Reviewed: Yes Sibling(s) Family History Reviewed.: Yes Medication/Allergy Home Medications: Amlodipine Besylate [Norvasc 10 mg Tablet] 10 mg PO DAILY 01/25/17 Glipizide [Glucotrol 10 mg Tablet] 10 mg PO DAILY 01/25/17 Metoprolol Tartrate [Lopressor 100 mg Tablet] 50 mg PO Q12 01/25/17 Trazodone HCl 150 mg PO QHS 01/25/17 Hydralazine HCl [Apresoline 25 mg Tablet] 25 mg PO Q8 #90 tablet 02/02/17 Alprazolam [Xanax 0.5 mg Tablet] 0.5 mg PO BIDP PRN 03/21/20 Insulin Glargine,Hum.rec.anlog [Lantus Insulin 100 Unit/1 ml 10 ml] 60 unit SQ DAILY 03/21/20 Losartan Potassium [Cozaar 25 mg Tablet] 25 mg PO DAILY 03/21/20 Oxycodone HCl/Acetaminophen [Percocet 5-325 mg Tablet] 1 tab PO Q8 03/21/20 Pravastatin Sodium 40 mg PO QHS 03/21/20 Sertraline HCl 100 mg PO DAILY 03/21/20 Allergies/Adverse Reactions: lisinopril [Lisinopril] Allergy (Intermediate, Verified 09/22/19 18:22) Cough Review of Systems All systems: reviewed and no additional remarkable complaints except as stated Constitutional: PRESENT: weakness Musculoskeletal: PRESENT: other - Knee pain bilateral, hip pain bilateral Integumentary: PRESENT: lesions - Skin abrasions/rug burn to bilateral knees small skin tear left hallux Neurological: PRESENT: abnormal gait Psychiatric: PRESENT: depression Physical Exam Vital Signs: Temp Pulse Resp BP Pulse Ox 98.3 F 99 18 184/84 H 94 03/21/20 09:31 03/21/20 09:31 03/21/20 09:31 03/21/20 09:31 03/21/20 09:31 Intake & Output 03/20/20 03/21/20 03/22/20 06:59 06:59 06:59 Weight 95.4 kg General appearance: PRESENT: no acute distress, cooperative, well-developed Head exam: PRESENT: atraumatic, normocephalic Eye exam: PRESENT: conjunctival injection, other - Dirty sclera Ear exam: PRESENT: normal external ear exam. ABSENT: bleeding, drainage Mouth exam: PRESENT: moist, tongue midline Neck exam: ABSENT: carotid bruit, JVD, lymphadenopathy, tenderness Respiratory exam: PRESENT: clear to auscultation dimitrios, symmetrical, unlabored. ABSENT: rales, rhonchi, tachypnea, wheezes Cardiovascular exam: PRESENT: RRR, +S1, +S2, other - Positive S4. ABSENT: diastolic murmur, irregular rhythm, systolic murmur GI/Abdominal exam: PRESENT: normal bowel sounds, soft. ABSENT: distended, guarding, mass, tenderness Rectal exam: PRESENT: deferred Gentrourinary exam: ABSENT: indwelling catheter Extremities exam: PRESENT: joint swelling - Bilateral knees. ABSENT: pedal edema Musculoskeletal exam: PRESENT: tenderness - Both knees. ABSENT: deformity Neurological exam: PRESENT: alert, awake, oriented to person, oriented to place, oriented to time, oriented to situation, CN II-XII grossly intact. ABSENT: altered Psychiatric exam: PRESENT: flat affect. ABSENT: agitated, anxious Focused psych exam: ABSENT: delusional, paranoid, restlessness Skin exam: PRESENT: dry, warm, other - Dressings on both knees. Skin abrasions present per emergency department physician. Small area of avulsed epidermis m edial aspect left hallux. Bruising left instep.. ABSENT: rash Results Laboratory Results: 03/21/20 10:20 03/21/20 10:20 03/21/20 03/21/20 10:20 10:20 WBC 8.8 RBC 3.94 L Hgb 11.4 L Hct 34.4 L MCV 87 MCH 28.9 MCHC 33.1 RDW 12.8 Plt Count 250 Seg Neutrophils % 77.3 Sodium 135.6 L Potassium 5.2 H Chloride 103 Carbon Dioxide 24 Anion Gap 9 BUN 22 H Creatinine 2.04 H Est GFR ( Amer) 40 L Glucose 280 H Calcium 9.1 Total Bilirubin 1.0 AST 23 Alkaline Phosphatase 116 Total Protein 7.9 Albumin 4.1 03/21/20 10:20 Creatine Kinase 194 H Impressions: Knee X-Ray 03/21/20 09:53 IMPRESSION: 1. Small effusion without evidence of acute bony abnormality. 2. 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 3. Serpiginous sclerotic areas throughout the distal femur and proximal tibia suggestive of prior bony infarcts. Assessment and Plan - Diagnosis (1) Frequent falls Is this a current diagnosis for this admission?: Yes Plan: 03/21/2020 Multiple falls. The patient blames his neuropathy. It is likely combination of the neuropathy and osteoarthritis. I have asked physical therapy to see the patient. X-ray of the left knee reveals no fractures. Ice packs to the knees. Analgesia for pain. (2) Diabetic neuropathy Qualifiers: Diabetes mellitus type: type 2 Diabetes mellitus complication detail: diabetic polyneuropathy Qualified Code(s): E11.42 - Type 2 diabetes mellitus with diabetic polyneuropathy Is this a current diagnosis for this admission?: Yes Plan: 03/21/2020 Patient reports feeling tingling as opposed to normal sensation on both legs. The neuropathy is causing problems with gait and balance. The patient is not currently on any gabapentin or Lyrica. Will discuss further and likely modified medications. (3) Hyperglycemia due to type 2 diabetes mellitus Qualifiers: Diabetes mellitus nursing home insulin use: with supervisor intermediates use Qualified Code(s): E11.65 - Type 2 diabetes mellitus with hyperglycemia; Z79.4 - residential (current) use of insulin Is this a current diagnosis for this admission?: Yes Plan: 03/21/2020 The patient's reports that his glucose readings typically are above 250. I have ordered a hemoglobin A1c. He will be on Lantus as well as his oral medication with sliding scale coverage. I will adjust Lantus based on sliding scale requirements. In addition he will be on a controlled carbohydrate diet. (4) Acute on chronic renal failure Qualifiers: Acute renal failure type: unspecified Chronic kidney disease stage: stage 3 (moderate) Qualified Code(s): N17.9 - Acute kidney failure, unspecified; N18.3 - Chronic kidney disease, stage 3 (moderate) Is this a current diagnosis for this admission?: Yes Plan: 03/21/2019 It is difficult to know if this is a volume issue or worsening of intrinsic diabetic nephropathy. Patient does see nephrology. He was on hemodialysis last year for several months. We will administer gentle IV fluids and monitor his urine output as well as his serum chemistries. (5) Hyperkalemia Is this a current diagnosis for this admission?: Yes Plan: 03/21/2020 Likely related to acute progression of underlying chronic kidney disease. I did not administer Kayexalate as I believe his potassium will normalize with gentle IV fluids. Recheck laboratory studies tomorrow. (6) Pain and swelling of left knee Is this a current diagnosis for this admission?: Yes Plan: 03/21/2020 X-rays of the left knee show old fractures but no acute fractures. There is some effusion and it notes tricompartmental osteoarthritis. Will avoid nonsteroidal anti-inflammatory medications due to his kidney disease. Analgesia as needed. Advance physical therapy to see the patient as well. (7) Gait disorder Is this a current diagnosis for this admission?: Yes Plan: 03/21/2020 Multifactorial including arthritis and neuropathy. Physical therapy to assess (8) Osteoarthritis of both knees Qualifiers: Osteoarthritis type: primary Qualified Code(s): M17.0 - Bilateral primary osteoarthritis of knee Is this a current diagnosis for this admission?: Yes Plan: 03/21/2020 Need to avoid nonsteroidal anti-inflammatory medications. Topical NSAIDs such as diclofenac might be helpful. (9) Friction burn of skin Is this a current diagnosis for this admission?: Yes Plan: 03/21/2020 Conservative care. Will apply Silvadene and nonstick dressings. (10) Hypertension Qualifiers: Hypertension type: essential hypertension Qualified Code(s): I10 - Essential (primary) hypertension Is this a current diagnosis for this admission?: Yes Plan: 03/21/2020 Continue antihypertensive medications. Monitor angiotensin receptor héctor medication and renal function. Continue to monitor vital signs. (11) Knee pain, bilateral Qualifiers: Chronicity: chronic Qualified Code(s): M25.561 - Pain in right knee; M25.562 - Pain in left knee; G89.29 - Other chronic pain Is this a current diagnosis for this admission?: Yes Plan: 03/21/2020 Acute on chronic in fact. In addition to physical therapy I have also ordered ice packs as we need to avoid systemic anti-inflammatory medication. - Time Time Spent with patient: 35 or more minutes Medications reviewed and adjusted accordingly: Yes Anticipated discharge: Home with Homehealth - Based on physical therapy assessment and response to treatment. - Inpatient Certification Based on my medical assessment, after consideration of the patient's comorbidities, presenting symptoms, or acuity I expect that the services needed warrant INPATIENT care.: Yes I certify that my determination is in accordance with my understanding of Medicare's requirements for reasonable and necessary INPATIENT services [42 CFR 412.3e].: Yes Medical Necessity: Need Close Monitoring Due to Risk of Patient Decompensation, Need For IV Fluids, Need for Pain Control, Risk of Complication if Not Cared For in Hospital Post Hospital Care: D/C Courier Driver Documentation
[2020-03-21] MEDS ORDERED: ALPRAZOLAM 0.5 MG TABLET PO PRN (14:12)
[2020-03-21 14:33] LABS: APPEARANCE,URINE CLEAR; BILIRUBIN,URINE NEGATIVE (NEGATIVE); COLOR,URINE STRAW; GLUCOSE, URINE >=500 mg/dL (NEGATIVE); KETONES,URINE NEGATIVE (NEGATIVE); LEUKOCYTE ESTERASE,URINE NEGATIVE (NEGATIVE); NITRITE,URINE NEGATIVE (NEGATIVE); PROTEIN,URINE 30 mg/dL (NEGATIVE); URINE SPECIFIC GRAVITY 1.002; UROBILINOGEN,URINE NEGATIVE mg/dL (<2.0)
[2020-03-21] MEDS ORDERED: DEXTROSE 40% GEL 15 GM TUBE PO PRN ×2 (14:49)
[2020-03-21] MEDS ORDERED: GLUCAGON,HUMAN RECOMB 1 MG INJ IM PRN (14:49)
[2020-03-21] MEDS ORDERED: DEXTROSE 50%-WATER 25 GM/50 ML DISP.SYRIN IV PRN ×2 (14:49)
[2020-03-21] MEDS: INSULIN LISPRO 100 UNIT/ML 3 ML VIAL SUBCUT SCH ×2 (15:40→22:29)
--- NOTE | 2020-03-21 16:16 | EKG REPORT ---
SEVERITY:- BORDERLINE ECG - SINUS RHYTHM NONSPECIFIC ST-T CHANGES- INFERIOR LEADS, MILD : Confirmed by: Giacomo Jensen MD 21-Mar-2020 16:15:08
[2020-03-21] MEDS ORDERED: LOSARTAN POTASSIUM 25 MG TABLET PO ONE (16:30)
[2020-03-21] MEDS ORDERED: AMLODIPINE BESYLATE 5 MG TABLET PO ONE (16:30)
[2020-03-21] MEDS: HYDRALAZINE HCL INJ/PF 20 MG/1 ML SDV IV PRN ×2 (16:34→20:40)
[2020-03-21] MEDS: NORMAL SALINE 1000 ML 1,000 ML IV PRN (16:34)
[2020-03-21] MEDS: DOCUSATE SODIUM 100 MG CAPSULE PO SCH (17:04)
[2020-03-21] MEDS: OXYCODONE-ACETAMINOPHEN 5-325 MG TABLET PO PRN (19:26)
[2020-03-21] MEDS: METOPROLOL TARTRATE 100 MG TABLET PO SCH (21:17)
[2020-03-21] MEDS: HYDRALAZINE HCL 25 MG TABLET PO SCH (21:18)
[2020-03-21] MEDS: HEPARIN SOD (PORCINE) 5,000 UNIT/ML 1 ML VIAL SUBCUT SCH (21:24)
[2020-03-21] MEDS ORDERED: ATORVASTATIN CALCIUM 20 MG TABLET PO SCH (22:00)
[2020-03-21] MEDS ORDERED: TRAZODONE HCL 50 MG TABLET PO SCH (22:00)
[2020-03-22] MEDS: OXYCODONE-ACETAMINOPHEN 5-325 MG TABLET PO PRN ×2 (03:44→07:46)
[2020-03-22] MEDS: HEPARIN SOD (PORCINE) 5,000 UNIT/ML 1 ML VIAL SUBCUT SCH ×2 (05:19→13:09)
[2020-03-22] MEDS: HYDRALAZINE HCL 25 MG TABLET PO SCH ×2 (05:19→13:09)
[2020-03-22] MEDS: NORMAL SALINE 1000 ML 1,000 ML IV PRN (05:20)
[2020-03-22 06:31] LABS: ABSOLUTE EOSINOPHILS # (AUTO) 0.3 10^3/uL (0.0-0.6); ABSOLUTE MONOCYTES (AUTO) 0.8 10^3/uL (0.1-1.4); BASOPHILS % (AUTO) 0.4 % (0-2); EOSINOPHILS % (AUTO) 4.3 % (0-6); HEMATOCRIT 33.2 % (37.9-51.0); HEMOGLOBIN 10.8 g/dL (13.5-17.0); LYMPHOCYTES % (AUTO) 12.6 % (13-45); MEAN CORPUSCULAR HEMOGLOBIN 28.4 pg (27.0-33.4); MEAN CORPUSCULAR HGB CONC 32.6 g/dL (32.0-36.0); MEAN CORPUSCULAR VOLUME 87 fl (80-97); MONOCYTES % (AUTO) 9.9 % (3-13); PLATELET COUNT 238 10^3/uL (150-450); RED BLOOD COUNT 3.81 10^6/uL (4.35-5.55); RED CELL DISTRIBUTION WIDTH 13.2 % (11.5-14.0); SEGMENTED NEUTROPHILS % (AUTO) 72.8 % (42-78); TOTAL CELLS COUNTED % (AUTO) 100 %; WHITE BLOOD COUNT 8.2 10^3/uL (4.0-10.5)
[2020-03-22 06:48] LABS: ANION GAP 7 (5-19); BLOOD UREA NITROGEN 15 mg/dL (7-20); CALCIUM 8.9 mg/dL (8.4-10.2); CARBON DIOXIDE 21 mmol/L (22-30); CHLORIDE 109 mmol/L (98-107); CHOLESTEROL 173.61 mg/dL (0-200); CREATINE KINASE 561 U/L (55-170); GLUCOSE 180 mg/dL (75-110); PHOSPHORUS 2.5 mg/dL (2.5-4.5); POTASSIUM 4.4 mmol/L (3.6-5.0); TRIGLYCERIDES 95 mg/dL (<150)
[2020-03-22 06:59] LABS: DIRECT LDL 102 mg/dL (<100)
[2020-03-22] MEDS: INSULIN LISPRO 100 UNIT/ML 3 ML VIAL SUBCUT SCH ×2 (07:46→11:20)
[2020-03-22] MEDS: METOPROLOL TARTRATE 100 MG TABLET PO SCH (09:53)
[2020-03-22] MEDS: DOCUSATE SODIUM 100 MG CAPSULE PO SCH (09:53)
[2020-03-22] MEDS ORDERED: AMLODIPINE BESYLATE 10 MG TABLET PO SCH (10:00)
[2020-03-22] MEDS ORDERED: GLIPIZIDE 10 MG TABLET PO SCH (10:00)
[2020-03-22] MEDS ORDERED: SILVER SULFADIAZINE 1% CREAM 25 GM TP SCH (10:00)
[2020-03-22] MEDS ORDERED: LOSARTAN POTASSIUM 25 MG TABLET PO SCH (10:00)
[2020-03-22] MEDS ORDERED: INSULIN GLARGINE,HUM.REC.ANLOG 1,000 UNIT/10 ML VIAL SUBCUT SCH (10:00)
[2020-03-22] MEDS ORDERED: SERTRALINE HCL 50 MG TABLET PO SCH (10:00)
[2020-03-22 12:56] VITALS: BP 159/80
--- NOTE | 2020-03-22 13:32 | PDOC DISCHARGE SUMMARY ---
Impression - Admit/DC Date/PCP Admission Date/Primary Care Provider: 03/21/20 12:22 COSMO LI MD Discharge Date: 03/22/20 - Discharge Diagnosis (1) Frequent falls Is this a current diagnosis for this admission?: Yes (2) Diabetic neuropathy Is this a current diagnosis for this admission?: Yes (3) Hyperglycemia due to type 2 diabetes mellitus Is this a current diagnosis for this admission?: Yes (4) Acute on chronic renal failure Is this a current diagnosis for this admission?: Yes (5) Hyperkalemia Is this a current diagnosis for this admission?: Yes (6) Pain and swelling of left knee Is this a current diagnosis for this admission?: Yes (7) Gait disorder Is this a current diagnosis for this admission?: Yes (8) Osteoarthritis of both knees Is this a current diagnosis for this admission?: Yes (9) Friction burn of skin Is this a current diagnosis for this admission?: Yes (10) Hypertension Is this a current diagnosis for this admission?: Yes (11) Knee pain, bilateral Is this a current diagnosis for this admission?: Yes - Additional Information Resuscitation Status: Full Code Referrals: LEVI PEREZ MD [NO LOCAL MD] - (LEFT A MESSAGE WITH THE PCP FOR FOLLOW UP APPT) Home Medications: Amlodipine Besylate [Norvasc 10 mg Tablet] 10 mg PO DAILY 01/25/17 Glipizide [Glucotrol 10 mg Tablet] 10 mg PO DAILY 01/25/17 Metoprolol Tartrate [Lopressor 100 mg Tablet] 50 mg PO Q12 01/25/17 Trazodone HCl 150 mg PO QHS 01/25/17 Hydralazine HCl [Apresoline 25 mg Tablet] 25 mg PO Q8 #90 tablet 02/02/17 Alprazolam [Xanax 0.5 mg Tablet] 0.5 mg PO BIDP PRN 03/21/20 Losartan Potassium [Cozaar 25 mg Tablet] 25 mg PO DAILY 03/21/20 Oxycodone HCl/Acetaminophen [Percocet 5-325 mg Tablet] 1 tab PO Q8 03/21/20 Pravastatin Sodium 40 mg PO QHS 03/21/20 Sertraline HCl 100 mg PO DAILY 03/21/20 Acetaminophen [Tylenol 325 mg Tablet] 650 mg PO Q4HP PRN tablet 03/22/20 Insulin Glargine,Hum.rec.anlog [Lantus Insulin 100 Unit/1 ml 10 ml] 65 unit SQ DAILY #0 03/22/20 Silver Sulfadiazine [Silvadene 1% Cream 25 gm] 1 applic TP DAILY tube 03/22/20 History of Present Illiness History of Present Illness: LAKEISHA YATES is a 64 year old male with a history of chronic kidney disease requiring several months of hemodialysis last year. He also has diabetes mellitus type 2 with bed peripheral neuropathy, peripheral arterial disease and hypertension. He fell twice yesterday. He was unable to easily get up the second time and sustained rug leach on both knees. He began to have swelling and increased pain in both knees. He has had a poor appetite lately. His reports that he has been keeping up with fluids however. He denies any diarrhea or vomiting. It seems that his neuropathy is worsening. He reports that he cannot feel his feet and this makes for an unsteady gait. In addition he has osteoarthritis of the knees and hips. He does have a history of alcoholism but has not taken any alcohol over the last 5 years. The patient will be admitted to the hospital service. He will receive IV fluids. We will monitor his renal function. He will be on Lantus and sliding scale with Accu-Cheks at mealtime and bedtime. I will likely expand treatment of his diabetic neuropathy as well. I have also asked physical therapy to assess the patient. Hospital Course Hospital Course: Fairly unremarkable hospital course. Physical therapy saw him today. Abdomen other than needing a walker he did better than expected. Since he is anxious for home and he is otherwise stable he will be discharged home. I did order home health to continue with therapy at home. Physical Exam Vital Signs: Temp Pulse Resp BP Pulse Ox 98.2 F 73 19 159/80 H 95 03/22/20 10:57 03/22/20 10:57 03/22/20 10:57 03/22/20 10:57 03/22/20 10:57 Intake & Output 03/21/20 03/22/20 03/23/20 06:59 06:59 06:59 Intake Total 2620 620 Output Total 200 Balance 2620 420 Weight 99 kg General appearance: PRESENT: no acute distress Respiratory exam: PRESENT: clear to auscultation dimitrios, symmetrical, unlabored. ABSENT: accessory muscle use, tachypnea, wheezes Cardiovascular exam: PRESENT: RRR, +S1, +S2 GI/Abdominal exam: PRESENT: normal bowel sounds, soft. ABSENT: tenderness Musculoskeletal exam: PRESENT: ambulatory. ABSENT: normal inspection - Still some swelling. Splint Covan is removed swelling in the knee will also dissipate Neurological exam: PRESENT: alert, awake, oriented to person, oriented to place, oriented to time, oriented to situation Psychiatric exam: PRESENT: appropriate affect, normal mood. ABSENT: agitated, anxious Focused psych exam: ABSENT: delusional, paranoid, restlessness Skin exam: PRESENT: other - Friction leach on both knees. Dressing in place. Results Laboratory Results: WBC 8.2 10^3/uL (4.0-10.5) 03/22/20 06:22 RBC 3.81 10^6/uL (4.35-5.55) L 03/22/20 06:22 Hgb 10.8 g/dL (13.5-17.0) L 03/22/20 06:22 Hct 33.2 % (37.9-51.0) L 03/22/20 06:22 MCV 87 fl (80-97) 03/22/20 06:22 MCH 28.4 pg (27.0-33.4) 03/22/20 06:22 MCHC 32.6 g/dL (32.0-36.0) 03/22/20 06:22 RDW 13.2 % (11.5-14.0) 03/22/20 06:22 Plt Count 238 10^3/uL (150-450) 03/22/20 06:22 Lymph % (Auto) 12.6 % (13-45) L 03/22/20 06:22 [place] % (Auto) 9.9 % (3-13) 03/22/20 06:22 Eos % (Auto) 4.3 % (0-6) 03/22/20 06:22 Baso % (Auto) 0.4 % (0-2) 03/22/20 06:22 Absolute Neuts (auto) 6.0 10^3/uL (1.7-8.2) 03/22/20 06:22 Absolute Lymphs (auto) 1.0 10^3/uL (0.5-4.7) 03/22/20 06:22 Absolute Monos (auto) 0.8 10^3/uL (0.1-1.4) 03/22/20 06:22 Absolute Eos (auto) 0.3 10^3/uL (0.0-0.6) 03/22/20 06:22 Absolute Basos (auto) 0.0 10^3/uL (0.0-0.2) 03/22/20 06:22 Seg Neutrophils % 72.8 % (42-78) 03/22/20 06:22 Sodium 137.3 mmol/L (137-145) 03/22/20 06:22 Potassium 4.4 mmol/L (3.6-5.0) 03/22/20 06:22 Chloride 109 mmol/L (98-107) H 03/22/20 06:22 Carbon Dioxide 21 mmol/L (22-30) L 03/22/20 06:22 Anion Gap 7 (5-19) 03/22/20 06:22 BUN 15 mg/dL (7-20) 03/22/20 06:22 Creatinine 1.65 mg/dL (0.52-1.25) H 03/22/20 06:22 Est GFR ( Amer) 51 (>60) L 03/22/20 06:22 Est GFR (MDRD) Non-Af 42 (>60) L 03/22/20 06:22 Glucose 180 mg/dL (75-110) H 03/22/20 06:22 POC Glucose 172 mg/dL (70-110) H 03/22/20 11:03 Hemoglobin A1c % 9.2 % (4.7-6.0) H 03/22/20 06:22 Calcium 8.9 mg/dL (8.4-10.2) 03/22/20 06:22 Phosphorus 2.5 mg/dL (2.5-4.5) 03/22/20 06:22 Magnesium 1.7 mg/dL (1.6-2.3) 03/22/20 06:22 Total Bilirubin 1.0 mg/dL (0.2-1.3) 03/21/20 10:20 Direct Bilirubin 0.2 mg/dL (0.0-0.4) 03/21/20 10:20 Neonat Total Bilirubin Not Reportable 03/21/20 10:20 Neonat Direct Bilirubin Not Reportable 03/21/20 10:20 Neonat Indirect Bili Not Reportable 03/21/20 10:20 AST 23 U/L (17-59) 03/21/20 10:20 ALT 14 U/L (<50) 03/21/20 10:20 Alkaline Phosphatase 116 U/L (38-126) 03/21/20 10:20 Creatine Kinase 561 U/L (55-170) H 03/22/20 06:22 Total Protein 7.9 g/dL (6.3-8.2) 03/21/20 10:20 Albumin 4.1 g/dL (3.5-5.0) 03/21/20 10:20 Triglycerides 95 mg/dL (<150) 03/22/20 06:22 Cholesterol 173.61 mg/dL (0-200) 03/22/20 06:22 LDL Cholesterol Direct 102 mg/dL (<100) H 03/22/20 06:22 VLDL Cholesterol 19.0 mg/dL (10-31) 03/22/20 06:22 HDL Cholesterol 46 mg/dL (>40) 03/22/20 06:22 PTH Intact 65.7 pg/mL (10.0-65.0) H 03/22/20 06:22 Urine Color STRAW 03/21/20 14:21 Urine Appearance CLEAR 03/21/20 14:21 Urine pH 6.0 (5.0-9.0) 03/21/20 14:21 Ur Specific [place] 1.002 03/21/20 14:21 Urine Protein 30 mg/dL (NEGATIVE) H 03/21/20 14:21 Urine Glucose (UA) >=500 mg/dL (NEGATIVE) H 03/21/20 14:21 Urine Ketones NEGATIVE mg/dL (NEGATIVE) 03/21/20 14:21 Urine Blood SMALL (NEGATIVE) H 03/21/20 14:21 Urine Nitrite NEGATIVE (NEGATIVE) 03/21/20 14:21 Urine Bilirubin NEGATIVE (NEGATIVE) 03/21/20 14:21 Urine Urobilinogen NEGATIVE mg/dL (<2.0) 03/21/20 14:21 Ur Leukocyte Esterase NEGATIVE (NEGATIVE) 03/21/20 14:21 Urine WBC (Auto) 0 /HPF 03/21/20 14:21 Urine Ascorbic Acid NEGATIVE (NEGATIVE) 03/21/20 14:21 Impressions: Knee X-Ray 03/21/20 09:53 IMPRESSION: 1. Small effusion without evidence of acute bony abnormality. 2. 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 3. Serpiginous sclerotic areas throughout the distal femur and proximal tibia suggestive of prior bony infarcts. Plan Health Concerns: Severe arthritis in his knees. He was evaluated for joint placement surgery in the past. I suggested he get reevaluated as it is contributing to his falls. Plan of Treatment: Discharge home with home health and physical therapy Goals: Reevaluation of osteoarthritis of the knees. Improvement of gait and balance and reassessment by orthopedic surgery Time Spent: Greater than 30 Minutes Stroke Is this a Stroke Patient?: No Acute Heart Failure - Is this a Heart Failure Patient?: No
== END 2020-03-22 14:23 | disposition home health service (06) ==
LOC: ER 09:18 → INTOOBSV 12:22 → EH 12:22 → 4S 15:25
PROVIDERS: ADMIT Hospitalist; ATTEND Hospitalist
DX: M17.0 Bilateral primary osteoarthritis of knee (principal); R29.6 Repeated falls; E11.42 Type 2 diabetes mellitus with diabetic polyneuropathy; E11.65 Type 2 diabetes mellitus with hyperglycemia; E11.22 Type 2 diabetes mellitus with diabetic chronic kidney disease; I12.9 Hypertensive chronic kidney disease with stage 1 through stage 4 chronic kidney disease, or unspecified chronic kidney disease; N17.9 Acute kidney failure, unspecified; N18.3 Chronic kidney disease, stage 3 (moderate); E87.5 Hyperkalemia; T24.022A Burn of unspecified degree of left knee, initial encounter; T24.021A Burn of unspecified degree of right knee, initial encounter; S80.212A Abrasion, left knee, initial encounter; S80.211A Abrasion, right knee, initial encounter; S91.119A Laceration without foreign body of unspecified toe without damage to nail, initial encounter; X58.XXXA Exposure to other specified factors, initial encounter; M25.562 Pain in left knee; M25.561 Pain in right knee; W06.XXXA Fall from bed, initial encounter; R26.81 Unsteadiness on feet; M16.0 Bilateral primary osteoarthritis of hip; F10.21 Alcohol dependence, in remission; M25.462 Effusion, left knee; G89.29 Other chronic pain; E78.5 Hyperlipidemia, unspecified; F32.9 Major depressive disorder, single episode, unspecified; Z79.899 Other long term (current) drug therapy; Z82.49 Family history of ischemic heart disease and other diseases of the circulatory system; Z82.61 Family history of arthritis; Z79.4 Long term (current) use of insulin
CPT/HCPCS: 93005; 99285; 36415 ×2; 82962 ×2; 82550 ×2; 83735; 84100; 85025 ×2; 80048; 80053; 81001; 82652; 83036; 80061; 83970; 73564; 93010; 97162; A9270 ×20; J1644 ×2; J0360; J7030 ×2; J7120; G0378; J1815; J3490

== ENCOUNTER 2020-08-01 15:58 | Emergency (ER) | payer MEDICARE ==
[2020-08-01] MEDS ORDERED: OXYCODONE-ACETAMINOPHEN 5-325 MG TABLET PO ONE (18:16)
--- NOTE | 2020-08-01 18:32 | ER Document Report ---
ED Medical Screen (RME) - General Chief Complaint: Fall Injury Stated Complaint: FALL/LEFT LEG,KNEE,ANKLE PAIN Time Seen by Provider: 08/01/20 18:11 Primary Care Provider: LEVI PEREZ MD [Primary Care Provider] - Follow up as needed Mode of Arrival: Wheelchair Information source: Patient Notes: Patient with complaints of left knee and left lower extremity pain. Patient reports he passed out and fell. He states that he last passed out approximately 6 months ago, no one has been able to find a reason for his syncopal episodes. He denies any chest pain or shortness of breath. Swelling noted to left knee. I have greeted and performed a rapid initial assessment of this patient. A comprehensive ED assessment and evaluation of the patient, analysis of test results and completion of the medical decision making process will be conducted by additional ED providers. I have specifically instructed the patient or family members with the patient to immediately return to any nursing staff should anything change in the patient's condition or with their chief complaint. TRAVEL OUTSIDE OF THE [place] IN LAST 30 DAYS: No - Related Data Allergies/Adverse Reactions: lisinopril [Lisinopril] Allergy (Intermediate, Verified 08/01/20 18:11) Cough Past Medical History - Past Medical History Cardiac Medical History: Reports: Hx Hypercholesterolemia, Hx Hypertension Denies: Hx Coronary Artery Disease, Hx Heart Attack Pulmonary Medical History: Reports: Hx COPD Denies: Hx Asthma, Hx Bronchitis, Hx Pneumonia, Hx Tuberculosis Neurological Medical History: Denies: Hx Cerebrovascular Accident, Hx Seizures Endocrine Medical History: Reports: Hx Diabetes Mellitus Type 2 Renal/ Medical History: Denies: Hx Peritoneal Dialysis Malignancy Medical History: GI Medical History: Denies: Hx Pancreatitis Musculoskeltal Medical History: Reports Hx Arthritis - Hands , Reports Hx Musc uloskeletal Deformity, Reports Hx Musculoskeletal Trauma, Denies Hx Systemic Lupus Erythematosus Psychiatric Medical History: Reports: Hx Bipolar Disorder, Hx Depression Traumatic Medical History: Infectious Medical History: Past Surgical History: Reports: Hx Orthopedic Surgery - left knee - Immunizations Immunizations up to date: Yes Hx Diphtheria, Pertussis, Tetanus Vaccination: Yes Physical Exam - Vital signs Vitals: Temp Pulse Resp BP Pulse Ox 98.2 F 68 18 100/65 100 08/01/20 16:05 08/01/20 16:05 08/01/20 16:05 08/01/20 16:05 08/01/20 16:05 Course - Vital Signs Vital signs: Temp Pulse Resp BP Pulse Ox 98.2 F 68 18 100/65 100 08/01/20 16:05 08/01/20 16:05 08/01/20 16:05 08/01/20 16:05 08/01/20 16:05 Doctor's Discharge - Discharge Referrals: LEVI PEREZ MD [Primary Care Provider] - Follow up as needed
--- NOTE | 2020-08-01 19:04 | RADIOLOGY REPORT (SQ) ---
EXAM DESCRIPTION: TIBIA FIBULA LEFT IMAGES COMPLETED DATE/TIME: 08/01/2020 6:51 pm REASON FOR STUDY: fall, L leg pain COMPARISON: None. NUMBER OF VIEWS: Two views. TECHNIQUE: Two radiographic images acquired of the left tibia and fibula to include the knee and ank le in at least one projection. LIMITATIONS: None. FINDINGS: MINERALIZATION: Normal. BONES: There is a chronic fracture of the proximal fibula. There appears to be a an acute component through the callus from a previous fracture. SOFT TISSUES: No obvious swelling or foreign body. OTHER: No other significant finding. IMPRESSION: Acute superimposed on chronic fracture of the proximal fibular. TECHNICAL DOCUMENTATION: JOB ID: [id number] 2010 [employer]- All Rights Reserved Reading location - IP/workstation name: [email or web address]
--- NOTE | 2020-08-01 19:05 | RADIOLOGY REPORT (SQ) ---
EXAM DESCRIPTION: KNEE LEFT 4 VIEW IMAGES COMPLETED DATE/TIME: 08/01/2020 6:51 pm REASON FOR STUDY: fall, L leg pain COMPARISON: None. NUMBER OF VIEWS: Four views. TECHNIQUE: AP, lateral, and both oblique radiographic images acquired of the left knee. LIMITATIONS: None. FINDINGS: MINERALIZATION: Osteopenia. BONES: Acute superimposed on chronic fracture of the proximal fibula. Bone infarct distal femur and proximal tibia. JOINT: Joint effusion. SOFT TISSUES: No soft tissue swelling. No radio-opaque foreign body. OTHER: No other significant finding. IMPRESSION: Joint effusion. Bone infarcts. Acute superimposed on chronic fracture of the proximal fibula. TECHNICAL DOCUMENTATION: JOB ID: [id number] 2010 [employer]- All Rights Reserved Reading location - IP/workstation name: [email or web address]
--- NOTE | 2020-08-01 19:26 | EKG REPORT ---
SEVERITY:- NORMAL ECG - SINUS RHYTHM : Confirmed by: Hui Barraza MD 01-Aug-2020 19:25:35
[2020-08-01 19:36] LABS: ABSOLUTE BASOPHILS # (AUTO) 0.1 10^3/uL (0.0-0.2); ABSOLUTE EOSINOPHILS # (AUTO) 0.4 10^3/uL (0.0-0.6); ABSOLUTE LYMPHOCYTES (AUTO) 1.5 10^3/uL (0.5-4.7); ABSOLUTE MONOCYTES (AUTO) 0.6 10^3/uL (0.1-1.4); ABSOLUTE NEUT (AUTO) 6.3 10^3/uL (1.7-8.2); BASOPHILS % (AUTO) 0.6 % (0-2); EOSINOPHILS % (AUTO) 4.3 % (0-6); HEMATOCRIT 34.2 % (37.9-51.0); HEMOGLOBIN 11.6 g/dL (13.5-17.0); LYMPHOCYTES % (AUTO) 16.7 % (13-45); MEAN CORPUSCULAR HGB CONC 33.8 g/dL (32.0-36.0); MEAN CORPUSCULAR VOLUME 86 fl (80-97); MONOCYTES % (AUTO) 7.1 % (3-13); PLATELET COUNT 297 10^3/uL (150-450); RED BLOOD COUNT 3.99 10^6/uL (4.35-5.55); RED CELL DISTRIBUTION WIDTH 12.6 % (11.5-14.0); SEGMENTED NEUTROPHILS % (AUTO) 71.3 % (42-78); TOTAL CELLS COUNTED % (AUTO) 100 %; WHITE BLOOD COUNT 8.8 10^3/uL (4.0-10.5)
[2020-08-01 19:50] LABS: ALBUMIN 4.2 g/dL (3.5-5.0); ALKALINE PHOSPHATASE 88 U/L (38-126); ANION GAP 11 (5-19); ASPARTATE AMINO TRANSFERASE 17 U/L (17-59); BILIRUBIN,DIRECT 0.1 mg/dL (0.0-0.4); BILIRUBIN,TOTAL 0.3 mg/dL (0.2-1.3); BLOOD UREA NITROGEN 28 mg/dL (7-20); CALCIUM 9.4 mg/dL (8.4-10.2); CARBON DIOXIDE 23 mmol/L (22-30); CHLORIDE 97 mmol/L (98-107); POTASSIUM 5.1 mmol/L (3.6-5.0); TOTAL PROTEIN 7.8 g/dL (6.3-8.2)
[2020-08-01 20:03] LABS: GLUCOSE 433 mg/dL (75-110)
[2020-08-01] MEDS ORDERED: CEPHALEXIN 500 MG CAPSULE PO ONE (23:39)
[2020-08-01] MEDS ORDERED: INSULIN GLARGINE,HUM.REC.ANLOG 1,000 UNIT/10 ML VIAL SUBCUT ONE (23:39)
[2020-08-01] MEDS ORDERED: HYDROCODONE/ACETAMINOPHEN 5-325 MG TABLET PO ONE (23:40)
--- NOTE | 2020-08-01 23:40 | ER Document Report ---
ED General - General Chief Complaint: Fall Injury Stated Complaint: FALL/LEFT LEG,KNEE,ANKLE PAIN Time Seen by Provider: 08/01/20 18:11 Primary Care Provider: LEVI PEREZ MD [Primary Care Provider] - Follow up as needed Mode of Arrival: Wheelchair Notes: CHIEF COMPLAINT: Multiple complaints HPI: 64-year-old male presenting with multiple complaints. Patient is a poorly controlled diabetic. Additional history provided by his . Patient is on Lantus 60 units at night only, does not consistently take his insulin during the day. states that sugars in the morning are good sugars in the evening are not good usually 400 or higher. They do not have an edgerman have been following with PCP. Patient states when his sugars do go lower he does have a tendency to fall has fallen 10 or 15 times in the last several years. Patient had a fall this morning landing on his knees complains of proximal left lower extremity injury and knee pain. Patient states that he did pass out but this is typical of the episodes he has been having an followed with his PCP. Has no headache denies neck pain denies chest pain denies shortness of breath. Patient does complain of a rash to the right ear and behind the ear for several days. No fevers. ROS: See HPI - all other systems were reviewed and are otherwise negative Constitutional: no fever Eyes: no drainage, no blurred vision ENT: no runny nose, no sore throat Cardiovascular: no chest pain Resp: no SOB, no cough GI: no vomiting, no diarrhea, no abdominal pain : no dysuria Integumentary: + rash Allergy: no hives Musculoskeletal: + extremity pain or swelling Neurological: no numbness/tingling, no weakness MEDICATIONS: I agree with the patient medications as charted by the RN. ALLERGIES: I agree with the allergies as charted by the RN. PAST MEDICAL HISTORY/PAST SURGICAL HISTORY: Reviewed and agree as charted by RN. SOCIAL HISTORY: Reviewed and agree as charted by RN. FAMILY HISTORY: No significant familial comorbid conditions directly related to patient complaint EXAM: Reviewed vital signs as charted by RN. CONSTITUTIONAL: Alert and oriented and responds appropriately to questions. Well-appearing; well-nourished HEAD: Normocephalic; atraumatic EYES: PERRL; Conjunctivae clear, sclerae non-icteric ENT: normal nose; no rhinorrhea; moist mucous membranes; pharynx without lesions noted, no uvula edema or deviation, no tonsillar hypertrophy, phonation normal NECK: Supple without meningismus; non-tender; no cervical lymphadenopathy, no masses CARD: RRR; no murmurs, no clicks, no rubs, no gallops; symmetric distal pulses RESP: Normal chest excursion without splinting or tachypnea; breath sounds clear and equal bilaterally; no wheezes, no rhonchi, no rales, pulse oximetry 98% on room air not hypoxic ABD/GI: Normal bowel sounds; non-distended; soft, non-tender, no rebound, no guarding; no palpable organomegaly or masses. BACK: The back appears normal and is non-tender to palpation, there is no CVA tenderness EXT: Normal ROM in all joints; there is tenderness to the proximal fibular region of the left lower extremity on palpation with slight effusion over the left anterior knee but patient is able to flex and extend the left leg at the knee. No hip or ankle discomfort on palpation or range of motion; no cyanosis, no effusions, no edema SKIN: Normal color for age and race; warm; dry; good turgor; there is a erythematous scabbed weeping rash to the right pinna with slight edema and also in the right posterior auricular region. NEURO: Moves all extremities equally; Motor and sensory function intact PSYCH: The patient's mood and manner are appropriate. Grooming and personal hyg iene are appropriate. MDM: EKG normal sinus rhythm with a ventricular rate of 70, MO 156, QT 384, QTc 415. Normal EKG. No other ectopy. Interpreted by emergency department physicians. 64-year-old male who has a history of syncopal type episodes he believes come from low blood sugars. He is a poorly controlled diabetic. He is noted to have renal insufficiency had previously been on dialysis so creatinine is actually at baseline. His blood sugars elevated above 400. I spoke with him at length about this. normally gives him 60 units of Lantus at night, he has not yet had this but would like it here in the emergency department. Patient has a proximal fibular fracture acute on chronic in the left lower extremity. This is a weightbearing fracture, will give crutches and pain med icine and refer to orthopedics. They do not have an edgerman, I will give them a referral for an edgerman to hopefully obtain better blood glucose control. Patient does appear to have a tinea rash to the right pinna with some secondary infection at this time will place on Keflex and Lotrisone TRAVEL OUTSIDE OF THE [place] IN LAST 30 DAYS: No - Related Data Allergies/Adverse Reactions: lisinopril [Lisinopril] Allergy (Intermediate, Verified 08/01/20 18:11) Cough Past Medical History - General Information source: Patient - Social History Smoking Status: Smoker,Current Status Unk Family History: Arthritis, DM, Hypertension - Past Medical History Cardiac Medical History: Reports: Hx Hypercholesterolemia, Hx Hypertension Denies: Hx Coronary Artery Disease, Hx Heart Attack Pulmonary Medical History: Reports: Hx COPD Denies: Hx Asthma, Hx Bronchitis, Hx Pneumonia, Hx Tuberculosis Neurological Medical History: Denies: Hx Cerebrovascular Accident, Hx Seizures Endocrine Medical History: Reports: Hx Diabetes Mellitus Type 2 Renal/ Medical History: Denies: Hx Peritoneal Dialysis Malignancy Medical History: GI Medical History: Denies: Hx Pancreatitis Musculoskeletal Medical History: Reports Hx Arthritis - Hands , Reports Hx Musculoskeletal Deformity, Reports Hx Musculoskeletal Trauma, Denies Hx Systemic Lupus Erythematosus Psychiatric Medical History: Reports: Hx Bipolar Disorder, Hx Depression Traumatic Medical History: Infectious Medical History: Past Surgical History: Reports: Hx Orthopedic Surgery - left knee - Immunizations Immunizations up to date: Yes Hx Diphtheria, Pertussis, Tetanus Vaccination: Yes Hx Pneumococcal Vaccination: 11/13/11 Physical Exam - Vital signs Vitals: Temp Pulse Resp BP Pulse Ox 98.2 F 68 18 100/65 100 08/01/20 16:05 08/01/20 16:05 08/01/20 16:05 08/01/20 16:05 08/01/20 16:05 Course - Vital Signs Vital signs: Temp Pulse Resp BP Pulse Ox 98.2 F 68 18 100/65 100 08/01/20 16:05 08/01/20 16:05 08/01/20 16:05 08/01/20 16:05 08/01/20 16:05 - Laboratory Result Diagrams: 08/01/20 19:00 08/01/20 19:00 Laboratory results interpreted by me: 08/01/20 08/01/20 19:00 19:00 RBC 3.99 L Hgb 11.6 L Hct 34.2 L Sodium 131.0 L Potassium 5.1 H Chloride 97 L BUN 28 H Creatinine 2.64 H Est GFR ( Amer) 30 L Est GFR (MDRD) Non-Af 24 L Glucose 433 H* Discharge - Discharge Clinical Impression: Tinea, Staphylococcal infection of skin, Hyperglycemia Fall Qualifiers: Encounter type: initial encounter Qualified Code(s): W19.XXXA - Unspecified fall, initial encounter Syncope Qualifiers: Syncope type: unspecified Qualified Code(s): R55 - Syncope and collapse Fibula upper end fracture Qualifiers: Encounter type: initial encounter Fracture type: closed Fracture morphology: other fracture Laterality: left Qualified Code(s): S82.832A - Other fracture of upper and lower end of left fibula, initial encounter for closed fracture Condition: Stable Disposition: HOME, SELF-CARE Additional Instructions: Take the pain medication as prescribed, no driving and watch for balance issues of taking narcotics. Use the crutches weightbearing as tolerated given the fracture in the left lower extremity. You have been referred to orthopedics for further evaluation of this. Follow-up with endocrinology for further evaluation and management of your diabetes as it appears to be poorly controlled. You can call Dr. iWll Rubio, Endocrinology at [facility] for follow up . Use the Lotrisone cream on the right ear take the Keflex to treat the secondary bacterial infection of the skin. Prescriptions: Cephalexin Monohydrate [Keflex 500 mg Capsule] 500 mg PO Q6H 7 Days #28 capsule Clotrimazole/Betamethasone Dip [Lotrisone Cream 15 gm] 1 applic TP BID 5 Days #1 tube Hydrocodone/Acetaminophen [[place] 5-325 mg Tablet] 1 tab PO Q4 PRN #15 tablet PRN Reason: Referrals: LEVI PEREZ MD [Primary Care Provider] - Follow up as needed
[2020-08-02 01:20] VITALS: BP 102/68
== END 2020-08-02 01:08 | disposition home or self-care (01) ==
LOC: ER 15:58
DX: S82.832A Other fracture of upper and lower end of left fibula, initial encounter for closed fracture (principal); W19.XXXA Unspecified fall, initial encounter; L08.9 Local infection of the skin and subcutaneous tissue, unspecified; B95.8 Unspecified staphylococcus as the cause of diseases classified elsewhere; B35.9 Dermatophytosis, unspecified; E11.65 Type 2 diabetes mellitus with hyperglycemia; N28.9 Disorder of kidney and ureter, unspecified; I10 Essential (primary) hypertension; J44.9 Chronic obstructive pulmonary disease, unspecified; Z88.8 Allergy status to other drugs, medicaments and biological substances; Z79.4 Long term (current) use of insulin
CPT/HCPCS: 93005; 99285; 96372; 36415; 85025; 80053; 84484; 73564; 73590; 93010; A9270 ×4; J1815